=== PATIENT | male | born 1990 | race Caucasian/White ===

== ENCOUNTER 2021-03-24 16:54 | Emergency (ER) | payer OTHER, SELFPAY ==
[2021-03-24 17:04] VITALS: BP 128/80; PULSE 120; RESP 20; TEMP 36.6; O2SAT 99; BMI 28.7
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
--- NOTE | 2021-03-24 19:49 | PC.NURSE ---
Per PA, pt is a N consult. Pt resting in chair, eating/drinking without difficulty, sitter at bedside. This RN faxing to [facility].
--- NOTE | 2021-03-24 20:43 | PC.NURSE ---
PT ambulated to pod with steady gait. Calm and cooperative. PT needs crisis consult.
[2021-03-24 21:54] LABS: MANUAL DIFF FLAG NO
[2021-03-24] MEDS: Benztropine Mesylate 1 MG TABLET PO (21:55)
[2021-03-24] MEDS: LORazepam 1 MG TABLET 2 MG PO (21:55)
[2021-03-24] MEDS: risperiDONE 2 MG TABLET PO (21:56)
[2021-03-24 21:59] LABS: Basophils Absolute Auto 0.1 X10*3/uL (0.0-0.2); Basophils Percent Auto 0.4 % (0-2); Eosinophils Absolute Auto 0.1 X10*3/uL (0.0-0.4); Eosinophils Percent Auto 0.8 % (0-4); Hematocrit 41.7 % (42-52); Hemoglobin 14.5 g/dl (14.0-18.0); Imm Gran Abs Auto 0.03 X10*3/uL (0.00-0.03); Imm Gran Pct Auto 0.2 % (0.0-0.4); Lymphocytes Absolute Auto 2.6 X10*3/uL (1.2-4.9); Lymphocytes Percent Auto 19.1 % (20-40); Mean Corpuscular HGB Conc 34.8 g/dl (31.0-36.0); Mean Corpuscular Hemoglobin 31.7 pg (27.0-33.0); Mean Corpuscular Volume 91.2 fL (80-98); Mean Platelet Volume 10.4 fL (9.4-12.4); Monocytes Absolute Auto 1.2 X10*3/uL (0.1-1.2); Monocytes Percent Auto 8.6 % (2-11); Neutrophils Absolute Auto 9.5 X10*3/uL (2.0-8.3); Neutrophils Percent Auto 70.9 % (45-73); Platelet Count 200 X10*3/uL (160-400); Red Blood Count 4.57 X10*6/uL (4.60-5.80); White Blood Count 13.3 X10*3/uL (4.8-10.8)
[2021-03-24 22:26] LABS: Ethanol < 10 mg/dL
[2021-03-24 22:32] LABS: Alanine Aminotransferase 33 U/L (0-40); Albumin Level 4.7 g/dL (3.5-5.0); Alkaline Phosphatase 105 U/L (39-117); Anion Gap 17 (12-20); Aspartate Amino Transferase 31 U/L (5-37); Bilirubin Direct 0.2 mg/dL (0.0-0.5); Bilirubin Total 0.4 mg/dL (0.0-1.0); Blood Urea Nitrogen 7 mg/dL (9-16); Calcium 9.8 mg/dL (8.4-10.2); Carbon Dioxide 21 mmol/L (22-29); Chloride 105 mmol/L (96-108); Creatinine Clr Calc Pharmacy 109.2; Estimated Glomerular Filt Rate > 60; Glucose Random 125 mg/dL (60-115); Sodium 139 mmol/L (135-145); Total Protein 7.2 g/dL (6.5-8.0)
[2021-03-24] MEDS: Nicotine Polacrilex 2 MG GUM BUCCAL (23:33)
[2021-03-24 23:48] LABS: Glucose Urine UA NEG (NEG); Leukocyte Esterase Urine NEG (NEG); Nitrite Urine NEG (NEG); Specific Gravity - Urine <= 1.005 (1.005-1.025); Urine Blood NEG (NEG); Urine Ketones NEG (NEG); Urine Protein NEG (NEG-TRACE)
[2021-03-24 23:51] LABS: Appearance Urine CLEAR; Color Urine COLORLESS; UACC CULT NO
[2021-03-24 23:55] LABS: RBC Urine 0 /HPF (0); WBC Urine 0 /HPF (0-4)
[2021-03-25 00:15] LABS: Amphetamine Screen Urine Not Detected (Not Detect); Barbiturates, Urine Not Detected (Not Detect); Benzodiazepines Screen Urine Not Detected (Not Detect); Cannabinoid Screen Urine Not Detected (Not Detect); Cocaine Screen Urine Not Detected (Not Detect); Opiate Screen Urine Not Detected (Not Detect); Phencyclidine Screen Urine Not Detected (Not Detect)
[2021-03-25 00:36] LABS: COVID-19 Test Negative (Negative)
[2021-03-25 00:50] VITALS: BP 114/61; PULSE 108; RESP 18; TEMP 36.7; O2SAT 99
--- NOTE | 2021-03-25 00:57 | PC.NURSE ---
Patient just got transferred from main ED, [facility] consult ordered, per care team patient will be seen by N in the morning, patient swabbed for covid/compliant, no distress reported at this time, will continue to monitor.
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
--- NOTE | 2021-03-25 06:53 | PC.NURSE ---
Report received. PT currently sleeping, respirations even and unlabored, in no apparent distress. PT is inpatient bedsearch.
[2021-03-25] MEDS: Nicotine Polacrilex 2 MG GUM BUCCAL ×3 (07:38→14:36)
[2021-03-25] MEDS: Benztropine Mesylate 1 MG TABLET PO (09:02)
[2021-03-25 09:24] VITALS: BP 121/74; PULSE 103; RESP 16; TEMP 37.1; O2SAT 99
[2021-03-25] MEDS: Ibuprofen 800 MG TABLET PO (11:17)
== END 2021-03-25 15:16 ==
PROVIDERS: Nurse Practitioner Family; Physician Assistant; Emergency Provider Emergency Medicine Emergency Medical Services; PCP Family Medicine
DX: F20.9 Schizophrenia, unspecified (principal); F06.0 Psychotic disorder with hallucinations due to known physiological condition; R45.850 Homicidal ideations; F41.9 Anxiety disorder, unspecified; Z20.822 Contact with and (suspected) exposure to COVID-19; Z91.5 Personal history of self-harm; Z79.899 Other long term (current) drug therapy
CPT/HCPCS: 36415; 80053; 80076; 80307; 80320; 81001; 82248; 85025; 87635; 99285

== ENCOUNTER 2021-05-21 18:35 | Inpatient (IN) | payer OTHER, SELFPAY ==
[2021-05-21 18:49] VITALS: BP 128/93; PULSE 91; RESP 18; TEMP 36.3; O2SAT 98; BMI 26.9
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
--- NOTE | 2021-05-21 19:22 | PC.NURSE ---
BROTHER ROCIO [phone]
[2021-05-21 19:54] LABS: Amphetamine Screen Urine Not Detected (Not Detect); Barbiturates, Urine Not Detected (Not Detect); Benzodiazepines Screen Urine Not Detected (Not Detect); Cannabinoid Screen Urine Not Detected (Not Detect); Cocaine Screen Urine Not Detected (Not Detect); Opiate Screen Urine Not Detected (Not Detect); Phencyclidine Screen Urine Not Detected (Not Detect)
[2021-05-21 20:01] LABS: COVID-19 Test Negative (Negative)
--- NOTE | 2021-05-21 21:46 | PC.NURSE ---
Patient calm and quiet, no distress observed/reported, [facility] referral completed via smart-sheet, called [facility] intake personal, spoke with Aviva, NO Clinician ETA at this time, will continue to monitor.
[2021-05-22] MEDS: risperiDONE 2 MG TABLET PO ×3 (01:00→20:40)
[2021-05-22] MEDS: Benztropine Mesylate 1 MG TABLET PO ×3 (01:00→20:40)
[2021-05-22 01:57] VITALS: BP 111/82; PULSE 68; RESP 16; TEMP 36.8; O2SAT 99
--- NOTE | 2021-05-22 02:03 | PC.NURSE ---
Patient in bed resting at this time, compliant with night time medication, Care team assessed the patient, disposition section 12 inpatient bed search, will continue to monitor.
--- NOTE | 2021-05-22 05:51 | PC.NURSE ---
Patient slept through the night, no distress observed/reported, good behavioral control awhile awake, will continue to monitor.
[2021-05-22 08:06] VITALS: BP 127/64; PULSE 81; RESP 17; TEMP 36.7
--- NOTE | 2021-05-22 08:30 | ECG_ITS ---
Test Reason : MEDICAL CLEARANCE Blood Pressure : / mmHG Vent. Rate : 055 BPM Atrial Rate : 055 BPM P-R Int : 120 ms QRS Dur : 086 ms QT Int : 434 ms P-R-T Axes : -18 067 062 degrees QTc Int : 415 ms Sinus bradycardia Early repolarization Otherwise normal ECG When compared with ECG of 21-NOV-2018 21:39, No significant change was found Referred By: Rajni Arce Electronically Signed By:Nader Bailey
[2021-05-22 08:58] LABS: MANUAL DIFF FLAG NO
[2021-05-22 09:01] LABS: Basophils Percent Auto 0.5 % (0-2); Eosinophils Absolute Auto 0.4 X10*3/uL (0.0-0.4); Eosinophils Percent Auto 6.3 % (0-4); Hematocrit 40.2 % (42-52); Hemoglobin 13.7 g/dl (14.0-18.0); Imm Gran Abs Auto 0.01 X10*3/uL (0.00-0.03); Imm Gran Pct Auto 0.2 % (0.0-0.4); Lymphocytes Absolute Auto 1.8 X10*3/uL (1.2-4.9); Lymphocytes Percent Auto 29.4 % (20-40); Mean Corpuscular HGB Conc 34.1 g/dl (31.0-36.0); Mean Corpuscular Hemoglobin 31.1 pg (27.0-33.0); Mean Corpuscular Volume 91.4 fL (80-98); Mean Platelet Volume 10.5 fL (9.4-12.4); Monocytes Absolute Auto 0.7 X10*3/uL (0.1-1.2); Monocytes Percent Auto 11.2 % (2-11); Neutrophils Absolute Auto 3.3 X10*3/uL (2.0-8.3); Neutrophils Percent Auto 52.4 % (45-73); Platelet Count 176 X10*3/uL (160-400); Red Cell Distribution Width 12.3 % (11.0-16.0); White Blood Count 6.2 X10*3/uL (4.8-10.8)
[2021-05-22 09:05] LABS: INTERNATIONAL NORM RATIO 1.1 (0.9-1.1); Prothrombin Time 13.1 SEC (10.8-13.0)
[2021-05-22 09:26] LABS: Alanine Aminotransferase 21 U/L (0-40); Albumin Level 4.3 g/dL (3.5-5.0); Alkaline Phosphatase 87 U/L (39-117); Anion Gap 10 (12-20); Aspartate Amino Transferase 15 U/L (5-37); Bilirubin Total 0.4 mg/dL (0.0-1.0); Blood Urea Nitrogen 9 mg/dL (9-16); Calcium 9.5 mg/dL (8.4-10.2); Carbon Dioxide 29 mmol/L (22-29); Chloride 106 mmol/L (96-108); Creatinine Clr Calc Pharmacy 101.4; Estimated Glomerular Filt Rate > 60; Glucose Random 84 mg/dL (60-115); Potassium 4.6 mmol/L (3.3-5.1); Sodium 140 mmol/L (135-145); Total Protein 6.4 g/dL (6.5-8.0)
--- NOTE | 2021-05-22 11:43 | PC.NURSE ---
pt has been calm, requested nicotine lozenges which was provided, pt will be admitted to at some point today
--- NOTE | 2021-05-22 12:30 | PC.NURSE ---
received report from prior nurse, client seems guarded, patient appears in no distress
[2021-05-22 16:09] VITALS: BP 116/59; PULSE 76; RESP 15; TEMP 37.1; O2SAT 100
--- NOTE | 2021-05-22 19:43 | PC.NURSE ---
RN to RN report given to JESÚS Billy on M3. Plan for admission to room 307-1. Will continue to monitor.
--- NOTE | 2021-05-22 20:24 | PC.NURSE ---
Pt pending admission/transfer to M3 upon entering orders. Unable to admit until admission orders are entered. M3 also aware.
[2021-05-22 21:30] VITALS: BP 120/68; PULSE 72; RESP 16; TEMP 36.9; O2SAT 99
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
[2021-05-23 07:33] LABS: Cholesterol 176 mg/dL; HDL Cholesterol 36 mg/dL; LDL Cholesterol Calculated 122 mg/dl; Triglycerides 93 mg/dL
[2021-05-23 07:53] LABS: Thyroid Stimulating Hormone 0.58 uIU/mL (0.32-4.0)
[2021-05-23 07:54] LABS: Estimated Average Glucose 103 mg/dL; Hemoglobin A1c % 5.2 %
[2021-05-23 08:02] VITALS: BP 101/55; PULSE 72; RESP 18; TEMP 36.6; O2SAT 100
[2021-05-23] MEDS: Benztropine Mesylate 1 MG TABLET PO ×2 (08:05→21:10)
[2021-05-23] MEDS: risperiDONE 2 MG TABLET PO ×2 (08:05→21:10)
--- NOTE | 2021-05-23 13:14 | P.HPPS_ITS ---
HPI Chief Complaint: SI Sources of Information: patient interviewed, chart reviewed and crisis/core team assessment reviewed HPI Subjective Notes: Conditional Voluntary Narrative: Mr. Orozco is a 30 year-old male with hx of schizophrenia who was brought [place] [facility] [place] after mother called 911 due to pt endorsing suicidal ideation with plan to jump out of window. Pt also reported several delusional content including thinking that he has a daughter that he has never met and voices telling him that many bad things will happen to him. In the ED his utox was negative. On the unit, pt continues to endorse depressed mood, suicidal ideation prompted by increase paranoid delusions thinking that he will soon as voices are telling him and that he has a daughter. He reports taking medications as prescribed. He reports fair sleep/appetite. He also reports thinking that neighbors were talking about him and could hear his conversations with his family. He reports not feeling safe anywhere. He currently denies any plan or intent to hurt himself. Medical Evaluation Reviewed: Yes Inpatient: 02/2021 at [facility], multiple other admissions. OP: YUSUF Singh Past trials: risperiodne Suicide attempts: none [facility] Medical History Schizoaffective disorder Family History: none Social History: lives with parents. No children. 2 brothers and one sister. Substance History: none Trauma History: denies Diagnostics Vital Signs (24Hr): Vital Signs - 24 hr 05/23/21 19:40 05/24/21 07:48 Temperature 98.2 F 98.2 F Pulse Rate 81 86 Respiratory Rate 17 Blood Pressure 119/69 105/57 L Pulse Oximetry 99 95 Body Mass Index 26.9 Labs Results: 05/22/21 08:55 05/22/21 08:55 Labs: Laboratory Results - last 48 hr 05/23/21 05/23/21 06:50 06:51 Estimat Average Glucose 103 Hemoglobin A1c % 5.2 Triglycerides 93 Cholesterol 176 LDL Cholesterol, Calc 122 HDL Cholesterol 36 TSH 0.58 Meds/Allergies Meds Home Medications Acetaminophen (Acetaminophen 325 Mg Tablet) 650 mg PO Q6H PRN PRN Reason: Headache/Pain Mild Scale (1-3) Al Hydroxide/Mg Hydroxide (Magnesium Hydrox/Alum Hydrox 30 Ml Oral.Susp) 30 ml PO Q6H PRN PRN Reason: Heartburn/Nausea Benztropine Mesylate (Benztropine Mesylate 1 Mg Tablet) 1 mg PO BID [facility] Last Admin: 05/24/21 07:49 Dose: 1 mg Documented by: Haloperidol (Haloperidol 5 Mg Tablet) 5 mg PO BID [facility] Hydroxyzine HCl (Hydroxyzine Hcl 25 Mg Tablet) 25 mg PO BEDTIME PRN PRN Reason: Anxiety Lorazepam (Lorazepam 1 Mg Tablet) 1 mg PO Q4H PRN PRN Reason: Anxiety Magnesium Hydroxide (Milk Of Magnesia 30 Ml Oral.Susp) 30 ml PO DAILY PRN PRN Reason: Constipation Nicotine Polacrilex (Nicotine Polacrilex 4 Mg Lozenge) 4 mg BUCCAL Q2H PRN PRN Reason: smoking craving Last Admin: 05/24/21 13:02 Dose: 4 mg Documented by: Risperidone (Risperidone 2 Mg Tablet) 2 mg PO BID [facility] Last Admin: 05/24/21 07:49 Dose: 2 mg Documented by: Risperidone (Risperidone Microspheres 50 Mg/2 Ml Syringe) 50 mg IM Q14D GRACE Trazodone HCl (Trazodone Hcl 50 Mg Tablet) 50 mg PO BEDTIME PRN PRN Reason: Insomnia Last Admin: 05/23/21 21:10 Dose: 50 mg Documented by: Allergies Allergies Allergy/AdvReac Type Severity Reaction Status Date / Time No Known Allergies Allergy Verified 05/21/21 18:56 [No Known Allergies*] Mental Status Exam Mental Status Exam Narrative: Appearance: casually groomed, fair hygiene, in NAD Behavior: calm, cooperative Psychomotor: no agitation or retardation noted Speech: clear, normal rate/rhythm/volume, spontaneous TP: tangential TC: paranoid/persecutory delusions of neighbors hearing conversations and someone trying to hurt him Mood: anxious Affect:congruent, constricted SI:denies HI:denies AH/VH:AH telling him that he will soon Delusions:paranoid/persecutory delusions Insight/judgment:poor x 2. Memory/cog: alert, oriented x 3. impaired secondary to psychiatric problems. Assessment & Plan Assessment & Plan (1) Chronic schizophrenia: Status: Acute Code(s): F20.9 - Schizophrenia, unspecified Assessment and Plan: 1. continue oral risperidone 2mg po BID- pt also on risperidone consta- will have to verify last dose. 2. Add haldol prn for agitation/psychosis and ativan 1mg po q4h prn anxiety. Reason for continued inpatient stay Substantial Risk for: harm to self and inability to function
[2021-05-23 19:40] VITALS: BP 119/69; PULSE 81; TEMP 36.8; O2SAT 99
[2021-05-23] MEDS: traZODone HCL 50 MG TABLET PO (21:10)
[2021-05-24 07:48] VITALS: BP 105/57; PULSE 86; RESP 17; TEMP 36.8; O2SAT 95
[2021-05-24] MEDS: Benztropine Mesylate 1 MG TABLET PO ×2 (07:49→19:58)
[2021-05-24] MEDS: risperiDONE 2 MG TABLET PO ×2 (07:49→19:58)
--- NOTE | 2021-05-24 13:22 | HO.PSYCHPN ---
Subjective Subjective Date of Service: 05/24/21 Reason For Visit: SI Subjective Notes: Conditional Voluntary Interim History: Pt continues to present as hypervigilant, not feeling safe in the unit thinking that he will soon. He continues to hear voices telling him that he will . He denies SI/HI. He denies any plan or intent to hurt himself. He is open to medications- adding haldol and ativan. Medication Compliance: Yes Side effects from medications: No Review of Systems Review of Systems Constitutional: No Weight loss, No Fever, No Chills, No Night Sweats, No Fatigue, No Malaise ENT/Mouth: No Hearing loss, No Ear Pain, No Nasal Congestion, No Sinus Pain, No Hoarseness, No sore throat, No Rhinorrhea, No Swallowing Difficulty Eyes: No Eye Pain, No Swelling, No Redness, No Foreign Body, No Discharge, No Vision Changes Cardiovascular: No Chest Pain, No SOB, No Dyspnea on Exertion, No Orthopnea, No Edema, No Palpitations Respiratory: No Cough, No Sputum, No Wheezing, No Smoke Exposure, No Dyspnea Gastrointestinal: No Nausea, No Vomiting, No Diarrhea, No Constipation, No abdominal Pain, No Hematochezia, No Melena Genitourinary: no irregular bleeding, No Dysuria, No Urinary Frequency, No Hematuria, No Urinary Incontinence, No Urgency, No Flank Pain, No Urinary Flow Changes, No Hesitancy Musculoskeletal: No joint pain, No Myalgias, No Joint Swelling Skin: No Skin Lesions, No rash Neuro: No Weakness, No Numbness, No Paresthesias, No Loss of Consciousness, No Dizziness, No Headache Psych: As noted per HPI Heme/Lymph: No Bruising, No Bleeding,No Lymphadenopathy Endocrine: No Polyuria, No Polydipsia, No Temperature Intolerance Yes all other systems are reviewed and are negative Mental Status Exam Mental Status Exam Narrative: Appearance: casually groomed, fair hygiene, in NAD Behavior: calm, cooperative Psychomotor: no agitation or retardation noted Speech: clear, normal rate/rhythm/volume, spontaneous TP: tangential TC: paranoid/persecutory delusions of neighbors hearing conversations and someone trying to hurt him Mood: anxious Affect:congruent, constricted SI:denies HI:denies AH/VH:AH telling him that he will soon Delusions:paranoid/persecutory delusions Insight/judgment:poor x 2. Memory/cog: alert, oriented x 3. impaired secondary to psychiatric problems. Diagnostics Vital Signs (24Hr): Vital Signs - 24 hr 05/23/21 19:40 05/24/21 07:48 Temperature 98.2 F 98.2 F Pulse Rate 81 86 Respiratory Rate 17 Blood Pressure 119/69 105/57 L Pulse Oximetry 99 95 Body Mass Index 26.9 Labs Results: 05/22/21 08:55 05/22/21 08:55 Labs: Laboratory Results - last 48 hr 05/23/21 05/23/21 06:50 06:51 Estimat Average Glucose 103 Hemoglobin A1c % 5.2 Triglycerides 93 Cholesterol 176 LDL Cholesterol, Calc 122 HDL Cholesterol 36 TSH 0.58 Medications Medications Current Medications Generic Name Dose Route Start Last Admin Trade Name Freq PRN Reason Stop Dose Admin Acetaminophen 650 mg 05/22/21 20:25 Acetaminophen 325 Mg Tablet PO Q6H PRN Headache/Pain Mild Scale (1-3) Al Hydroxide/Mg Hydroxide 30 ml 05/22/21 20:25 Magnesium Hydrox/Alum Hydrox 30 Ml Oral.Susp PO Q6H PRN Heartburn/Nausea Benztropine Mesylate 1 mg 05/21/21 23:45 05/24/21 07:49 Benztropine Mesylate 1 Mg Tablet PO 1 mg BID GRACE Administration Haloperidol 5 mg 05/24/21 13:05 Haloperidol 5 Mg Tablet PO BID GRACE Hydroxyzine HCl 25 mg 05/22/21 20:25 Hydroxyzine Hcl 25 Mg Tablet PO BEDTIME PRN Anxiety Lorazepam 1 mg 05/24/21 13:05 Lorazepam 1 Mg Tablet PO Q4H PRN Anxiety Magnesium Hydroxide 30 ml 05/22/21 20:25 Milk Of Magnesia 30 Ml Oral.Susp PO DAILY PRN Constipation Nicotine Polacrilex 4 mg 05/22/21 09:22 05/24/21 13:02 Nicotine Polacrilex 4 Mg Lozenge BUCCAL 4 mg Q2H PRN Administration smoking craving Risperidone 2 mg 05/21/21 23:45 05/24/21 07:49 Risperidone 2 Mg Tablet PO 2 mg BID GRACE Administration Risperidone 50 mg 05/21/21 23:45 Risperidone Microspheres 50 Mg/2 Ml Syringe IM Q14D GRACE Trazodone HCl 50 mg 05/22/21 20:25 05/23/21 21:10 Trazodone Hcl 50 Mg Tablet PO 50 mg BEDTIME PRN Administration Insomnia Allergies Allergies Allergy/AdvReac Type Severity Reaction Status Date / Time No Known Allergies Allergy Verified 05/21/21 18:56 [No Known Allergies*] Assessment & Plan Assessment & Plan (1) Chronic schizophrenia: Status: Acute Code(s): F20.9 - Schizophrenia, unspecified Assessment and Plan: 1. continue oral risperidone 2mg po BID- pt also on risperidone consta- will have to verify last dose. 2. Add haldol prn for agitation/psychosis and ativan 1mg po q4h prn anxiety. Greater than 50% of the session was spent on counseling and/or coordination of care Reason for contiued inpatient stay Substantial Risk for: harm to self and inability to function
[2021-05-24] MEDS: HaloperidoL 5 MG TABLET PO ×2 (13:30→19:58)
[2021-05-24 19:50] VITALS: BP 106/64; PULSE 74; RESP 16; TEMP 36.7; O2SAT 97
[2021-05-24] MEDS: traZODone HCL 50 MG TABLET PO (19:58)
[2021-05-24] MEDS: hydrOXYzine HCL 25 MG TABLET PO (21:06)
[2021-05-25 04:05] LABS: Folate 5.3 ng/mL (> or = 4.0); Vitamin B12 196 pg/mL (200-900)
[2021-05-25 08:16] VITALS: BP 118/58; PULSE 66; RESP 16; O2SAT 97
[2021-05-25] MEDS: Benztropine Mesylate 1 MG TABLET PO ×2 (08:19→20:10)
[2021-05-25] MEDS: risperiDONE 2 MG TABLET PO ×2 (08:19→20:10)
[2021-05-25] MEDS: HaloperidoL 5 MG TABLET PO ×2 (08:19→20:10)
[2021-05-25] MEDS: Acetaminophen 325 MG TABLET 650 MG PO ×2 (12:59→18:54)
--- NOTE | 2021-05-25 14:17 | HO.PSYCHPN ---
Subjective Subjective Date of Service: 05/25/21 Reason For Visit: SI Subjective Notes: Conditional Voluntary Healthcare Proxy: No Guardianship: No Medical Problems Affecting Mental Status: No Interim History: pt is very disorganized and it is difficult to follow his narrative. the only consistent message he communicates is that he would like to discharge from the hospital sooner rather than later. he talks at some length about the TV's being too loud and overhearing people talking when MD asks about AH. he also spends a fair amount of time discoursing on his behaviors in pursuit of the opposite sex, and his frustrations in that department as well. states he is no longer mad at his neighbor and is safe to go home and act normal. 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 he denies SI but does say he is concerned that others may attack him and he is fully prepared to defend himself should that occur. denies AVH but says, but i hear the TV or the nurses talking. or they talk in a low voice if they want to say a secret. he feels the medications he takes help with his voices and decreases the phenomenon he experiences of people throwing their voices, such as making it appear their voice is coming from the bathroom when they are not in the bathroom. he is content with his medications regimen and has no other requests or complaints. MD suggests he could use a bit more time in the hospital to allow the medications to get his thoughts more organized and settled. Medication Compliance: Yes Side effects from medications: No Attending Groups: Yes Mental Status Exam Mental Status Exam Narrative: pt found resting in bed mid-morning. appropriately dressed and groomed. cooperative with interview. speech incr in amount, rate. soft and flattened in prosody. decr latency. thoughts disorganized, loose, tangential. delusions but not much paranoia. affect flexible, appropriate, normo-intense, non-labile. denies AH but from context it appears he likely is experiencing AH. denies SI/HI. Diagnostics Vital Signs (24Hr): Vital Signs - 24 hr 05/24/21 19:50 05/25/21 08:16 Temperature 98.1 F Pulse Rate 74 66 Respiratory Rate 16 16 Blood Pressure 106/64 118/58 L Pulse Oximetry 97 97 Body Mass Index 26.9 Labs Results: 05/22/21 08:55 05/22/21 08:55 Labs: Laboratory Results - last 48 hr 05/23/21 06:51 Vitamin B12 196 L Folate 5.3 Medications Medications Current Medications Generic Name Dose Route Start Last Admin Trade Name Freq PRN Reason Stop Dose Admin Acetaminophen 650 mg 05/22/21 20:25 05/25/21 12:59 Acetaminophen 325 Mg Tablet PO 650 mg Q6H PRN Administration Headache/Pain Mild Scale (1-3) Al Hydroxide/Mg Hydroxide 30 ml 05/22/21 20:25 Magnesium Hydrox/Alum Hydrox 30 Ml Oral.Susp PO Q6H PRN Heartburn/Nausea Benztropine Mesylate 1 mg 05/21/21 23:45 05/25/21 08:19 Benztropine Mesylate 1 Mg Tablet PO 1 mg BID GRACE Administration Haloperidol 5 mg 05/24/21 13:05 05/25/21 08:19 Haloperidol 5 Mg Tablet PO 5 mg BID GRACE Administration Hydroxyzine HCl 25 mg 05/22/21 20:25 05/24/21 21:06 Hydroxyzine Hcl 25 Mg Tablet PO 25 mg BEDTIME PRN Administration Anxiety Lorazepam 1 mg 05/24/21 13:05 Lorazepam 1 Mg Tablet PO Q4H PRN Anxiety Magnesium Hydroxide 30 ml 05/22/21 20:25 Milk Of Magnesia 30 Ml Oral.Susp PO DAILY PRN Constipation Nicotine Polacrilex 4 mg 05/22/21 09:22 05/25/21 14:15 Nicotine Polacrilex 4 Mg Lozenge BUCCAL 4 mg Q2H PRN Administration smoking craving Risperidone 2 mg 05/21/21 23:45 05/25/21 08:19 Risperidone 2 Mg Tablet PO 2 mg BID GRACE Administration Risperidone 50 mg 05/21/21 23:45 Risperidone Microspheres 50 Mg/2 Ml Syringe IM Q14D GRACE Trazodone HCl 50 mg 05/22/21 20:25 05/24/21 19:58 Trazodone Hcl 50 Mg Tablet PO 50 mg BEDTIME PRN Administration Insomnia Allergies Allergies Allergy/AdvReac Type Severity Reaction Status Date / Time No Known Allergies Allergy Verified 05/21/21 18:56 [No Known Allergies*] Assessment & Plan Assessment & Plan (1) Chronic schizophrenia: Status: Acute Code(s): F20.9 - Schizophrenia, unspecified Assessment and Plan: improving but still quite psychotic and delusional. 1. continue oral risperidone 2mg po BID- pt also on risperdal consta- will have to verify last dose. calls put in to [place] [place] today. 2. Added haldol for agitation/psychosis and ativan 1mg po q4h prn anxiety. Greater than 50% of the session was spent on counseling and/or coordination of care Reason for contiued inpatient stay Substantial Risk for: harm to others, inability to function and rapid decompensation
[2021-05-25 19:48] VITALS: BP 131/73; PULSE 78; RESP 18; TEMP 36.7; O2SAT 97
[2021-05-25] MEDS: traZODone HCL 50 MG TABLET PO (20:10)
[2021-05-26 07:50] LABS: Glucose, Whole Blood 96 mg/dL (60-115)
[2021-05-26] MEDS: HaloperidoL 5 MG TABLET PO ×2 (08:12→20:30)
[2021-05-26] MEDS: risperiDONE 2 MG TABLET PO ×2 (08:13→20:30)
[2021-05-26] MEDS: Benztropine Mesylate 1 MG TABLET PO ×2 (08:13→20:30)
[2021-05-26 08:38] VITALS: BP 118/65; PULSE 62; RESP 18; TEMP 35.8; O2SAT 99
--- NOTE | 2021-05-26 12:24 | HE.PHANOTE ---
Patient Own Med: Risperdal Consta Dose due 06/02/2021, patient will bring in if still inpatient Nurse and MD are aware Arianna Esteban, PharmD
--- NOTE | 2021-05-26 16:16 | HO.PSYCHPN ---
Subjective Subjective Date of Service: 05/26/21 Reason For Visit: SI Interim History: pt reports he slept well last evening, feels comfortable on the unit and around other people today. denies SI or HI. feeling calm, says he can be at home around his neighbors. he is not sure if they were targeting him, but he no longer has any urges to get back at them and just wants to stay in his room and watch TV and play video games. per staff, pt has been active and appropriate, however isolative. showered. AH improved. watching TV in a separate area from everyone else. Mental Status Exam Mental Status Exam Narrative: pt found standing at the nursing station mid-morning. appropriately dressed and groomed. cooperative with interview. speech incr in amount, nml rate. soft and flattened in prosody. decr latency. thoughts more linear and organized than yesterday. questioning his delusions, paranoia not terribly salient. affect flexible, appropriate, normo-intense, non-labile. denies SI/HI. Diagnostics Vital Signs (24Hr): Vital Signs - 24 hr 05/25/21 19:48 05/26/21 08:38 Temperature 98.1 F 96.4 F L Pulse Rate 78 62 Respiratory Rate 18 18 Blood Pressure 131/73 118/65 Pulse Oximetry 97 99 Body Mass Index 26.9 Labs Results: 05/22/21 08:55 05/22/21 08:55 Labs: Laboratory Results - last 48 hr 05/23/21 05/26/21 06:51 07:46 POC Glucose 96 Vitamin B12 196 L Folate 5.3 Medications Medications Current Medications Generic Name Dose Route Start Last Admin Trade Name Vidalq PRN Reason Stop Dose Admin Acetaminophen 650 mg 05/22/21 20:25 05/25/21 18:54 Acetaminophen 325 Mg Tablet PO 650 mg Q6H PRN Administration Headache/Pain Mild Scale (1-3) Al Hydroxide/Mg Hydroxide 30 ml 05/22/21 20:25 Magnesium Hydrox/Alum Hydrox 30 Ml Oral.Susp PO Q6H PRN Heartburn/Nausea Benztropine Mesylate 1 mg 05/21/21 23:45 05/26/21 08:13 Benztropine Mesylate 1 Mg Tablet PO 1 mg BID GRACE Administration Haloperidol 5 mg 05/24/21 13:05 05/26/21 08:12 Haloperidol 5 Mg Tablet PO 5 mg BID GRACE Administration Hydroxyzine HCl 25 mg 05/22/21 20:25 05/24/21 21:06 Hydroxyzine Hcl 25 Mg Tablet PO 25 mg BEDTIME PRN Administration Anxiety Lorazepam 1 mg 05/24/21 13:05 Lorazepam 1 Mg Tablet PO Q4H PRN Anxiety Magnesium Hydroxide 30 ml 05/22/21 20:25 Milk Of Magnesia 30 Ml Oral.Susp PO DAILY PRN Constipation Nicotine Polacrilex 4 mg 05/22/21 09:22 05/26/21 14:55 Nicotine Polacrilex 4 Mg Lozenge BUCCAL 4 mg Q2H PRN Administration smoking craving Patient Own 1 each 06/02/21 09:00 Medication ( SUBCUT Risperdal Conerta) Q14D GRACE Risperidone 2 mg 05/21/21 23:45 05/26/21 08:13 Risperidone 2 Mg Tablet PO 2 mg BID GRACE Administration Trazodone HCl 50 mg 05/22/21 20:25 05/25/21 20:10 Trazodone Hcl 50 Mg Tablet PO 50 mg BEDTIME PRN Administration Insomnia Allergies Allergies Allergy/AdvReac Type Severity Reaction Status Date / Time No Known Allergies Allergy Verified 05/21/21 18:56 [No Known Allergies*] Assessment & Plan Assessment & Plan (1) Chronic schizophrenia: Status: Acute Code(s): F20.9 - Schizophrenia, unspecified Assessment and Plan: psychosis improving daily. 1. continue oral risperidone 2mg po BID- pt also on risperdal consta- last dose 05/19, next due 06/02. 2. Added haldol for agitation/psychosis and ativan 1mg po q4h prn anxiety. Greater than 50% of the session was spent on counseling and/or coordination of care Reason for contiued inpatient stay Substantial Risk for: harm to self, inability to function and rapid decompensation
[2021-05-26 17:53] VITALS: BP 123/73; PULSE 87; RESP 16; TEMP 37.2; O2SAT 98
[2021-05-26] MEDS: traZODone HCL 50 MG TABLET PO (20:29)
[2021-05-26 22:00] VITALS: BP 120/56; PULSE 70; TEMP 36.7; O2SAT 100
[2021-05-27 06:00] VITALS: BP 103/51; PULSE 71; TEMP 36.7; O2SAT 97
[2021-05-27] MEDS: HaloperidoL 5 MG TABLET PO ×2 (08:14→20:08)
[2021-05-27] MEDS: risperiDONE 2 MG TABLET PO ×2 (08:14→20:08)
[2021-05-27] MEDS: Benztropine Mesylate 1 MG TABLET PO ×2 (08:14→20:08)
--- NOTE | 2021-05-27 10:58 | HO.PSYCHPN ---
Subjective Subjective Date of Service: 05/27/21 Reason For Visit: SI Interim History: pt reports he slept well last evening, feels comfortable on the unit and around other people today. somewhat slow to respond to some questions about his paranoia and AH, not convincing in his denials of them. pt remains hopeful of discharge by tuesday. he has no other complaints or requests for MD. per staff, pt has been active and appropriate on the unit. visible in the milieu, c/o anxiety, odd affect. calm and pleasant. attending groups. per collateral from his mother, he has been telling her he continues to hear voices and thinks people are out to get him. she believes he is not at his baseline. Mental Status Exam Mental Status Exam Narrative: pt found in his room shortly after he had taken a shower. appropriately dressed and groomed. cooperative with interview. speech nml in amount, incr in rate. soft and flattened in prosody. nml to incr latency. thoughts continue more linear and organized than 2 days prior. does not express any over delusions, does appear mistrustful of MD and hesitant in his responses. affect moderately flexible, appropriate, normo-intense, non-labile. denies SI/HI. Diagnostics Vital Signs (24Hr): Vital Signs - 24 hr 05/26/21 17:53 05/26/21 22:00 05/27/21 06:00 Temperature 99.0 F 98.1 F 98.1 F Pulse Rate 87 70 71 Respiratory Rate 16 Blood Pressure 123/73 120/56 L 103/51 L Pulse Oximetry 98 100 97 Body Mass Index 26.9 Labs Results: 05/22/21 08:55 05/22/21 08:55 Labs: Laboratory Results - last 48 hr 05/26/21 07:46 POC Glucose 96 Medications Medications Current Medications Generic Name Dose Route Start Last Admin Trade Name Freq PRN Reason Stop Dose Admin Acetaminophen 650 mg 05/22/21 20:25 05/25/21 18:54 Acetaminophen 325 Mg Tablet PO 650 mg Q6H PRN Administration Headache/Pain Mild Scale (1-3) Al Hydroxide/Mg Hydroxide 30 ml 05/22/21 20:25 Magnesium Hydrox/Alum Hydrox 30 Ml Oral.Susp PO Q6H PRN Heartburn/Nausea Benztropine Mesylate 1 mg 05/21/21 23:45 05/27/21 08:14 Benztropine Mesylate 1 Mg Tablet PO 1 mg BID GRACE Administration Haloperidol 5 mg 05/24/21 13:05 05/27/21 08:14 Haloperidol 5 Mg Tablet PO 5 mg BID GRACE Administration Hydroxyzine HCl 25 mg 05/22/21 20:25 05/24/21 21:06 Hydroxyzine Hcl 25 Mg Tablet PO 25 mg BEDTIME PRN Administration Anxiety Lorazepam 1 mg 05/24/21 13:05 Lorazepam 1 Mg Tablet PO Q4H PRN Anxiety Magnesium Hydroxide 30 ml 05/22/21 20:25 Milk Of Magnesia 30 Ml Oral.Susp PO DAILY PRN Constipation Nicotine Polacrilex 4 mg 05/22/21 09:22 05/27/21 10:23 Nicotine Polacrilex 4 Mg Lozenge BUCCAL 4 mg Q2H PRN Administration smoking craving Patient Own 1 each 06/02/21 09:00 Medication ( SUBCUT Risperdal Conerta) Q14D GRACE Risperidone 2 mg 05/21/21 23:45 05/27/21 08:14 Risperidone 2 Mg Tablet PO 2 mg BID GRACE Administration Trazodone HCl 50 mg 05/22/21 20:25 05/26/21 20:29 Trazodone Hcl 50 Mg Tablet PO 50 mg BEDTIME PRN Administration Insomnia Allergies Allergies Allergy/AdvReac Type Severity Reaction Status Date / Time No Known Allergies Allergy Verified 05/21/21 18:56 [No Known Allergies*] Assessment & Plan Assessment & Plan (1) Chronic schizophrenia: Status: Acute Code(s): F20.9 - Schizophrenia, unspecified Assessment and Plan: psychosis improved from admission. 1. continue oral risperidone 2mg po BID- pt also on risperdal consta- last dose 05/19, next due 06/02. 2. Added haldol 5 BID scheduled for agitation/psychosis and ativan 1mg po q4h prn anxiety. Greater than 50% of the session was spent on counseling and/or coordination of care Reason for contiued inpatient stay Substantial Risk for: harm to others, inability to function and rapid decompensation
[2021-05-27] MEDS: Acetaminophen 325 MG TABLET 650 MG PO (14:31)
[2021-05-27 20:42] VITALS: BP 122/58; PULSE 92; TEMP 37.1; O2SAT 99
[2021-05-27] MEDS: traZODone HCL 50 MG TABLET PO (21:16)
[2021-05-28 06:00] VITALS: BP 127/58; PULSE 67; RESP 16; TEMP 36.9; O2SAT 98
[2021-05-28 07:00] VITALS: BMI 26.9
[2021-05-28] MEDS: Benztropine Mesylate 1 MG TABLET PO ×2 (08:51→20:00)
[2021-05-28] MEDS: HaloperidoL 5 MG TABLET PO ×2 (08:51→20:00)
[2021-05-28] MEDS: risperiDONE 2 MG TABLET PO ×2 (08:51→20:00)
--- NOTE | 2021-05-28 11:25 | HO.PSYCHPN ---
Subjective Subjective Date of Service: 05/28/21 Reason For Visit: SI Interim History: pt reports he slept well last evening, feels comfortable on the unit and around other people today. excessive eye contact and somewhat anxious affect appearing forced or put-on. pt reports he is keeping himself busy with groups, painting, and TV; remains hopeful of discharge tomorrow. he has no other complaints or requests for MD. per staff, pt has been active and cooperative on the unit. visible in the milieu, odd affect possibly RIS and laughing at odd moments. attending groups. Mental Status Exam Mental Status Exam Narrative: pt found walking the [place]. appropriately dressed and groomed. cooperative with interview; excessive eye contact and decreased blink. speech incr in amount, nml in rate. soft and flattened in prosody. nml to incr latency. thoughts less linear and more disorganized than yesterday; on being asked about his mood went on a tangential monologue about his breakfast experience this morning. does not express any overt delusions, does appear anxious and hesitant in his responses despite informing MD he feels fine and is experiencing no psychotic Sx. affect flexible but anxious appearing, tense, non-labile. denies SI/AVH. Diagnostics Vital Signs (24Hr): Vital Signs - 24 hr 05/27/21 20:42 05/28/21 06:00 Temperature 98.7 F 98.5 F Pulse Rate 92 67 Respiratory Rate 16 Blood Pressure 122/58 L 127/58 L Pulse Oximetry 99 98 Body Mass Index 26.9 Labs Results: 05/22/21 08:55 05/22/21 08:55 Medications Medications Current Medications Generic Name Dose Route Start Last Admin Trade Name Freq PRN Reason Stop Dose Admin Acetaminophen 650 mg 05/22/21 20:25 05/27/21 14:31 Acetaminophen 325 Mg Tablet PO 650 mg Q6H PRN Administration Headache/Pain Mild Scale (1-3) Al Hydroxide/Mg Hydroxide 30 ml 05/22/21 20:25 Magnesium Hydrox/Alum Hydrox 30 Ml Oral.Susp PO Q6H PRN Heartburn/Nausea Benztropine Mesylate 1 mg 05/21/21 23:45 05/28/21 08:51 Benztropine Mesylate 1 Mg Tablet PO 1 mg BID GRACE Administration Haloperidol 5 mg 05/24/21 13:05 05/28/21 08:51 Haloperidol 5 Mg Tablet PO 5 mg BID GRACE Administration Hydroxyzine HCl 25 mg 05/22/21 20:25 05/24/21 21:06 Hydroxyzine Hcl 25 Mg Tablet PO 25 mg BEDTIME PRN Administration Anxiety Lorazepam 1 mg 05/24/21 13:05 Lorazepam 1 Mg Tablet PO Q4H PRN Anxiety Magnesium Hydroxide 30 ml 05/22/21 20:25 Milk Of Magnesia 30 Ml Oral.Susp PO DAILY PRN Constipation Nicotine Polacrilex 4 mg 05/22/21 09:22 05/28/21 11:00 Nicotine Polacrilex 4 Mg Lozenge BUCCAL 4 mg Q2H PRN Administration smoking craving Patient Own 1 each 06/02/21 09:00 Medication ( SUBCUT Risperdal Conerta) Q14D GRACE Risperidone 2 mg 05/21/21 23:45 05/28/21 08:51 Risperidone 2 Mg Tablet PO 2 mg BID GRACE Administration Trazodone HCl 50 mg 05/22/21 20:25 05/27/21 21:16 Trazodone Hcl 50 Mg Tablet PO 50 mg BEDTIME PRN Administration Insomnia Allergies Allergies Allergy/AdvReac Type Severity Reaction Status Date / Time No Known Allergies Allergy Verified 05/21/21 18:56 [No Known Allergies*] Assessment & Plan Assessment & Plan (1) Chronic schizophrenia: Status: Acute Code(s): F20.9 - Schizophrenia, unspecified Assessment and Plan: psychosis improved from admission. 1. continue oral risperidone 2mg po BID- pt also on risperdal consta- last dose 05/19, next due 06/02. 2. Added haldol 5 BID scheduled for agitation/psychosis and ativan 1mg po q4h prn anxiety. 3. relying on collateral input from pt's mother re improvement to baseline as pt appears to not be forthcoming about his Sx. Greater than 50% of the session was spent on counseling and/or coordination of care Reason for contiued inpatient stay Substantial Risk for: harm to others, inability to function and rapid decompensation
[2021-05-28] MEDS: Acetaminophen 325 MG TABLET 650 MG PO (16:31)
[2021-05-28 17:01] VITALS: BP 116/70; PULSE 64; RESP 16; TEMP 37.3; O2SAT 100
[2021-05-28] MEDS: traZODone HCL 50 MG TABLET PO (20:00)
[2021-05-29 06:00] VITALS: BP 115/58; PULSE 73; RESP 16; TEMP 36.8; O2SAT 95
[2021-05-29] MEDS: Benztropine Mesylate 1 MG TABLET PO (08:49)
[2021-05-29] MEDS: risperiDONE 2 MG TABLET PO (08:49)
[2021-05-29] MEDS: HaloperidoL 5 MG TABLET PO (08:49)
--- NOTE | 2021-05-29 13:07 | P.DS_ITS ---
DS: Providers Provider Date of Service: 05/29/21 Date of admission: 05/22/21 20:25 Date of discharge: 05/29/21 Primary care physician: [facility] DS: Diagnosis Discharge Diagnosis (1) Chronic schizophrenia: Status: Acute DS: Medications Discharge Medications Home Medications: Home Medications Medication Instructions Recorded Confirmed Risperdal Consta 1 syringe IM Q2W 05/21/21 05/21/21 benztropine 1 tab PO BID 05/21/21 05/21/21 risperidone 2 mg PO BID 05/21/21 05/21/21 Previous Rx's Medication Instructions Recorded haloperidol 5 mg PO BID 30 Days #60 tab 05/29/21 Discharge Plan Discharge Patient Disposition: Home, Self-Care Discharge Diagnosis: Schizophrenia, Paranoid Type Referrals: Dr. Bowen (psychiatrist) [Other] - 06/02/21 11:20 am (Telehealth appointment) Myesha Hill (therapist) [Other] (Voicemail left requesting appointment, she will call you to schedule) [place] [Primary Care Provider] - 1 Week Discharge Medications: New haloperidol 5 mg Tablet 5 mg PO BID 30 Days Qty: 60 RF: 0 Continued benztropine 1 mg tablet 1 tab PO BID RF: 0 Risperdal Consta 50 mg/2 mL suspension,extended rel recon 1 syringe IM Q2W RF: 0 risperidone 2 mg tablet 2 mg PO BID RF: 0 Diet: advance to usual diet Activity on Discharge: As tolerated Stand Alone Forms: Patient Portal Discharge page Care Plan Goals: maintain independent living Health Concerns: none Plan of Treatment: continue to take medications as prescribed and attend mental health appointments as scheduled Assessment: safe and stable for discharge Discharge Date/Time: 05/29/21 14:55 Mental Status Exam Mental Status Exam Narrative: pt found walking the presley. appropriately dressed and groomed. cooperative with interview; excessive eye contact and decreased blink. speech incr in amount, nml in rate. soft and flattened in prosody. nml latency. thoughts continue somewhat disorganized; on being asked about his mood went on another tangential monologue, as he did yesterday. does not express any overt delusions, does appear anxious and hesitant in his responses despite informing MD he feels fine and is experiencing no psychotic Sx. affect flexible but anxious appearing, tense, non-labile. mood happy. denies SI/AVH. Data Data Completed and Pending Completed studies during hospitalization [Text1]: 05/23/21 05/23/21 05/23/21 06:50 06:51 06:51 POC Glucose Estimat Average Glucose 103 Hemoglobin A1c % 5.2 Triglycerides 93 Cholesterol 176 LDL Cholesterol, Calc 122 HDL Cholesterol 36 Vitamin B12 196 L Folate 5.3 TSH 0.58 05/26/21 07:46 POC Glucose 96 Estimat Average Glucose Hemoglobin A1c % Triglycerides Cholesterol LDL Cholesterol, Calc HDL Cholesterol Vitamin B12 Folate TSH DS: Summary Hospital Course Hospital Course: per 05/23 Yahir H&P: Mr. Orozco is a 30 year-old male with hx of schizophrenia who was brought to [facility] ED after mother called 911 due to pt endorsing suicidal ideation with plan to jump out of window. Pt also reported several delusional content including thinking that he has a daughter that he has never met and voices telling him that many bad things will happen to him. In the ED his utox was negative. On the unit, pt continues to endorse depressed mood, suicidal ideation prompted by increase paranoid delusions thinking that he will soon as voices are telling him and that he has a daughter. He reports taking medications as prescribed. He reports fair sleep/appetite. He also reports thinking that neighbors were talking about him and could hear his conversations with his family. He reports not feeling safe anywhere. He currently denies any plan or intent to hurt himself. Medical Evaluation Reviewed: Yes Inpatient: 02/2021 at [facility], multiple other admissions. OP: YUSUF Singh Past trials: risperiodne Suicide attempts: none per 05/24 Yahir Progress Note: Pt continues to present as hypervigilant, not feeling safe in the unit thinking that he will soon. He continues to hear voices telling him that he will . He denies SI/HI. He denies any plan or intent to hurt himself. He is open to medications- adding haldol and ativan. per 05/25 Jeyson Progress Note: pt is very disorganized and it is difficult to follow his narrative. the only consistent message he communicates is that he would like to discharge from the hospital sooner rather than later. he talks at some length about the TV's being too loud and overhearing people talking when MD asks about AH. he also spends a fair amount of time discoursing on his behaviors in pursuit of the opposite sex, and his frustrations in that department as well. states he is no longer mad at his neighbor and is safe to go home and act normal. 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 he denies SI but does say he is concerned that others may attack him and he is fully prepared to defend himself should that occur. denies AVH but says, but i hear the TV or the nurses talking. or they talk in a low voice if they want to say a secret. he feels the medications he takes help with his voices and decreases the phenomenon he experiences of people throwing their voices, such as making it appear their voice is coming from the bathroom when they are not in the bathroom. he is content with his medications regimen and has no other requests or complaints. MD suggests he could use a bit more time in the hospital to allow the medications to get his thoughts more organized and settled. per 05/26 Jeyson Progress Note: pt reports he slept well last evening, feels comfortable on the unit and around other people today. denies SI or HI. feeling calm, says he can be at home around his neighbors. he is not sure if they were targeting him, but he no longer has any urges to get back at them and just wants to stay in his room and watch TV and play video games. per staff, pt has been active and appropriate, however isolative. showered. AH improved. watching TV in a separate area from everyone else. per 05/27 Jeyson Progress Note: pt reports he slept well last evening, feels comfortable on the unit and around other people today. somewhat slow to respond to some questions about his paranoia and AH, not convincing in his denials of them. pt remains hopeful of discharge by tuesday. he has no other complaints or requests for MD. per staff, pt has been active and appropriate on the unit. visible in the milieu, c/o anxiety, odd affect. calm and pleasant. attending groups. per collateral from his mother, he has been telling her he continues to hear voices and thinks people are out to get him. she believes he is not at his baseline. per 05/28 Jeyson Progress Note: pt reports he slept well last evening, feels comfortable on the unit and around other people today. excessive eye contact and somewhat anxious affect appearing forced or put-on. pt reports he is keeping himself busy with groups, painting, and TV; remains hopeful of discharge tomorrow. he has no other complaints or requests for MD. per staff, pt has been active and cooperative on the unit. visible in the milieu, odd affect possibly RIS and laughing at odd moments. attending groups. 05/29: pt reports he is feeling well today and ready for discharge. per collateral from pt's mother she feels pt is suitable to be discharged to her care today as well. pt reports he is in a happy mood and denies SI/HI/AVH. on being asked his feelings about the neighbors toward whom he had been feeling antagonistic, he replied let them be. per staff report, pt attending groups, pleasant with staff and peers. calm and cooperative. Status at Discharge Functional status at discharge: independent ambulation Overall status at discharge: patient is progressing back to baseline Time Spent with Patient Time attestation: Total time spent providing and/or coordinating discharge services: Time spent: Greater than 30 minutes
--- NOTE | 2021-05-29 15:05 | PC.NURSE ---
Pt is awake and alert throughout the shift, pt offers no specific complaints. Pt denies SI/HI, denies any A/V/H. Pt is excited for discharge, but continues to engage in groups during the morning. Pt left with his grandfather and all belongings.
== END 2021-05-29 14:55 | disposition home or self-care (01) | DRG 885 ==
LOC: HO.ED 05-22 09:16 → HO.PADLT16 05-22 20:53
PROVIDERS: Nurse Practitioner Primary Care; Physician Assistant Medical; Admitting Provider Social Worker; Emergency Provider Emergency Medicine; Visit Provider Psychiatry & Neurology Psychiatry
DX: F20.9 Schizophrenia, unspecified (principal); R45.851 Suicidal ideations; F17.210 Nicotine dependence, cigarettes, uncomplicated; Z71.6 Tobacco abuse counseling; Z20.822 Contact with and (suspected) exposure to COVID-19; Z79.899 Other long term (current) drug therapy
CPT/HCPCS: 36415; 80053; 80061; 80307; 82607; 82746; 82947; 83036; 83735; 84443; 85025; 85610; 87635; 93005; 99285

== ENCOUNTER 2021-06-02 21:47 | Inpatient (IN) | payer OTHER, SELFPAY ==
[2021-06-02 21:50] VITALS: BP 119/76; PULSE 95; RESP 18; TEMP 37; O2SAT 98; BMI 27.0
--- NOTE | 2021-06-02 21:55 | PC.NURSE ---
brother states patient was discharged from on tuesday.
[2021-06-02 22:40] LABS: COVID-19 Test Negative (Negative)
--- NOTE | 2021-06-02 22:51 | ED_ITS ---
HPI - Psych General Chief Complaint: Psychiatric Symptoms Stated Complaint: med reaction Source: patient Mode of arrival: ambulatory Limitations: altered mental status History of Present Illness HPI Narrative: 30-year-old male presents for psychosis After smoking marijuana. Has had several days of auditory and visual hallucinations, and was brought into the emergency department by his mother. Does report suicidal ideation, and states that his auditory visual hallucinations are asking him to stab people that are having sex with his girlfriend. MD complaint: suicidal ideation, altered mental status, homicidal ideation, substance abuse and hallucinations Onset (ago): unknown Duration: getting worse History of same: Yes Exacerbating factors: drug use Context: recent drug abuse Associated psychiatric symptoms: depression, suicidal ideation, homicidal ideation, racing thoughts, auditory hallucinations, visual hallucinations and delusions Associated symptoms: denies other symptoms Treatments prior to arrival: none If self harm: admits thoughts of self harm Related Data Home Medications Medication Instructions Recorded Confirmed Risperdal Consta 1 syringe IM Q2W 05/21/21 06/02/21 benztropine 1 tab PO BID 05/21/21 06/02/21 risperidone 2 mg PO BID 05/21/21 06/02/21 Previous Rx's Medication Instructions Recorded haloperidol 5 mg PO BID 30 Days #60 tab 05/29/21 Allergies Allergy/AdvReac Type Severity Reaction Status Date / Time No Known Allergies Allergy Verified 06/02/21 21:49 [No Known Allergies*] Review of Systems Review of Systems: Constitutional: No Fever, No Chills ENT/Mouth: No Ear Pain, No Nasal Congestion, No sore throat Eyes: No Eye Pain, No Swelling, No Redness Cardiovascular: No Chest Pain, No SOB Respiratory: No Cough, No Sputum, No Dyspnea Gastrointestinal: No Nausea, No Vomiting, No Diarrhea, No Hematochezia, No Melena Genitourinary: No Dysuria, No Urinary Frequency, No Hematuria Musculoskeletal: No Myalgias Skin: No Skin Lesions, No rash Neuro: No Weakness, No Numbness, No Paresthesias, No Dizziness, No Headache Psych: positive Anxiety, positive Depression, positive SI And HI, positive substance use Heme/Lymph: No Lymphadenopathy Endocrine: No Polyuria, No Polydipsia Yes all other systems are reviewed and are negative [facility] Past Medical History Attestation statement: The following information was validated with the patient. Source: old records reviewed Medical History Schizoaffective disorder Social History Social History Household Members: Family Housing: Apartment Do you presently have visiting nurse or other home services: No Patient Tobacco Use Status: Current everyday Tobacco user Tobacco use type: Cigarette Cigarettes Per Day: 10 e-Cigarette/Vaping Use: Never Used Second Hand Smoke Exposure: No Advance Directives: No Advance Directives Information Provided: Yes service: No Sexual orientation: Decline to Answer Physical Exam Vital Signs: Vital Signs: Last Vital Signs Temp 98.6 F 06/02/21 21:50 Pulse 95 06/02/21 21:50 Resp 18 06/02/21 21:50 BP 119/76 06/02/21 21:50 Pulse Ox 98 06/02/21 21:50 Body Mass Index 27.0 Appearance: Alert. Oriented X3. severe psychological distress. Eyes: Pupils equal, round and reactive to light. ENT: Pharynx normal. Neck: Normal inspection. Neck supple. CVS: Normal heart rate and rhythm. Pulses normal. Respiratory: No respiratory distress. Breath sounds normal. Abdomen: Soft and nontender. Skin: Skin warm and dry. Normal skin color. Normal skin turgor. Extremities: No lower extremity edema. moves all extremities against resistance. Neuro: No motor deficit. No sensory deficit. Cranial nerves 2-12 intact. Course Course Course Narrative: 30-year-old male presents with auditory visual hallucinations, suicidal ideation and homicidal ideation. He has been smoking marijuana, lives with his mother and has been taking his medications as directed. Patient is not forthcoming with information, answers questions slowly with pressured answers. Will order labs, BHN consult, and psych consult. patient is section 12. MDM - Psych Differential Diagnosis Differential diagnosis: Likely acute psychosis, homicidal ideation, suicidal ideation, bipolar disorder, depression, drug-induced psychotic disorder, acute anxiety, post-traumatic stress disorder, substance abuse, mood disorder and schizoaffective disorder Medical Records Attestation: I reviewed the patient's medical records. Lab Data Attestation: I reviewed the patient's lab results. Labs: Lab Results 06/02/21 06/02/21 Range/Units 22:18 22:18 Urine Opiates Screen Not Detected (Not Detect) Ur Barbiturates Screen Not Detected (Not Detect) Ur Phencyclidine Scrn Not Detected (Not Detect) Ur Amphetamines Screen Not Detected (Not Detect) U Benzodiazepines Scrn Not Detected (Not Detect) Urine Cocaine Screen Not Detected (Not Detect) U Marijuana (THC) Screen Not Detected (Not Detect) COVID-19 (EITAN) Negative (Negative) COVID-19 Clin Com See Note Discharge Plan Discharge Clinical Impression: Acute psychosis, Suicidal ideation, Bipolar disorder, Drug-induced psychotic disorder Prescriptions: No Action benztropine 1 mg tablet 1 tab PO BID RF: 0 Risperdal Consta 50 mg/2 mL suspension,extended rel recon 1 syringe IM Q2W RF: 0 risperidone 2 mg tablet 2 mg PO BID RF: 0 haloperidol 5 mg Tablet 5 mg PO BID 30 Days Qty: 60 RF: 0
[2021-06-02 22:56] LABS: Amphetamine Screen Urine Not Detected (Not Detect); Barbiturates, Urine Not Detected (Not Detect); Benzodiazepines Screen Urine Not Detected (Not Detect); Cannabinoid Screen Urine Not Detected (Not Detect); Cocaine Screen Urine Not Detected (Not Detect); Opiate Screen Urine Not Detected (Not Detect); Phencyclidine Screen Urine Not Detected (Not Detect)
[2021-06-02] MEDS: LORazepam 1 MG TABLET 2 MG PO (23:01)
--- NOTE | 2021-06-03 06:12 | PC.NURSE ---
Patient slept through the night, no distress observed/reported, no behavioral issues and concerns, VSS, compliant with medication, patient continues delusional and at time psychotic, N referral completed via smart-sheet, N called and spoke with [facility] adult specialist, confirmed receipt of referral, patient will be seen by N in the morning, psych consult was ordered by provider, will continue to monitor.
[2021-06-03 06:22] VITALS: BP 104/55; PULSE 75; RESP 16; TEMP 36.6; O2SAT 99
--- NOTE | 2021-06-03 07:08 | PC.NURSE ---
patient appears to remain at rest at present with even unlabored breaths, patient appears in no distress
--- NOTE | 2021-06-03 12:07 | ECG_ITS ---
Test Reason : MEDICAL CLEARANCE Blood Pressure : / mmHG Vent. Rate : 080 BPM Atrial Rate : 080 BPM P-R Int : 126 ms QRS Dur : 080 ms QT Int : 380 ms P-R-T Axes : 058 072 054 degrees QTc Int : 438 ms Normal sinus rhythm Possible Left atrial enlargement Borderline ECG When compared with ECG of 22-MAY-2021 09:03, No significant change was found Referred By: Javon Hazel Electronically Signed By:MEDINA JJ
--- NOTE | 2021-06-03 18:23 | PC.NURSE ---
Pt has been calm and resting since this RN arrival at 1500. Calmly asks for food etc and is aware of plan for admission to [facility].
[2021-06-03 18:47] LABS: MANUAL DIFF FLAG NO
[2021-06-03 18:49] LABS: Basophils Percent Auto 0.4 % (0-2); Eosinophils Absolute Auto 0.4 X10*3/uL (0.0-0.4); Eosinophils Percent Auto 4.4 % (0-4); Hematocrit 39.5 % (42-52); Hemoglobin 13.6 g/dl (14.0-18.0); Imm Gran Abs Auto 0.02 X10*3/uL (0.00-0.03); Imm Gran Pct Auto 0.2 % (0.0-0.4); Lymphocytes Absolute Auto 3.1 X10*3/uL (1.2-4.9); Lymphocytes Percent Auto 30.6 % (20-40); Mean Corpuscular HGB Conc 34.4 g/dl (31.0-36.0); Mean Corpuscular Hemoglobin 31.3 pg (27.0-33.0); Mean Platelet Volume 10.3 fL (9.4-12.4); Monocytes Absolute Auto 0.9 X10*3/uL (0.1-1.2); Monocytes Percent Auto 9.3 % (2-11); Neutrophils Absolute Auto 5.5 X10*3/uL (2.0-8.3); Neutrophils Percent Auto 55.1 % (45-73); Platelet Count 204 X10*3/uL (160-400); Red Blood Count 4.34 X10*6/uL (4.60-5.80); Red Cell Distribution Width 12.1 % (11.0-16.0)
[2021-06-03 19:13] LABS: Alanine Aminotransferase 33 U/L (0-40); Albumin Level 4.2 g/dL (3.5-5.0); Alkaline Phosphatase 82 U/L (39-117); Anion Gap 14 (12-20); Aspartate Amino Transferase 17 U/L (5-37); Bilirubin Total 0.2 mg/dL (0.0-1.0); Blood Urea Nitrogen 9 mg/dL (9-16); Calcium 9.1 mg/dL (8.4-10.2); Carbon Dioxide 23 mmol/L (22-29); Chloride 106 mmol/L (96-108); Creatinine Clr Calc Pharmacy 98.5; Estimated Glomerular Filt Rate > 60; Glucose Random 128 mg/dL (60-115); Sodium 139 mmol/L (135-145); Total Protein 6.4 g/dL (6.5-8.0)
[2021-06-03] MEDS: hydrOXYzine HCL 25 MG TABLET PO (20:52)
[2021-06-03] MEDS: Benztropine Mesylate 1 MG TABLET PO (22:27)
[2021-06-03] MEDS: risperiDONE 2 MG TABLET PO (22:28)
[2021-06-03] MEDS: HaloperidoL 5 MG TABLET PO (22:28)
--- NOTE | 2021-06-03 22:32 | PC.ADMIT ---
Addendum entered by Dee Bernabe RN 06/03/21 22:55: PT. DENIED CURRENT SI, SH, HI THOUGHTS. HE AGREED TO SEEK STAFF IF ANY UNSAFE THOUGHTS WILL ARISE Original Note: PT. IS A 30 YEAR OLD SPANISH SPEAKING MALE WHO PRESENTS FROM [facility] ED AT APPROX. 20:45 ON A CV STATUS. PT. IS COVID NEG, UTOX POS. FOR MARIJUANA. PT. REPORTED HE WAS AT [facility] ABOUT 10 YEARS AGO. PT. WAS ASSESSED BY [facility], AFTER HE REPORTED COMMAND AH/ TO STAB ANYONE THAT IS TRYING TO HAVE SEX WITH HIS GIRLFRIEND. THIS WAS ALSO REPORTED BY PT. DURING THE ADMISSION ASSESSMENT. PT. STATED THAT VOICES ARE TELLING HIM TO PROTECT HIS GIRLFRIEND. PT. ENDORSES SI, PRESENTS WITH PSYCHOSIS AFTER SMOKING MARIJUANA. PT. WAS COOPERATIVE DURING ADMISSION, AFFECT AT TIMES BIZARRE DUE TO INTENSE EYE CONTACT. WHEN ASK ABOUT CURRENT WOUNDS/SKIN INTEGRITY HE POINTED TO OLD SCARS FROM [employer] 10 YEARS AGO. PT. IS A SMOKER, NICOTINE REPLACEMENT WAS ORDERED, PT. WAS HS MED. COMPLIANT, HE IS ON 15 MIN. SAFETY CHECKS, HE WAS UNIT ORIENTED, WHEN ASK IF HE WOULD LIKE A SNACK HE STATED i JUST WANT TO SLEEP .
[2021-06-04 07:00] VITALS: BMI 26.9
[2021-06-04] MEDS: HaloperidoL 5 MG TABLET PO ×2 (08:24→20:10)
[2021-06-04] MEDS: Nicotine 14 MG PATCH.TD24 TRANSDERMA (08:25)
[2021-06-04] MEDS: Benztropine Mesylate 1 MG TABLET PO ×2 (08:25→20:10)
[2021-06-04] MEDS: risperiDONE 2 MG TABLET PO ×2 (08:25→20:10)
[2021-06-04 09:49] VITALS: BP 107/55; PULSE 89; RESP 16; TEMP 36.2; O2SAT 98
--- NOTE | 2021-06-04 13:49 | P.HPPS_ITS ---
HPI Chief Complaint: Psychosis Sources of Information: patient interviewed, chart reviewed and crisis/core team assessment reviewed HPI Subjective Notes: Conditional Voluntary Narrative: Mr. Orozco is a 30 year-old male with hx of schizophrenia who was recently discharged from on 05/04/2021 after being treated for increased delusions, AH and SI with plan to jump off window. He was started on Haldol 5mg po BID, in addition to risperidone consta. This time Mr. Orozco self presented to [facility] reporting increase CAH, HI towards anyone who talks with GF. He re ported having muscle stiffness with medications right after discharge. In the ED, his utox was negative. On the unit, pt appears guarded, minimally providing detail related to events leading to re-hospitalization. He reports hearing voices, not feeling safe at home. He continues to believe he has a daughter with a woman he has never met. He denies SI in the unit, but also appears not fully forthcoming. He responds I don't know to most other questions related to his mood and situation at home that could have triggered him. He reports sleep and appetite are okay. Unclear if at home taking medications as prescribed. Past Psychiatric History: Inpatient: multiple in past, most recent one 05/04/2021 OP: NATALIYA Duckworth Past medication trials: risperidone consta, haldol Medical Evaluation Reviewed: Yes [facility] Medical History Schizoaffective disorder Family History: none Social History: lives with parents. No children. 2 brothers and one sister. Substance History: past hx of cannabis, tamia dust. no current Trauma History: denies Diagnostics Vital Signs (24Hr): Vital Signs - 24 hr 06/04/21 09:49 Temperature 97.2 F Pulse Rate 89 Respiratory Rate 16 Blood Pressure 107/55 L Pulse Oximetry 98 Body Mass Index 26.9 Labs Results: 06/03/21 18:44 06/03/21 18:44 Labs: Laboratory Results - last 48 hr 06/02/21 06/02/21 06/03/21 22:18 22:18 18:44 WBC 10.0 RBC 4.34 L Hgb 13.6 L Hct 39.5 L MCV 91.0 MCH 31.3 MCHC 34.4 RDW 12.1 Plt Count 204 MPV 10.3 Immature Gran % (Auto) 0.2 Neut % (Auto) 55.1 Lymph % (Auto) 30.6 [place] % (Auto) 9.3 Eos % (Auto) 4.4 H Baso % (Auto) 0.4 Lymph # (Auto) 3.1 [place] # (Auto) 0.9 Eos # (Auto) 0.4 Baso # (Auto) 0.0 Abs Immat Gran (auto) 0.02 Absolute Neuts (auto) 5.5 Absolute Nucleated RBC 0.000 Nucleated RBC % (auto) 0.0 Sodium Potassium Chloride Carbon Dioxide Anion Gap BUN Creatinine Estim Creat Clear Calc Estimated GFR Random Glucose Calcium Total Bilirubin AST ALT Alkaline Phosphatase Total Protein Albumin Urine Opiates Screen Not Detected Ur Barbiturates Screen Not Detected Ur Phencyclidine Scrn Not Detected Ur Amphetamines Screen Not Detected U Benzodiazepines Scrn Not Detected Urine Cocaine Screen Not Detected U Marijuana (THC) Screen Not Detected COVID-19 (EITAN) Negative COVID-19 [employer] Com See Note 06/03/21 18:44 WBC RBC Hgb Hct MCV MCH MCHC RDW Plt Count MPV Immature Gran % (Auto) Neut % (Auto) Lymph % (Auto) [place] % (Auto) Eos % (Auto) Baso % (Auto) Lymph # (Auto) [place] # (Auto) Eos # (Auto) Baso # (Auto) Abs Immat Gran (auto) Absolute Neuts (auto) Absolute Nucleated RBC Nucleated RBC % (auto) Sodium 139 Potassium 4.0 Chloride 106 Carbon Dioxide 23 Anion Gap 14 BUN 9 Creatinine 1.06 Estim Creat Clear Calc 98.5 Estimated GFR > 60 Random Glucose 128 H D Calcium 9.1 Total Bilirubin 0.2 AST 17 ALT 33 Alkaline Phosphatase 82 Total Protein 6.4 L Albumin 4.2 Urine Opiates Screen Ur Barbiturates Screen Ur Phencyclidine Scrn Ur Amphetamines Screen U Benzodiazepines Scrn Urine Cocaine Screen U Marijuana (THC) Screen COVID-19 (EITAN) COVID-19 Clin Com Meds/Allergies Meds Home Medications Acetaminophen (Acetaminophen 325 Mg Tablet) 650 mg PO Q6H PRN PRN Reason: Headache/Pain Mild Scale (1-3) Al Hydroxide/Mg Hydroxide (Magnesium Hydrox/Alum Hydrox 30 Ml Oral.Susp) 30 ml PO Q6H PRN PRN Reason: Heartburn/Nausea Benztropine Mesylate (Benztropine Mesylate 1 Mg Tablet) 1 mg PO BID [facility] Last Admin: 06/04/21 08:25 Dose: 1 mg Documented by: Haloperidol (Haloperidol 5 Mg Tablet) 5 mg PO BID [facility] Last Admin: 06/04/21 08:24 Dose: 5 mg Documented by: Hydroxyzine HCl (Hydroxyzine Hcl 25 Mg Tablet) 25 mg PO BEDTIME PRN PRN Reason: Anxiety Last Admin: 06/03/21 20:52 Dose: 25 mg Documented by: Magnesium Hydroxide (Milk Of Magnesia 30 Ml Oral.Susp) 30 ml PO DAILY PRN PRN Reason: Constipation Nicotine (Nicotine 14 Mg Patch.Td24) 14 mg TRANSDERMA DAILY [facility] Last Admin: 06/04/21 08:25 Dose: 14 mg Documented by: Nicotine Polacrilex (Nicotine Polacrilex 2 Mg Gum) 4 mg BUCCAL Q2H PRN PRN Reason: Nicotine Cravings Risperidone (Risperidone 2 Mg Tablet) 2 mg PO BID [facility] Last Admin: 06/04/21 08:25 Dose: 2 mg Documented by: Trazodone HCl (Trazodone Hcl 50 Mg Tablet) 50 mg PO BEDTIME PRN PRN Reason: Insomnia Allergies Allergies Allergy/AdvReac Type Severity Reaction Status Date / Time No Known Allergies Allergy Verified 06/02/21 21:49 [No Known Allergies*] Mental Status Exam Mental Status Exam Narrative: Appearance: casually groomed, fair hygiene, in NAD Behavior: calm, cooperative Psychomotor: no agitation or retardation noted Speech: clear, normal rate/rhythm/volume, spontaneous TP: tangential TC: paranoid/persecutory delusions of neighbors hearing conversations and someone trying to hurt him Mood: anxious Affect:congruent, constricted SI:denies HI:denies AH/VH:AH telling him that he will soon Delusions:paranoid/persecutory delusions Insight/judgment:poor x 2. Memory/cog: alert, oriented x 3. impaired secondary to psychiatric problems. Assessment & Plan Assessment & Plan (1) Schizophrenia, paranoid, chronic with acute exacerbation: Status: Acute Code(s): F20.0 - Paranoid schizophrenia Assessment and Plan: 1. continue current medications- risperidone and haldol 2. obtain collateral information 3. Coordinate care-aftercare planning. Reason for continued inpatient stay Substantial Risk for: harm to self and inability to function
[2021-06-04 16:19] VITALS: BP 125/59; PULSE 72; RESP 18; TEMP 36.3; O2SAT 99
[2021-06-04] MEDS: Nicotine Polacrilex 2 MG GUM 4 MG BUCCAL ×2 (16:32→20:09)
[2021-06-05 06:00] VITALS: BP 103/58; PULSE 67; RESP 16; TEMP 36.8; O2SAT 97
[2021-06-05] MEDS: Benztropine Mesylate 1 MG TABLET PO ×2 (08:04→20:09)
[2021-06-05] MEDS: Nicotine 14 MG PATCH.TD24 TRANSDERMA (08:04)
[2021-06-05] MEDS: HaloperidoL 5 MG TABLET PO ×2 (08:04→20:08)
[2021-06-05] MEDS: risperiDONE 2 MG TABLET PO ×2 (08:04→20:08)
[2021-06-05 09:25] LABS: Folate 4.7 ng/mL (> or = 4.0); Vitamin B12 190 pg/mL (200-900)
[2021-06-05] MEDS: Nicotine Polacrilex 2 MG GUM 4 MG BUCCAL ×2 (16:17→20:08)
--- NOTE | 2021-06-05 16:18 | HO.PSYCHPN ---
Subjective Subjective Date of Service: 06/05/21 Reason For Visit: Psychosis Subjective Notes: Conditional Voluntary Interim History: Pt presents with brighter affect although intense eye contact. He reports he feels better in that he is less anxious. He denies hearing voices but appears internally preoccupied at times. He denies SI/HI. He continues to report having telepathic relationship with women and thinks he had daughter with someone he has never met. He has been more visible in the unit. Taking medications as prescribed. NO cogwheel noted on exam. Mild involuntary tongue movement noted. Review of Systems Review of Systems Constitutional: No Fever, No Chills ENT/Mouth: No Ear Pain, No Nasal Congestion, No sore throat Eyes: No Eye Pain, No Swelling, No Redness Cardiovascular: No Chest Pain, No SOB Respiratory: No Cough, No Sputum, No Dyspnea Gastrointestinal: No Nausea, No Vomiting, No Diarrhea, No Hematochezia, No Melena Genitourinary: No Dysuria, No Urinary Frequency, No Hematuria Musculoskeletal: No Myalgias Skin: No Skin Lesions, No rash Neuro: No Weakness, No Numbness, No Paresthesias, No Dizziness, No Headache Psych: positive Anxiety, positive Depression, positive SI And HI, positive substance use Heme/Lymph: No Lymphadenopathy Endocrine: No Polyuria, No Polydipsia Yes all other systems are reviewed and are negative Mental Status Exam Mental Status Exam Narrative: Appearance: casually groomed, fair hygiene, in NAD Behavior: calm, cooperative Psychomotor: no agitation or retardation noted Speech: clear, normal rate/rhythm/volume, spontaneous TP: tangential TC: paranoid/persecutory delusions of neighbors hearing conversations and someone trying to hurt him Mood: anxious Affect:congruent, constricted SI:denies HI:denies AH/VH:AH telling him that he will soon Delusions:paranoid/persecutory delusions Insight/judgment:poor x 2. Memory/cog: alert, oriented x 3. impaired secondary to psychiatric problems. Diagnostics Vital Signs (24Hr): Vital Signs - 24 hr 06/04/21 16:19 06/05/21 06:00 Temperature 97.3 F 98.3 F Pulse Rate 72 67 Respiratory Rate 18 16 Blood Pressure 125/59 L 103/58 L Pulse Oximetry 99 97 Body Mass Index 26.9 Labs Results: 06/03/21 18:44 06/03/21 18:44 Labs: Laboratory Results - last 48 hr 06/03/21 06/03/21 06/05/21 18:44 18:44 08:03 WBC 10.0 RBC 4.34 L Hgb 13.6 L Hct 39.5 L MCV 91.0 MCH 31.3 MCHC 34.4 RDW 12.1 Plt Count 204 MPV 10.3 Immature Gran % (Auto) 0.2 Neut % (Auto) 55.1 Lymph % (Auto) 30.6 [place] % (Auto) 9.3 Eos % (Auto) 4.4 H Baso % (Auto) 0.4 Lymph # (Auto) 3.1 [place] # (Auto) 0.9 Eos # (Auto) 0.4 Baso # (Auto) 0.0 Abs Immat Gran (auto) 0.02 Absolute Neuts (auto) 5.5 Absolute Nucleated RBC 0.000 Nucleated RBC % (auto) 0.0 Sodium 139 Potassium 4.0 Chloride 106 Carbon Dioxide 23 Anion Gap 14 BUN 9 Creatinine 1.06 Estim Creat Clear Calc 98.5 Estimated GFR > 60 Random Glucose 128 H D Calcium 9.1 Total Bilirubin 0.2 AST 17 ALT 33 Alkaline Phosphatase 82 Total Protein 6.4 L Albumin 4.2 Vitamin B12 190 L Folate 4.7 Medications Medications Current Medications Generic Name Dose Route Start Last Admin Trade Name Vidalq PRN Reason Stop Dose Admin Acetaminophen 650 mg 06/03/21 19:53 Acetaminophen 325 Mg Tablet PO Q6H PRN Headache/Pain Mild Scale (1-3) Al Hydroxide/Mg Hydroxide 30 ml 06/03/21 19:53 Magnesium Hydrox/Alum Hydrox 30 Ml Oral.Susp PO Q6H PRN Heartburn/Nausea Benztropine Mesylate 1 mg 06/03/21 21:00 06/05/21 08:04 Benztropine Mesylate 1 Mg Tablet PO 1 mg BID GRACE Administration Cyanocobalamin 1,000 mcg 06/06/21 09:00 Cyanocobalamin (Vitamin B-12) 1,000 Mcg Tablet PO DAILY GRACE Haloperidol 5 mg 06/03/21 21:00 06/05/21 08:04 Haloperidol 5 Mg Tablet PO 5 mg BID GRACE Administration Hydroxyzine HCl 25 mg 06/03/21 19:53 06/03/21 20:52 Hydroxyzine Hcl 25 Mg Tablet PO 25 mg BEDTIME PRN Administration Anxiety Magnesium Hydroxide 30 ml 06/03/21 19:53 Milk Of Magnesia 30 Ml Oral.Susp PO DAILY PRN Constipation Nicotine 14 mg 06/04/21 09:00 06/05/21 08:04 Nicotine 14 Mg Patch.Td24 TRANSDERMA 14 mg DAILY GRACE Administration Nicotine Polacrilex 4 mg 06/03/21 19:53 06/05/21 16:17 Nicotine Polacrilex 2 Mg Gum BUCCAL 4 mg Q2H PRN Administration Nicotine Cravings Risperidone 2 mg 06/03/21 21:00 06/05/21 08:04 Risperidone 2 Mg Tablet PO 2 mg BID GRACE Administration Trazodone HCl 50 mg 06/03/21 19:53 Trazodone Hcl 50 Mg Tablet PO BEDTIME PRN Insomnia Allergies Allergies Allergy/AdvReac Type Severity Reaction Status Date / Time No Known Allergies Allergy Verified 06/02/21 21:49 [No Known Allergies*] Assessment & Plan Assessment & Plan (1) Schizophrenia, paranoid, chronic with acute exacerbation: Status: Acute Code(s): F20.0 - Paranoid schizophrenia Assessment and Plan: 1. continue current medications- risperidone and haldol 2. obtain collateral information 3. Coordinate care-aftercare planning. Greater than 50% of the session was spent on counseling and/or coordination of care Reason for contiued inpatient stay Substantial Risk for: inability to function
[2021-06-05 18:00] VITALS: BP 107/55; PULSE 78; TEMP 36.4
[2021-06-06 06:00] VITALS: BP 91/50; PULSE 71; RESP 14; TEMP 36.9; O2SAT 99
[2021-06-06] MEDS: risperiDONE 2 MG TABLET PO ×2 (08:31→20:26)
[2021-06-06] MEDS: Nicotine 14 MG PATCH.TD24 TRANSDERMA (08:31)
[2021-06-06] MEDS: HaloperidoL 5 MG TABLET PO ×2 (08:31→20:26)
[2021-06-06] MEDS: Benztropine Mesylate 1 MG TABLET PO ×2 (08:31→20:25)
[2021-06-06] MEDS: Cyanocobalamin (Vitamin B-12) 1,000 MCG TABLET 1000 MCG PO (08:31)
--- NOTE | 2021-06-06 09:40 | HO.PSYCHPN ---
Subjective Subjective Date of Service: 06/06/21 Reason For Visit: Psychosis Interim History: Patient seen, chart reviewed, case discussed with nursing staff Patient reports that his mood is ?good? and describes how he can tell by saying that he got out of bed, showered and went to group. He reports the group was about not sharing medication and that he appreciated it. He denies any AH since being admitted, that it has resolved. He denies SI or hi and reports good sleep period he has no complaints and no requests Medication Compliance: Yes Side effects from medications: No Attending Groups: Yes Mental Status Exam Mental Status Exam Narrative: Appearance: casually groomed, good hygiene, in NAD Behavior: calm, cooperative Psychomotor: no agitation or retardation noted Speech: a little soft but clear, normal rate/rhythm, spontaneous TP: goal directed TC: no paranoid/persecutory delusions expressed; Mood: good Affect:congruent, a little constricted SI:denies HI:denies AH/VH:reports resolved Delusions:recent paranoid/persecutory delusions Insight/judgment:impaired. Memory/cog: alert, oriented x 3. impaired secondary to psychiatric problems. Diagnostics Vital Signs (24Hr): Vital Signs - 24 hr 06/05/21 18:00 06/06/21 06:00 Temperature 97.6 F 98.5 F Pulse Rate 78 71 Respiratory Rate 14 Blood Pressure 107/55 L 91/50 L Pulse Oximetry 99 Body Mass Index 26.9 Labs Results: 06/03/21 18:44 06/03/21 18:44 Labs: Laboratory Results - last 48 hr 06/05/21 08:03 Vitamin B12 190 L Folate 4.7 Medications Medications Current Medications Generic Name Dose Route Start Last Admin Trade Name Freq PRN Reason Stop Dose Admin Acetaminophen 650 mg 06/03/21 19:53 Acetaminophen 325 Mg Tablet PO Q6H PRN Headache/Pain Mild Scale (1-3) Al Hydroxide/Mg Hydroxide 30 ml 06/03/21 19:53 Magnesium Hydrox/Alum Hydrox 30 Ml Oral.Susp PO Q6H PRN Heartburn/Nausea Benztropine Mesylate 1 mg 06/03/21 21:00 06/06/21 08:31 Benztropine Mesylate 1 Mg Tablet PO 1 mg BID GRACE Administration Cyanocobalamin 1,000 mcg 06/06/21 09:00 06/06/21 08:31 Cyanocobalamin (Vitamin B-12) 1,000 Mcg Tablet PO 1,000 mcg DAILY GRACE Administration Haloperidol 5 mg 06/03/21 21:00 06/06/21 08:31 Haloperidol 5 Mg Tablet PO 5 mg BID GRACE Administration Hydroxyzine HCl 25 mg 06/03/21 19:53 06/03/21 20:52 Hydroxyzine Hcl 25 Mg Tablet PO 25 mg BEDTIME PRN Administration Anxiety Magnesium Hydroxide 30 ml 06/03/21 19:53 Milk Of Magnesia 30 Ml Oral.Susp PO DAILY PRN Constipation Nicotine 14 mg 06/04/21 09:00 06/06/21 08:31 Nicotine 14 Mg Patch.Td24 TRANSDERMA 14 mg DAILY GRACE Administration Nicotine Polacrilex 4 mg 06/03/21 19:53 06/05/21 20:08 Nicotine Polacrilex 2 Mg Gum BUCCAL 4 mg Q2H PRN Administration Nicotine Cravings Risperidone 2 mg 06/03/21 21:00 06/06/21 08:31 Risperidone 2 Mg Tablet PO 2 mg BID GRACE Administration Trazodone HCl 50 mg 06/03/21 19:53 Trazodone Hcl 50 Mg Tablet PO BEDTIME PRN Insomnia Allergies Allergies Allergy/AdvReac Type Severity Reaction Status Date / Time No Known Allergies Allergy Verified 06/02/21 21:49 [No Known Allergies*] Assessment & Plan Assessment & Plan (1) Schizophrenia, paranoid, chronic with acute exacerbation: Status: Acute Code(s): F20.0 - Paranoid schizophrenia Assessment and Plan: 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 continue current medications- risperidone and haldol 2. obtain collateral information 3. Coordinate care-aftercare planning. Greater than 50% of the session was spent on counseling and/or coordination of care Reason for contiued inpatient stay Substantial Risk for: rapid decompensation
[2021-06-06 16:56] VITALS: BP 112/69; PULSE 74; RESP 18; TEMP 36.3; O2SAT 99
--- NOTE | 2021-06-06 22:14 | PC.NURSE ---
PT. SIGNED THIS EVENING A 3 DAY NOTICE, UP Tuesday06/10/21
[2021-06-07] MEDS: Cyanocobalamin (Vitamin B-12) 1,000 MCG TABLET 1000 MCG PO (08:50)
[2021-06-07] MEDS: Benztropine Mesylate 1 MG TABLET PO ×2 (08:50→20:23)
[2021-06-07] MEDS: HaloperidoL 5 MG TABLET PO ×2 (08:50→20:13)
[2021-06-07] MEDS: Nicotine 14 MG PATCH.TD24 TRANSDERMA (08:50)
[2021-06-07] MEDS: risperiDONE 2 MG TABLET PO ×2 (08:50→20:13)
[2021-06-07 08:51] VITALS: BP 129/62; PULSE 83; RESP 14; TEMP 36.4; O2SAT 99
[2021-06-07 16:25] VITALS: BP 98/56; PULSE 70; TEMP 36.6
--- NOTE | 2021-06-07 17:09 | P.PNPSI_ITS ---
Subjective Subjective Date of Service: 06/07/21 Reason For Visit: Psychosis Interim History: Patient seen, chart reviewed, case discussed with nursing staff Patient reports that good. he denies any S hi or hi it's going to be also denies a VH. 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 He reports that going to groups is helping that change and it's working. Patient denies side effects from medications Mental Status Exam Mental Status Exam Narrative: Appearance: casually groomed, good hygiene, in NAD Behavior: calm, cooperative Psychomotor: no agitation or retardation noted Speech: a little soft but clear, normal rate/rhythm, spontaneous TP: goal directed TC: denies SI/HI; denies paranoid/persecutory delusions; Mood: good Affect:kind of a fixed smile regardless of conversation SI:denies HI:denies AH/VH:reports resolved Delusions:denies paranoid/persecutory delusions Insight/judgment:improved? . Memory/cog: alert, oriented x 3. impaired secondary to psychiatric problems. Diagnostics Vital Signs (24Hr): Vital Signs - 24 hr 06/07/21 08:51 Temperature 97.5 F Pulse Rate 83 Respiratory Rate 14 Blood Pressure 129/62 Pulse Oximetry 99 Body Mass Index 26.9 Labs Results: 06/03/21 18:44 06/03/21 18:44 Medications Medications Current Medications Generic Name Dose Route Start Last Admin Trade Name Freq PRN Reason Stop Dose Admin Acetaminophen 650 mg 06/03/21 19:53 Acetaminophen 325 Mg Tablet PO Q6H PRN Headache/Pain Mild Scale (1-3) Al Hydroxide/Mg Hydroxide 30 ml 06/03/21 19:53 Magnesium Hydrox/Alum Hydrox 30 Ml Oral.Susp PO Q6H PRN Heartburn/Nausea Benztropine Mesylate 1 mg 06/03/21 21:00 06/07/21 08:50 Benztropine Mesylate 1 Mg Tablet PO 1 mg BID GRACE Administration Cyanocobalamin 1,000 mcg 06/06/21 09:00 06/07/21 08:50 Cyanocobalamin (Vitamin B-12) 1,000 Mcg Tablet PO 1,000 mcg DAILY GRACE Administration Haloperidol 5 mg 06/03/21 21:00 06/07/21 08:50 Haloperidol 5 Mg Tablet PO 5 mg BID GRACE Administration Hydroxyzine HCl 25 mg 06/03/21 19:53 06/03/21 20:52 Hydroxyzine Hcl 25 Mg Tablet PO 25 mg BEDTIME PRN Administration Anxiety Magnesium Hydroxide 30 ml 06/03/21 19:53 Milk Of Magnesia 30 Ml Oral.Susp PO DAILY PRN Constipation Nicotine 14 mg 06/04/21 09:00 06/07/21 08:50 Nicotine 14 Mg Patch.Td24 TRANSDERMA 14 mg DAILY GRACE Administration Nicotine Polacrilex 4 mg 06/03/21 19:53 06/05/21 20:08 Nicotine Polacrilex 2 Mg Gum BUCCAL 4 mg Q2H PRN Administration Nicotine Cravings Risperidone 2 mg 06/03/21 21:00 06/07/21 08:50 Risperidone 2 Mg Tablet PO 2 mg BID GRACE Administration Trazodone HCl 50 mg 06/03/21 19:53 Trazodone Hcl 50 Mg Tablet PO BEDTIME PRN Insomnia Allergies Allergies Allergy/AdvReac Type Severity Reaction Status Date / Time No Known Allergies Allergy Verified 06/02/21 21:49 [No Known Allergies*] Assessment & Plan Assessment & Plan (1) Schizophrenia, paranoid, chronic with acute exacerbation: Status: Acute Code(s): F20.0 - Paranoid schizophrenia 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 continue current medications- risperidone and haldol 2. obtain collateral information 3. Coordinate care-aftercare planning. Greater than 50% of the session was spent on counseling and/or coordination of care Reason for contiued inpatient stay Substantial Risk for: rapid decompensation
[2021-06-07] MEDS: Acetaminophen 325 MG TABLET 650 MG PO (18:52)
[2021-06-07] MEDS: LORazepam 1 MG TABLET PO (18:52)
[2021-06-08 06:39] VITALS: BP 104/54; PULSE 63; RESP 16; TEMP 36.2; O2SAT 96
[2021-06-08] MEDS: risperiDONE 2 MG TABLET PO ×2 (09:04→20:11)
[2021-06-08] MEDS: HaloperidoL 5 MG TABLET PO ×2 (09:04→20:11)
[2021-06-08] MEDS: Cyanocobalamin (Vitamin B-12) 1,000 MCG TABLET 1000 MCG PO (09:04)
[2021-06-08] MEDS: Nicotine 14 MG PATCH.TD24 TRANSDERMA (09:05)
[2021-06-08] MEDS: Benztropine Mesylate 1 MG TABLET PO ×2 (09:11→20:10)
--- NOTE | 2021-06-08 14:13 | P.PNPSI_ITS ---
Subjective Subjective Date of Service: 06/08/21 Reason For Visit: Psychosis Interim History: Patient seen, chart reviewed, case discussed with nursing staff Pt presents with somewhat of an expansive affect, reporting he feels much better I don't have negative thoughts. when asked about which negative thoughts, he reports related to wanting to hurt neighbors as he thought they could hear him. He has been more visible in the unit and has attended some groups. He appears with inappropriate smile. He reports he thinks he has relationship with women telepathically, which in the past has led to him becoming paranoid towards men who he thinks are trying to take women away from him. He also continues to believe he has daughter with woman he has never met. He denies SI/HI. Review of Systems Review of Systems Constitutional: No Fever, No Chills ENT/Mouth: No Ear Pain, No Nasal Congestion, No sore throat Eyes: No Eye Pain, No Swelling, No Redness Cardiovascular: No Chest Pain, No SOB Respiratory: No Cough, No Sputum, No Dyspnea Gastrointestinal: No Nausea, No Vomiting, No Diarrhea, No Hematochezia, No Melena Genitourinary: No Dysuria, No Urinary Frequency, No Hematuria Musculoskeletal: No Myalgias Skin: No Skin Lesions, No rash Neuro: No Weakness, No Numbness, No Paresthesias, No Dizziness, No Headache Psych: positive Anxiety, positive Depression, positive SI And HI, positive substance use Heme/Lymph: No Lymphadenopathy Endocrine: No Polyuria, No Polydipsia Yes all other systems are reviewed and are negative Mental Status Exam Mental Status Exam Narrative: Appearance: casually groomed, good hygiene, in NAD Behavior: calm, cooperative Psychomotor: no agitation or retardation noted Speech: a little soft but clear, normal rate/rhythm, spontaneous TP: goal directed TC: denies SI/HI; denies paranoid/persecutory delusions; Mood: good Affect:somewhat expansive at times SI:denies HI:denies AH/VH:reports resolved but appears internally preoccupied. Delusions:denies paranoid/persecutory delusions Insight/judgment:poor x 2. Memory/cog: alert, oriented x 3. impaired secondary to psychiatric problems. Diagnostics Vital Signs (24Hr): Vital Signs - 24 hr 06/07/21 16:25 06/08/21 06:39 Temperature 97.8 F 97.1 F Pulse Rate 70 63 Respiratory Rate 16 Blood Pressure 98/56 L 104/54 L Pulse Oximetry 96 Body Mass Index 26.9 Labs Results: 06/03/21 18:44 06/03/21 18:44 Medications Medications Current Medications Generic Name Dose Route Start Last Admin Trade Name Freq PRN Reason Stop Dose Admin Acetaminophen 650 mg 06/03/21 19:53 06/07/21 18:52 Acetaminophen 325 Mg Tablet PO 650 mg Q6H PRN Administration Headache/Pain Mild Scale (1-3) Al Hydroxide/Mg Hydroxide 30 ml 06/03/21 19:53 Magnesium Hydrox/Alum Hydrox 30 Ml Oral.Susp PO Q6H PRN Heartburn/Nausea Benztropine Mesylate 1 mg 06/03/21 21:00 06/08/21 09:11 Benztropine Mesylate 1 Mg Tablet PO 1 mg BID GRACE Administration Cyanocobalamin 1,000 mcg 06/06/21 09:00 06/08/21 09:04 Cyanocobalamin (Vitamin B-12) 1,000 Mcg Tablet PO 1,000 mcg DAILY GRACE Administration Haloperidol 5 mg 06/03/21 21:00 06/08/21 09:04 Haloperidol 5 Mg Tablet PO 5 mg BID GRACE Administration Hydroxyzine HCl 25 mg 06/03/21 19:53 06/03/21 20:52 Hydroxyzine Hcl 25 Mg Tablet PO 25 mg BEDTIME PRN Administration Anxiety Magnesium Hydroxide 30 ml 06/03/21 19:53 Milk Of Magnesia 30 Ml Oral.Susp PO DAILY PRN Constipation Nicotine 14 mg 06/04/21 09:00 06/08/21 09:05 Nicotine 14 Mg Patch.Td24 TRANSDERMA 14 mg DAILY GRACE Administration Nicotine Polacrilex 4 mg 06/03/21 19:53 06/05/21 20:08 Nicotine Polacrilex 2 Mg Gum BUCCAL 4 mg Q2H PRN Administration Nicotine Cravings Risperidone 2 mg 06/03/21 21:00 06/08/21 09:04 Risperidone 2 Mg Tablet PO 2 mg BID GRACE Administration Trazodone HCl 50 mg 06/03/21 19:53 Trazodone Hcl 50 Mg Tablet PO BEDTIME PRN Insomnia Allergies Allergies Allergy/AdvReac Type Severity Reaction Status Date / Time No Known Allergies Allergy Verified 06/02/21 21:49 [No Known Allergies*] Assessment & Plan Assessment & Plan (1) Schizophrenia, paranoid, chronic with acute exacerbation: Status: Acute Code(s): F20.0 - Paranoid schizophrenia Assessment and Plan: 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 Duckworth who agrees that lately pt has been presenting with more expansive, sexualize behaviors/delusions. Agreed to start mood stabilizer. 1. continue current medications- risperidone and haldol 2. Start lithium 300mg po BID. 3. Coordinate care-aftercare planning. Greater than 50% of the session was spent on counseling and/or coordination of care Reason for contiued inpatient stay Substantial Risk for: harm to self, harm to others and inability to function
[2021-06-08 19:10] VITALS: BP 129/82; PULSE 86; TEMP 36.6
[2021-06-08] MEDS: Lithium Carbonate 300 MG CAPSULE PO (20:10)
[2021-06-08] MEDS: traZODone HCL 50 MG TABLET PO (22:40)
[2021-06-09 06:00] VITALS: BP 94/52; PULSE 64; RESP 16; TEMP 36; O2SAT 94
[2021-06-09] MEDS: Benztropine Mesylate 1 MG TABLET PO ×2 (08:47→20:11)
[2021-06-09] MEDS: Nicotine 14 MG PATCH.TD24 TRANSDERMA (08:47)
[2021-06-09] MEDS: risperiDONE 2 MG TABLET PO ×2 (08:47→20:11)
[2021-06-09] MEDS: Lithium Carbonate 300 MG CAPSULE PO ×2 (08:47→20:11)
[2021-06-09] MEDS: Cyanocobalamin (Vitamin B-12) 1,000 MCG TABLET 1000 MCG PO (08:47)
[2021-06-09] MEDS: HaloperidoL 5 MG TABLET PO ×2 (08:48→20:11)
--- NOTE | 2021-06-09 11:43 | P.PNPSI_ITS ---
Subjective Subjective Date of Service: 06/10/21 Reason For Visit: Psychosis Interim History: Patient seen, chart reviewed, case discussed with nursing staff Pt presents with somewhat of an expansive affect, reporting he feels much better I don't have negative thoughts. when asked about which negative thoughts, he reports related to wanting to hurt neighbors as he thought they could hear him. He has been more visible in the unit and has attended some groups. He appears with inappropriate smile. He reports he thinks he has relationship with women telepathically, which in the past has led to him becoming paranoid towards men who he thinks are trying to take women away from him. He also continues to believe he has daughter with woman he has never met. He denies SI/HI. Review of Systems Review of Systems Constitutional: No Fever, No Chills ENT/Mouth: No Ear Pain, No Nasal Congestion, No sore throat Eyes: No Eye Pain, No Swelling, No Redness Cardiovascular: No Chest Pain, No SOB Respiratory: No Cough, No Sputum, No Dyspnea Gastrointestinal: No Nausea, No Vomiting, No Diarrhea, No Hematochezia, No Melena Genitourinary: No Dysuria, No Urinary Frequency, No Hematuria Musculoskeletal: No Myalgias Skin: No Skin Lesions, No rash Neuro: No Weakness, No Numbness, No Paresthesias, No Dizziness, No Headache Psych: positive Anxiety, positive Depression, positive SI And HI, positive substance use Heme/Lymph: No Lymphadenopathy Endocrine: No Polyuria, No Polydipsia Yes all other systems are reviewed and are negative Mental Status Exam Mental Status Exam Narrative: Appearance: casually groomed, good hygiene, in NAD Behavior: calm, cooperative Psychomotor: no agitation or retardation noted Speech: a little soft but clear, normal rate/rhythm, spontaneous TP: goal directed TC: denies SI/HI; denies paranoid/persecutory delusions; Mood: good Affect:somewhat expansive at times SI:denies HI:denies AH/VH:reports resolved but appears internally preoccupied. Delusions:denies paranoid/persecutory delusions Insight/judgment:poor x 2. Memory/cog: alert, oriented x 3. impaired secondary to psychiatric problems. Diagnostics Vital Signs (24Hr): Vital Signs - 24 hr 06/09/21 16:53 06/10/21 06:00 Temperature 97.8 F 98.3 F Pulse Rate 85 74 Respiratory Rate 18 16 Blood Pressure 108/52 L 100/55 L Pulse Oximetry 100 93 Body Mass Index 26.9 Labs Results: 06/03/21 18:44 06/03/21 18:44 Medications Medications Current Medications Generic Name Dose Route Start Last Admin Trade Name Freq PRN Reason Stop Dose Admin Acetaminophen 650 mg 06/03/21 19:53 06/07/21 18:52 Acetaminophen 325 Mg Tablet PO 650 mg Q6H PRN Administration Headache/Pain Mild Scale (1-3) Al Hydroxide/Mg Hydroxide 30 ml 06/03/21 19:53 Magnesium Hydrox/Alum Hydrox 30 Ml Oral.Susp PO Q6H PRN Heartburn/Nausea Benztropine Mesylate 1 mg 06/03/21 21:00 06/10/21 08:24 Benztropine Mesylate 1 Mg Tablet PO 1 mg BID GRACE Administration Cyanocobalamin 1,000 mcg 06/06/21 09:00 06/10/21 08:24 Cyanocobalamin (Vitamin B-12) 1,000 Mcg Tablet PO 1,000 mcg DAILY GRACE Administration Haloperidol 5 mg 06/03/21 21:00 06/10/21 08:24 Haloperidol 5 Mg Tablet PO 5 mg BID GRACE Administration Hydroxyzine HCl 25 mg 06/03/21 19:53 06/03/21 20:52 Hydroxyzine Hcl 25 Mg Tablet PO 25 mg BEDTIME PRN Administration Anxiety [place] Carbonate 300 mg 06/08/21 21:00 06/10/21 08:24 [place] Carbonate 300 Mg Capsule PO 300 mg BID GRACE Administration Magnesium Hydroxide 30 ml 06/03/21 19:53 Milk Of Magnesia 30 Ml Oral.Susp PO DAILY PRN Constipation Nicotine 14 mg 06/04/21 09:00 06/10/21 08:24 Nicotine 14 Mg Patch.Td24 TRANSDERMA 14 mg DAILY GRACE Administration Nicotine Polacrilex 4 mg 06/03/21 19:53 06/05/21 20:08 Nicotine Polacrilex 2 Mg Gum BUCCAL 4 mg Q2H PRN Administration Nicotine Cravings Risperidone 2 mg 06/03/21 21:00 06/10/21 08:24 Risperidone 2 Mg Tablet PO 2 mg BID GRACE Administration Trazodone HCl 50 mg 06/03/21 19:53 06/09/21 21:26 Trazodone Hcl 50 Mg Tablet PO 50 mg BEDTIME PRN Administration Insomnia Allergies Allergies Allergy/AdvReac Type Severity Reaction Status Date / Time No Known Allergies Allergy Verified 06/02/21 21:49 [No Known Allergies*] Assessment & Plan Assessment & Plan (1) Schizophrenia, paranoid, chronic with acute exacerbation: Status: Acute Code(s): F20.0 - Paranoid schizophrenia 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 Duckworth who agrees that lately pt has been presenting with more expansive, sexualize behaviors/delusions. Agreed to start mood stabilizer. 1. continue current medications- risperidone and haldol 2. Start lithium 300mg po BID. 3. Coordinate care-aftercare planning. Greater than 50% of the session was spent on counseling and/or coordination of care Reason for contiued inpatient stay Substantial Risk for: inability to function
[2021-06-09 16:53] VITALS: BP 108/52; PULSE 85; RESP 18; TEMP 36.6; O2SAT 100
[2021-06-09] MEDS: traZODone HCL 50 MG TABLET PO (21:26)
[2021-06-10 06:00] VITALS: BP 100/55; PULSE 74; RESP 16; TEMP 36.8; O2SAT 93
[2021-06-10] MEDS: Nicotine 14 MG PATCH.TD24 TRANSDERMA (08:24)
[2021-06-10] MEDS: HaloperidoL 5 MG TABLET PO (08:24)
[2021-06-10] MEDS: Benztropine Mesylate 1 MG TABLET PO (08:24)
[2021-06-10] MEDS: Lithium Carbonate 300 MG CAPSULE PO (08:24)
[2021-06-10] MEDS: risperiDONE 2 MG TABLET PO (08:24)
[2021-06-10] MEDS: Cyanocobalamin (Vitamin B-12) 1,000 MCG TABLET 1000 MCG PO (08:24)
--- NOTE | 2021-06-10 11:51 | PM.PSYDC ---
DS: Providers Provider Date of Service: 06/10/21 Date of admission: 06/03/21 19:53 Primary care physician: Unknown Physician DS: Diagnosis Discharge Diagnosis (1) Schizophrenia, paranoid, chronic with acute exacerbation: Status: Acute DS: Medications Discharge Medications Home Medications: Previous Rx's Medication Instructions Recorded Risperdal Consta 1 syringe IM Q2W #1 ea 06/10/21 benztropine 1 mg PO BID #30 tab 06/10/21 cyanocobalamin (vitamin B-12) 1,000 mcg PO DAILY #30 tab 06/10/21 [Vitamin B-12] haloperidol 5 mg PO BID #60 tab 06/10/21 lithium carbonate 300 mg PO BID #60 cap 06/10/21 nicotine 14 mg TRANSDERMAL DAILY #28 ea 06/10/21 trazodone 50 mg PO BEDTIME PRN #30 tab 06/10/21 Mental Status Exam Mental Status Exam Narrative: Appearance: casually groomed, good hygiene, in NAD Behavior: calm, cooperative Psychomotor: no agitation or retardation noted Speech: a little soft but clear, normal rate/rhythm, spontaneous TP: goal directed TC: denies SI/HI; denies paranoid/persecutory delusions; Mood: good Affect:somewhat expansive at times SI:denies HI:denies AH/VH:reports resolved but appears internally preoccupied. Delusions:denies paranoid/persecutory delusions Insight/judgment:poor x 2. Memory/cog: alert, oriented x 3. impaired secondary to psychiatric problems. Data Data Completed and Pending Completed studies during hospitalization [Text1]: 06/03/21 06/03/21 06/05/21 18:44 18:44 08:03 WBC 10.0 RBC 4.34 L Hgb 13.6 L Hct 39.5 L MCV 91.0 MCH 31.3 MCHC 34.4 RDW 12.1 Plt Count 204 MPV 10.3 Immature Gran % (Auto) 0.2 Neut % (Auto) 55.1 Lymph % (Auto) 30.6 Laurel % (Auto) 9.3 Eos % (Auto) 4.4 H Baso % (Auto) 0.4 Lymph # (Auto) 3.1 Laurel # (Auto) 0.9 Eos # (Auto) 0.4 Baso # (Auto) 0.0 Abs Immat Gran (auto) 0.02 Absolute Neuts (auto) 5.5 Absolute Nucleated RBC 0.000 Nucleated RBC % (auto) 0.0 Sodium 139 Potassium 4.0 Chloride 106 Carbon Dioxide 23 Anion Gap 14 BUN 9 Creatinine 1.06 Estim Creat Clear Calc 98.5 Estimated GFR > 60 Random Glucose 128 H D Calcium 9.1 Total Bilirubin 0.2 AST 17 ALT 33 Alkaline Phosphatase 82 Total Protein 6.4 L Albumin 4.2 Vitamin B12 190 L Folate 4.7 DS: Summary Hospital Course Hospital Course: Mr. Orozco is a 30 year-old male with hx of schizophrenia who was recently discharged from on 05/04/2021 after being treated for increased delusions, AH and SI with plan to jump off window. He was started on Haldol 5mg po BID, in addition to risperidone consta. This time Mr. Orozco self presented to [facility] reporting increase CAH, HI towards anyone who talks with GF. He reported having muscle stiffness with medications right after discharge.? In the ED, his utox was negative. On the unit, pt appears guarded, minimally providing detail related to events leading to re-hospitalization. He reports hearing voices, not feeling safe at home. He continues to believe he has a daughter with a woman he has never met. He denies SI in the unit, but also appears not fully forthcoming. He responds I don't know to most other questions related to his mood and situation at home that could have triggered him. He reports sleep and appetite are okay. Unclear if at home taking medications as prescribed. Past Psychiatric History: Inpatient: multiple in past, most recent one 05/04/2021 OP: [place] Fermín Duckworth Past medication trials: risperidone consta, haldol HOSPITAL COURSE On the unit, Mr. Orozco presented with somewhat of an expansive mood, which is not his usual. He typically presents as guarded and highly suspicious and hypervigilant. He reported having telepathic relationship with women who easily fall in love with him. He also reported some paranoid ideas of neighbors trying to hurt him. However, this time he was more visible in unit, inense eye contact especially with female staff and pt. Collateral 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 Duckworth was gathered, who agreed that pt was presenting with more expansive affect this time and recommended adding mood stabilizer to antipsychotic. Pt has been on risperidone consta for about one or two years after admission to [facility], however, risperidone has not been fully effective at treating his paranoid delusions and psychosis. Last admission at [facility], pt started on haldol in addition to risperidone. 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 He agreed to continue risperidone consta. Haldol was increased to 5mg po BID. He was started on lithium. I would recommend halfway to try him monotherapy on haldol with option of MENENDEZ or consider clozaril although complaince may be limiting factor. Pt presented less guarded, less expansive affect and less intense eye contact, less rumination about having telepathy GF. He was sleeping and eating well. There were no incidences of disruptive behaviors nor use of restraints. Time spent discussing smoking cessation with patient: 3 to 10 minutes Status at Discharge Cognitive/behavioral status at discharge: Pt less paranoid, less AH/VH. He denied SI/HI. No signs of aggression towards self or others. Functional status at discharge: independent ambulation Time Spent with Patient Time attestation: Total time spent providing and/or coordinating discharge services: Discharge Plan Discharge Patient Disposition: Home, Self-Care Discharge Diagnosis: Schizoaffective disorder Referrals: [facility] RN [Other] - 06/11/21 ([phone]iting RN to restart following D/C- on 06/11/21. ) Dr. Bowen (psychiatrist) [Other] - 06/12/21 11:00 am (Telehealth appointment) Myesha Hill (therapist) [Other] (voicemail left for appointment, she will follow up to schedule) Nevaeh Salas MD [Physician] - 06/25/21 2:45 pm (VIA PHONE) Discharge Medications: New nicotine 14 mg/24 hr Patch 24 Hour 14 mg transdermal DAILY Qty: 28 RF: 0 trazodone 50 mg Tablet 50 mg PO BEDTIME PRN (Reason: Insomnia) Qty: 30 RF: 0 cyanocobalamin (vitamin B-12) [Vitamin B-12] 1,000 mcg Tablet 1,000 mcg PO DAILY Qty: 30 RF: 0 lithium carbonate 300 mg Capsule 300 mg PO BID Qty: 60 RF: 0 haloperidol 5 mg Tablet 5 mg PO BID Qty: 60 RF: 0 benztropine 1 mg Tablet 1 mg PO BID Qty: 30 RF: 0 Continued Risperdal Consta 50 mg/2 mL suspension,extended rel recon 1 syringe IM Q2W Qty: 1 RF: 0 Discontinued benztropine 1 mg tablet 1 tab PO BID RF: 0 risperidone 2 mg tablet 2 mg PO BID RF: 0 haloperidol 5 mg Tablet 5 mg PO BID 30 Days Qty: 60 RF: 0 Discharge Orders: Discharge Order (Routine); Ordered 06/10/21 Ordered By: Mita Sinclair Diet: regular diet Activity on Discharge: As tolerated Stand Alone Forms: Patient Portal Discharge page, Community Support Care Plan Goals: 1. Maintain mood 2. No SI/HI Health Concerns: 1. Follow up with PCP Plan of Treatment: 1. Take medications as prescribed. 2. Follow up with appointments 3. Go to ED or call 911 in event of emergency Assessment: Pt is less paranoid, no SI/HI. No aggression towards self or others. Discharge Date/Time: 06/10/21 13:10
== END 2021-06-10 13:10 | disposition home or self-care (01) | DRG 885 ==
LOC: HO.ED 06-03 19:36 → HO.PM5 06-03 20:10
PROVIDERS: Nurse Practitioner Family; Admitting Provider Psychiatry & Neurology Psychiatry; Emergency Provider Emergency Medicine; Visit Provider Social Worker
DX: F20.0 Paranoid schizophrenia (principal); R45.851 Suicidal ideations; F17.210 Nicotine dependence, cigarettes, uncomplicated; Z71.6 Tobacco abuse counseling; Z20.822 Contact with and (suspected) exposure to COVID-19; Z79.899 Other long term (current) drug therapy
CPT/HCPCS: 36415; 80053; 80307; 82607; 82746; 85025; 87635; 93005; 99284

== ENCOUNTER 2022-12-04 10:33 | Outpatient (REF) | payer OTHER, SELFPAY ==
[2022-12-04 10:51] LABS: MANUAL DIFF FLAG NO
[2022-12-04 11:05] LABS: Basophils Percent Auto 0.5 % (0-2); Eosinophils Absolute Auto 0.4 X10*3/uL (0.0-0.4); Eosinophils Percent Auto 4.5 % (0-4); Hematocrit 41.6 % (42.0-52.0); Hemoglobin 13.9 g/dl (14.0-18.0); Imm Gran Abs Auto 0.02 X10*3/uL (0.00-0.03); Imm Gran Pct Auto 0.3 % (0.0-0.4); Lymphocytes Absolute Auto 2.1 X10*3/uL (1.2-4.9); Lymphocytes Percent Auto 26.7 % (20-40); Mean Corpuscular HGB Conc 33.4 g/dl (31.0-36.0); Mean Corpuscular Hemoglobin 31.7 pg (27.0-33.0); Monocytes Absolute Auto 0.6 X10*3/uL (0.1-1.2); Monocytes Percent Auto 7.3 % (2-11); Neutrophils Absolute Auto 4.8 x10*3/uL (2.0-8.3); Neutrophils Percent Auto 60.7 % (45-73); Platelet Count 166 X10*3/uL (160-400); Red Blood Count 4.38 X10*6/uL (4.60-5.80); Red Cell Distribution Width 12.6 % (11.0-16.0); White Blood Count 7.8 X10*3/uL (4.8-10.8)
[2022-12-04 11:22] LABS: Lithium 0.38 mmol/L (0.60-1.20)
[2022-12-04 11:34] LABS: Alanine Aminotransferase 13 U/L (0-40); Albumin Level 4.6 g/dL (3.5-5.0); Alkaline Phosphatase 80 U/L (39-117); Anion Gap 13 (12-20); Aspartate Amino Transferase 17 U/L (5-37); Bilirubin Total 0.8 mg/dL (0.0-1.0); Blood Urea Nitrogen 7 mg/dL (9-16); Calcium 9.8 mg/dL (8.4-10.2); Carbon Dioxide 23 mmol/L (22-29); Chloride 108 mmol/L (96-108); Estimated Glomerular Filt Rate > 60; Glucose Random 106 mg/dL (60-115); Potassium 4.3 mmol/L (3.3-5.1); Sodium 140 mmol/L (135-145); Total Protein 6.9 g/dL (6.5-8.0)
[2022-12-04 11:56] LABS: Thyroid Stimulating Hormone 1.23 uIU/mL (0.32-4.0)
== END 2022-12-04 10:34 | disposition home or self-care (01) ==
LOC: HO.LAB 10:33
PROVIDERS: PCP Family Medicine; Visit Provider Psychiatry & Neurology Psychiatry
DX: Z79.899 Other long term (current) drug therapy (principal)
CPT/HCPCS: 36415; 80053; 80178; 84443; 85025

== ENCOUNTER 2023-06-08 09:08 | Outpatient (REF) | payer OTHER, SELFPAY ==
[2023-06-08 11:22] LABS: MANUAL DIFF FLAG NO
[2023-06-08 11:33] LABS: Basophils Percent Auto 0.5 % (0-2); Eosinophils Absolute Auto 0.4 X10*3/uL (0.0-0.4); Eosinophils Percent Auto 5.6 % (0-4); Hematocrit 42.5 % (42.0-52.0); Hemoglobin 14.4 g/dl (14.0-18.0); Imm Gran Abs Auto 0.01 X10*3/uL (0.00-0.03); Imm Gran Pct Auto 0.1 % (0.0-0.4); Lymphocytes Absolute Auto 2.2 X10*3/uL (1.2-4.9); Lymphocytes Percent Auto 29.2 % (20-40); Mean Corpuscular HGB Conc 33.9 g/dl (31.0-36.0); Mean Corpuscular Hemoglobin 31.7 pg (27.0-33.0); Mean Corpuscular Volume 93.6 fL (80.0-98.0); Mean Platelet Volume 11.3 fL (9.4-12.4); Monocytes Absolute Auto 0.7 X10*3/uL (0.1-1.2); Neutrophils Absolute Auto 4.3 x10*3/uL (2.0-8.3); Neutrophils Percent Auto 55.6 % (45-73); Platelet Count 178 X10*3/uL (160-400); Red Blood Count 4.54 X10*6/uL (4.60-5.80); Red Cell Distribution Width 12.5 % (11.0-16.0); White Blood Count 7.7 X10*3/uL (4.8-10.8)
[2023-06-08 12:46] LABS: Alanine Aminotransferase 10 U/L (0-40); Albumin Level 4.2 g/dL (3.5-5.0); Alkaline Phosphatase 80 U/L (39-117); Anion Gap 13 (12-20); Aspartate Amino Transferase 12 U/L (5-37); Bilirubin Total 0.4 mg/dL (0.0-1.0); Blood Urea Nitrogen 8 mg/dL (9-16); Calcium 9.9 mg/dL (8.4-10.2); Carbon Dioxide 23 mmol/L (22-29); Chloride 109 mmol/L (96-108); Estimated Glomerular Filt Rate > 60; Glucose Random 98 mg/dL (60-115); Potassium 3.8 mmol/L (3.3-5.1); Sodium 141 mmol/L (135-145); Total Protein 6.6 g/dL (6.5-8.0)
[2023-06-08 12:47] LABS: Thyroid Stimulating Hormone 2.13 uIU/mL (0.32-4.0)
== END 2023-06-08 09:09 | disposition home or self-care (01) ==
LOC: HO.HHCL 09:08
PROVIDERS: Visit Provider Psychiatry & Neurology Psychiatry
DX: Z79.899 Other long term (current) drug therapy (principal)
CPT/HCPCS: 36415; 80053; 80178; 84443; 85025

== ENCOUNTER 2024-03-27 10:08 | Outpatient (REF) | payer OTHER, SELFPAY ==
[2024-03-27 11:41] LABS: MANUAL DIFF FLAG NO
[2024-03-27 12:00] LABS: Basophils Absolute Auto 0.1 X10*3/uL (0.0-0.2); Eosinophils Absolute Auto 0.4 X10*3/uL (0.0-0.4); Eosinophils Percent Auto 6.2 % (0-4); Hematocrit 41.5 % (42.0-52.0); Imm Gran Abs Auto 0.01 X10*3/uL (0.00-0.03); Imm Gran Pct Auto 0.2 % (0.0-0.4); Lymphocytes Absolute Auto 1.8 X10*3/uL (1.2-4.9); Lymphocytes Percent Auto 28.6 % (20-40); Mean Corpuscular HGB Conc 33.7 g/dl (31.0-36.0); Mean Corpuscular Hemoglobin 32.3 pg (27.0-33.0); Mean Corpuscular Volume 95.6 fL (80.0-98.0); Mean Platelet Volume 11.5 fL (9.4-12.4); Monocytes Absolute Auto 0.5 X10*3/uL (0.1-1.2); Monocytes Percent Auto 7.9 % (2-11); Neutrophils Absolute Auto 3.4 x10*3/uL (2.0-8.3); Neutrophils Percent Auto 56.1 % (45-73); Platelet Count 169 X10*3/uL (160-400); Red Blood Count 4.34 X10*6/uL (4.60-5.80); Red Cell Distribution Width 12.4 % (11.0-16.0); White Blood Count 6.1 X10*3/uL (4.8-10.8)
[2024-03-27 12:29] LABS: Lithium 0.56 mmol/L (0.60-1.20)
[2024-03-27 12:59] LABS: Alanine Aminotransferase 10 U/L (0-40); Albumin Level 4.4 g/dL (3.5-5.0); Alkaline Phosphatase 72 U/L (39-117); Anion Gap 9 (12-20); Aspartate Amino Transferase 11 U/L (5-37); Bilirubin Direct 0.2 mg/dL (0.0-0.5); Bilirubin Total 0.5 mg/dL (0.0-1.0); Blood Urea Nitrogen 8 mg/dL (9-16); Calcium 9.6 mg/dL (8.4-10.2); Carbon Dioxide 25 mmol/L (22-29); Chloride 108 mmol/L (96-108); Estimated Glomerular Filt Rate > 60; Glucose Fasting 107 mg/dL (60-99); Glucose Random 107 mg/dL (60-115); Potassium 4.1 mmol/L (3.3-5.1); Sodium 138 mmol/L (135-145); Thyroid Stimulating Hormone 1.09 uIU/mL (0.32-4.0); Total Protein 6.9 g/dL (6.5-8.0)
== END 2024-03-27 10:09 | disposition home or self-care (01) ==
LOC: HO.HHCL 10:08
PROVIDERS: Visit Provider Psychiatry & Neurology Psychiatry
DX: Z79.899 Other long term (current) drug therapy (principal)
CPT/HCPCS: 36415; 80053; 80178; 82248; 84443; 85025

== ENCOUNTER 2024-06-23 10:50 | Outpatient (REF) | payer OTHER, SELFPAY ==
[2024-06-23 11:07] LABS: MANUAL DIFF FLAG NO
[2024-06-23 11:15] LABS: Basophils Percent Auto 0.4 % (0-2); Eosinophils Absolute Auto 0.4 X10*3/uL (0.0-0.4); Eosinophils Percent Auto 5.2 % (0-4); Hematocrit 41.4 % (42.0-52.0); Hemoglobin 14.1 g/dl (14.0-18.0); Imm Gran Abs Auto 0.02 X10*3/uL (0.00-0.03); Imm Gran Pct Auto 0.3 % (0.0-0.4); Lymphocytes Percent Auto 28.3 % (20-40); Mean Corpuscular HGB Conc 34.1 g/dl (31.0-36.0); Mean Corpuscular Volume 94.1 fL (80.0-98.0); Mean Platelet Volume 10.5 fL (9.4-12.4); Monocytes Absolute Auto 0.6 X10*3/uL (0.1-1.2); Monocytes Percent Auto 8.6 % (2-11); Neutrophils Percent Auto 57.2 % (45-73); Platelet Count 170 X10*3/uL (160-400); Red Cell Distribution Width 12.8 % (11.0-16.0); White Blood Count 7.1 X10*3/uL (4.8-10.8)
[2024-06-23 11:52] LABS: Lithium 0.42 mmol/L (0.60-1.20)
[2024-06-23 12:08] LABS: Alanine Aminotransferase 11 U/L (0-40); Albumin Level 4.6 g/dL (3.5-5.0); Alkaline Phosphatase 87 U/L (39-117); Anion Gap 11 (12-20); Aspartate Amino Transferase 12 U/L (5-37); Bilirubin Total 0.5 mg/dL (0.0-1.0); Blood Urea Nitrogen 7 mg/dL (9-16); Calcium 9.9 mg/dL (8.4-10.2); Carbon Dioxide 23 mmol/L (22-29); Chloride 110 mmol/L (96-108); Cholesterol 184 mg/dL (<200); Estimated Glomerular Filt Rate > 60; Glucose Random 102 mg/dL (60-115); HDL Cholesterol 45 mg/dL (>40); LDL Cholesterol Calculated 126 mg/dL (<100); Potassium 4.2 mmol/L (3.3-5.1); Sodium 140 mmol/L (135-145); Triglycerides 68 mg/dL (<150)
[2024-06-23 12:25] LABS: Thyroid Stimulating Hormone 1.33 uIU/mL (0.32-4.0)
== END 2024-06-23 10:51 | disposition home or self-care (01) ==
LOC: HO.LAB 10:50
PROVIDERS: Visit Provider Psychiatry & Neurology Psychiatry
DX: Z79.899 Other long term (current) drug therapy (principal)
CPT/HCPCS: 36415; 80053; 80061; 80178; 84443; 85025

== ENCOUNTER 2025-02-10 11:28 | Emergency (ER) | payer OTHER, SELFPAY ==
[2025-02-10 11:29] VITALS: BP 102/65; PULSE 70; RESP 16; TEMP 36.9; O2SAT 95; BMI 21.3
--- NOTE | 2025-02-10 11:31 | ED_ITS ---
HPI - Back Pain/Injury General Chief Complaint: Back Pain/Injury Stated Complaint: back pain Time Seen by Provider: 02/10/25 11:35 Source: patient Mode of arrival: ambulatory Limitations: no limitations History of Present Illness ED Provider: Rik Gomez PA-C HPI Narrative: 34 yo male with history of paranoid schizophrenia who presents to the ER for evaluation of 1 week of intermittent right middle/lower back pains. 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 the pain is worse when he twists, lifts his right arm or takes a deep breath. he has no pain at rest. no urinary symptoms. no fevers, no chest pain. MD elicited complaint: back pain Onset (ago): week(s) (1) Timing: intermittent Severity: moderate Pain scale (0-10): 7 Similar Symptoms Previously: No Quality: aching and spasming Location: right lower back (middle back) Radiation: none Exacerbating factors: movement Relieving factors: immobilization Context: unknown Associated symptoms: denies other symptoms Related Data Previous Rx's ?Medication ?Instructions ?Recorded benztropine 1 mg tablet 1 mg PO BID #30 tabs 06/10/21 cyanocobalamin (vitamin B-12) 1,000 mcg PO DAILY #30 tabs 06/10/21 1,000 mcg tablet (Vitamin B-12) haloperidol 5 mg tablet 5 mg PO BID #60 tabs 06/10/21 lithium carbonate 300 mg capsule 300 mg PO BID #60 caps 06/10/21 nicotine 14 mg/24 hr daily 14 mg transdermal DAILY #28 ea 06/10/21 transdermal patch risperidone microspheres 50 mg/2 1 syringe IM Q2W #1 ea 06/10/21 mL intramuscular susp,ext release (Risperdal Consta) trazodone 50 mg tablet 50 mg PO BEDTIME PRN Insomnia #30 06/10/21 tabs cyclobenzaprine 10 mg tablet 10 mg PO TID PRN muscle spasm #10 02/10/25 tabs ibuprofen 600 mg tablet 600 mg PO Q8H PRN pain #10 tabs 02/10/25 lidocaine 5 % topical patch 1 patch topical DAILY #15 ea 02/10/25 Allergies Allergy/AdvReac Type Severity Reaction Status Date / Time No Known Allergies Allergy Verified 02/10/25 11:34 [No Known Allergies*] Review of Systems Review of Systems: Yes all other systems are reviewed and are negative [facility] Past Medical History Medical History Schizoaffective disorder Social History Social History Household Members: Family Housing: Apartment Do you presently have visiting nurse or other home services: No Comment: [facility] admission Patient Tobacco Use Status: Current everyday Tobacco user Tobacco use type: Cigarette Cigarette Packs Per Day: 0.5 Cigarettes Per Day: 10.0 e-Cigarette/Vaping Use: Never Used Second Hand Smoke Exposure: No Substance Use Type: Marijuana Advance Directives: No Advance Directives Information Provided: Yes service: No Sexual orientation: did not discuss Physical Exam Vital Signs: Vital Signs: Last Vital Signs Temp 98.5 F 02/10/25 11:29 Pulse 70 02/10/25 11:29 Resp 16 02/10/25 11:29 BP 102/65 02/10/25 11:29 Pulse Ox 95 02/10/25 11:29 O2 Del Method Room Air 02/10/25 11:29 BMI result Body Mass Index 21.3 Appearance: Alert. Oriented X3. No acute distress. HEENT: normal inspection CVS: Normal heart rate and rhythm. Pulses normal. Respiratory: No respiratory distress. lungs are CTAB, speaking in complete sentences Back: normal inspection. soft tissue tenderness in the middle/lower thoracic area. no midline tenderness of the spine Skin: Skin warm and dry. Normal skin color. Normal skin turgor. No rashes. Extremities: normal inspectrion x4, no peripheral edema. passive ROM of the right arm illicits pain in the back Neuro: Oriented X 3. grossly normal, nonfocal, steady gait Medical Decision Making Medical Decision Making MDM Narrative: 34 yo male with history of schizophrenia presenting with right middle/lower back pain for 1 week, worse with movement. exam is reassuring with soft tissue tenderness and palpable spasm. lungs are clear. most likely MSK pain. will treat with NSAID, muscle relaxer, lidoderm. discussed ice/heat/massage as well. stable for d/c home. encouraged outpatient follow up. Differential Diagnosis Differential Diagnoses: The differential diagnosis associated with the presentation includes Inflammatory disorders, malignancy, trauma, osteoporosis, nerve root compression, radiculopathy, plexopathy, degenerative disc disease, disc herniation, muscle spasm, and less likely PE, PNA, infection?like abscess or diskitis Tests considered The following testing was considered but not selected: considered x-ray, no trauma, no bony tenderness Prescription Management I considered prescription management with: Pain Medication Chronic Conditions Patient?s care impacted by: Other (schizophrenia) Critical Care Time Critical Care Time Critical Care Time: No Discharge Plan Discharge Clinical Impression: Muscle spasm Patient Disposition: Home, Self-Care Instructions: Muscle Spasm (ED) Additional Instructions: Your pain is most likely due to muscle strain and spasm. Limit bending, lifting >15 lbs or twisting movement. Use ice several times per day for 20 minutes at a time for the next 48 hours and then change to heat. Take medications as prescribed to help with pain and discomfort. Follow up with your Primary Care Doctor next week. If your pain worsens, if you develop new numbness, tingling, weakness, loss of function or incontinence call 911 or come back to the ER right away for evaluation. Prescriptions: New cyclobenzaprine 10 mg tablet 10 mg PO TID PRN (Reason: muscle spasm) Qty: 10 0RF ibuprofen 600 mg tablet 600 mg PO Q8H PRN (Reason: pain) Qty: 10 0RF lidocaine 5 % adhesive patch,medicated 1 patch topical DAILY Qty: 15 0RF Rx Instructions: leave on most painful area for up to 12 hrs No Action nicotine 14 mg/24 hr Patch 24 Hour 14 mg transdermal DAILY Qty: 28 0RF trazodone 50 mg Tablet 50 mg PO BEDTIME PRN (Reason: Insomnia) Qty: 30 0RF cyanocobalamin (vitamin B-12) [Vitamin B-12] 1,000 mcg Tablet 1,000 mcg PO DAILY Qty: 30 0RF lithium carbonate 300 mg Capsule 300 mg PO BID Qty: 60 0RF Risperdal Consta 50 mg/2 mL suspension,extended rel recon 1 syringe IM Q2W Qty: 1 0RF haloperidol 5 mg Tablet 5 mg PO BID Qty: 60 0RF benztropine 1 mg Tablet 1 mg PO BID Qty: 30 0RF Referrals: Nahomy Storm MD [Primary Care Provider] - Stand Alone Forms: Work/School Release Print Language: Monegasque
[2025-02-10 11:49] VITALS: BP 102/65; PULSE 70; RESP 16; TEMP 36.9; O2SAT 95
== END 2025-02-10 11:49 | disposition home or self-care (01) ==
LOC: HO.ED 11:40
PROVIDERS: Emergency Provider Emergency Medicine; PCP Family Medicine
DX: M62.830 Muscle spasm of back (principal); M54.50 Low back pain, unspecified
CPT/HCPCS: 99282; 99283

== ENCOUNTER 2025-02-23 10:01 | Outpatient (REF) | payer OTHER, SELFPAY ==
[2025-02-23 10:23] LABS: MANUAL DIFF FLAG NO
[2025-02-23 11:13] LABS: Basophils Absolute Auto 0.1 X10*3/uL (0.0-0.2); Basophils Percent Auto 0.6 % (0-2); Eosinophils Absolute Auto 0.3 X10*3/uL (0.0-0.4); Hemoglobin 14.6 g/dl (14.0-18.0); Imm Gran Abs Auto 0.02 X10*3/uL (0.00-0.03); Imm Gran Pct Auto 0.3 % (0.0-0.4); Lymphocytes Absolute Auto 1.8 X10*3/uL (1.2-4.9); Lymphocytes Percent Auto 23.6 % (20-40); Mean Corpuscular HGB Conc 34.8 g/dl (31.0-36.0); Mean Corpuscular Hemoglobin 31.9 pg (27.0-33.0); Mean Corpuscular Volume 91.7 fL (80.0-98.0); Mean Platelet Volume 10.5 fL (9.4-12.4); Monocytes Absolute Auto 0.6 X10*3/uL (0.1-1.2); Monocytes Percent Auto 7.2 % (2-11); Neutrophils Percent Auto 64.3 % (45-73); Platelet Count 219 X10*3/uL (160-400); Red Blood Count 4.58 X10*6/uL (4.60-5.80); Red Cell Distribution Width 12.5 % (11.0-16.0); White Blood Count 7.8 X10*3/uL (4.8-10.8)
[2025-02-23 11:35] LABS: Lithium 0.65 mmol/L (0.60-1.20)
[2025-02-23 11:53] LABS: Alanine Aminotransferase 16 U/L (0-40); Albumin Level 4.6 g/dL (3.5-5.0); Alkaline Phosphatase 87 U/L (39-117); Anion Gap 9 (12-20); Aspartate Amino Transferase 17 U/L (5-37); Bilirubin Direct 0.2 mg/dL (0.0-0.5); Bilirubin Total 0.6 mg/dL (0.0-1.0); Blood Urea Nitrogen 6 mg/dL (9-16); Calcium 9.7 mg/dL (8.4-10.2); Carbon Dioxide 25 mmol/L (22-29); Chloride 109 mmol/L (96-108); Cholesterol 195 mg/dL (<200); Estimated Glomerular Filt Rate > 60; Glucose Random 104 mg/dL (60-115); HDL Cholesterol 46 mg/dL (>40); LDL Cholesterol Calculated 133 mg/dL (<100); Potassium 3.9 mmol/L (3.3-5.1); Sodium 139 mmol/L (135-145); Total Protein 7.4 g/dL (6.5-8.0); Triglycerides 82 mg/dL (<150)
[2025-02-23 12:10] LABS: Thyroid Stimulating Hormone 1.06 uIU/mL (0.32-4.0); Vitamin D 25-OH Total 21.4 ng/mL (>30)
== END 2025-02-23 10:02 | disposition home or self-care (01) ==
LOC: HO.LAB 10:01
PROVIDERS: Visit Provider Psychiatry & Neurology Psychiatry
DX: Z79.899 Other long term (current) drug therapy (principal)
CPT/HCPCS: 36415; 80053; 80061; 80178; 82248; 82306; 84443; 85025

== ENCOUNTER 2025-04-01 11:57 | Emergency (ER) | payer OTHER, SELFPAY ==
--- NOTE | ~2025-04-01 | XR_ITS ---
EXAMINATION: XR CHEST CLINICAL INFORMATION: abnormal thoracic spine, opacity seen COMPARISON: Thoracic spine radiograph dated earlier same day. Chest radiograph 11/08/2018 TECHNIQUE: 2 views of the chest were obtained. FINDINGS: The cardiac, hilar, and mediastinal contours are normal. There is a healing rib fracture with bony callus involving posterior lateral right sixth rib, accounting for the opacity seen on the thoracic spine examination. The lungs are clear. There is no pneumothorax or pleural effusion. There is no focal osseous or soft tissue abnormality. XR/XR chest 2V IMPRESSION: 1. Healing right posterior lateral fifth rib fracture, accounting for the opacity seen on the thoracic spine examination. 2. No active pulmonary disease. Electronically signed by: Brandan Sherman MD 04/01/2025 02:57 PM EDT
--- NOTE | ~2025-04-01 | XR_ITS ---
EXAMINATION: XR THORACIC SPINE CLINICAL INFORMATION: back pain COMPARISON: None available. TECHNIQUE: 3 views of the thoracic spine were obtained. FINDINGS: S-shaped curvature of the thoracolumbar spine. No acute cortical disruption or malalignment. No lytic or blastic lesions. There is a 6 mm round opacity in the right upper hemithorax. XR/XR thoracic spine 3V IMPRESSION: Mild S-shaped scoliosis. 6 mm round opacity right upper hemithorax. Electronically signed by: Gian Alfonso MD 04/01/2025 01:24 PM EDT
--- NOTE | ~2025-04-01 | XR_ITS ---
EXAMINATION: XR LUMBOSACRAL SPINE CLINICAL INFORMATION: back pain COMPARISON: None available. TECHNIQUE: Three views of the lumbosacral spine. FINDINGS: No acute cortical disruption or malalignment. No lytic or blastic lesions. No metallic or radiopaque foreign body. XR/XR lumbar spine 2-3V IMPRESSION: No acute fracture or listhesis. Negative exam. Electronically signed by: Gian Alfonso MD 04/01/2025 01:23 PM EDT
[2025-04-01 12:07] VITALS: BP 106/69; PULSE 88; RESP 18; TEMP 36.6; O2SAT 98; BMI 27.4
--- NOTE | 2025-04-01 12:28 | ED.GENADULT ---
HPI - General Adult General Chief complaint: Back Pain/Injury Stated complaint: muscle spasm in back Time Seen by Provider: 04/01/25 16:36 Source: patient Mode of arrival: ambulatory Limitations: no limitations History of Present Illness ED Provider: Javon Hazel HPI narrative: 34 yold male with pmh of schizophrenia presents to the ED for right upper back pain that is worse on movement. Patient states history of back spasm. Patient denies any recent trauma, fever, chills, abdominal pain, nuasea, vomitting, urinary/bowel incontienence, dysuria, hemautira, IV drug use, or immuno comprmisied diseases. Related Data Previous Rx's ?Medication ?Instructions ?Recorded benztropine 1 mg tablet 1 mg PO BID #30 tabs 06/10/21 cyanocobalamin (vitamin B-12) 1,000 mcg PO DAILY #30 tabs 06/10/21 1,000 mcg tablet (Vitamin B-12) haloperidol 5 mg tablet 5 mg PO BID #60 tabs 06/10/21 lithium carbonate 300 mg capsule 300 mg PO BID #60 caps 06/10/21 nicotine 14 mg/24 hr daily 14 mg transdermal DAILY #28 ea 06/10/21 transdermal patch risperidone microspheres 50 mg/2 1 syringe IM Q2W #1 ea 06/10/21 mL intramuscular susp,ext release (Risperdal Consta) trazodone 50 mg tablet 50 mg PO BEDTIME PRN Insomnia #30 06/10/21 tabs cyclobenzaprine 10 mg tablet 10 mg PO TID PRN muscle spasm #10 02/10/25 tabs ibuprofen 600 mg tablet 600 mg PO Q8H PRN pain #10 tabs 02/10/25 lidocaine 5 % topical patch 1 patch topical DAILY #15 ea 02/10/25 naproxen 500 mg tablet 500 mg PO BID PRN pain #14 tabs 04/01/25 Allergies Allergy/AdvReac Type Severity Reaction Status Date / Time No Known Allergies Allergy Verified 04/01/25 12:09 [No Known Allergies*] Review of Systems Review of Systems: back pain Yes all other systems are reviewed and are negative PMFSH Past Medical History Medical History Schizoaffective disorder Social History Social History Household Members: Family Housing: Apartment Do you presently have visiting nurse or other home services: No Comment: [facility] admission Patient Tobacco Use Status: Current everyday Tobacco user Tobacco use type: Cigarette Cigarette Packs Per Day: 0.5 Cigarettes Per Day: 10.0 e-Cigarette/Vaping Use: Never Used Second Hand Smoke Exposure: No Substance Use Type: Marijuana Advance Directives: No Advance Directives Information Provided: No Do you have a plan to hurt others: No Plan service: No Sexual orientation: did not discuss Physical Exam ED Vital Signs: Vital Signs - 24 hr 04/01/25 12:07 04/01/25 17:04 Temperature 98 F 98 F Pulse Rate 88 88 Respiratory Rate 18 18 Blood Pressure 106/69 106/69 Pulse Oximetry 98 Oxygen Delivery Method Room Air Room Air BMI result Body Mass Index 27.4 Const General: cooperative, healthy appearing, comfortable, no acute distress, well developed, alert, awake and Physically active Orientation/consciousness: patient oriented x3 HENMT Head: Yes normal to inspection, Yes No palpable skull fracture present, Yes normocephalic, Yes atraumatic and No abrasion Eyes General: appearance normal, both eyes and all related structures Neck Neck: Yes normal visual inspection, Yes full ROM, Yes no lymphadenopathy, Yes no meningeal signs, Yes trachea midline, Yes supple, No anterior neck swelling and No tender Chest Chest palpation & inspection: normal inspection of the chest and normal palpation of entire chest wall Resp Effort & Inspection: normal respiratory effort and able to speak in complete sentences Cardio Jugular venous distension: no JVD Heart sounds: S1 normal heart sound present and S2 normal heart sound present GI Inspection: Yes normal to inspection Palpation (GI): Soft to palpation, not firm, nontender, no guarding and not rigid General: Yes no CVA tenderness Back/Spine/Pelvis Back: no CVA tenderness and back tenderness (right upper back thoracic pain) Skin General skin exam: no rashes or lesions noted, elasticity normal and turgor normal Neuro General: patient oriented x3, gait normal, tone normal, moves all extremities, Normal light touch and pain sensation, no meningeal signs, no focal motor deficits and CN's II-XI intact bilaterally Extrem General: Yes normal to inspection, Yes full ROM and Yes capillary refill normal Psych Appearance: grossly normal, well kempt and not disheveled Course Course Course Narrative: RME: 34-year-old male presents to ED for upper back pain that is worse on movement. Patient denies any trauma, IV drug use, urinary/bowel incontinence or any immunocompromise diseases. Patient denies abdominal pain, nausea, vomiting or genitourinary symptoms. X-rays ordered. Mild thoracic lumbar tenderness on palpation Medical Decision Making Medical Decision Making MDM Narrative: 34 yold male presents to the ED upper back pain. patient states pmh of back upper spasm. Patient denies any recent trauma, fever, chills, immuno compromised diseases or any IV drug use. patient denies any immuocomprimised diseases. Opacity on thoracic x-rays only healed rib fracture on chest x-ray. Patient denies any recent trauma. Patient denies any urinary/bowel incontinence or any genitourinary symptoms. Patient denies any nausea vomiting fever or chills. Patient not suspecting epidural abscess, caudina syndrome, osteomylititis, kidney stones, pyeloneprhitits, PE, PR, or any other life threatening etioloogy. Differential Diagnosis Differential Diagnoses: The differential diagnosis associated with the presentation includes (Back pain) Admission/Observation Consideration of admission/observation: Escalation of care including admission/observation considered Independent Interpretation I performed an independent interpretation of an: Plain X-Ray Radiology Impression Discussion of test interpretation with radiology: I have reviewed the radiologist's reading. Independent Historian Clinical information obtained from an independent historian. History obtained from or confirmed by: Other (patient) Prescription Management I considered prescription management with: Pain Medication Discharge Plan Discharge Clinical Impression: Back pain Patient Disposition: Home, Self-Care Instructions: Back Pain (ED) Additional Instructions: Recommend follow-up with primary care provider. Return to the ED immediately for any worsening back pain, urinary/bowel incontinence, fever, chills, dysuria, hematuria, flank pain, paralysis of lower extremities, weakness, nausea, vomiting, any other concerning symptoms. EXAMINATION: XR THORACIC SPINE CLINICAL INFORMATION: back pain COMPARISON: None available. TECHNIQUE: 3 views of the thoracic spine were obtained. FINDINGS: S-shaped curvature of the thoracolumbar spine. No acute cortical disruption or malalignment. No lytic or blastic lesions. There is a 6 mm round opacity in the right upper hemithorax. XR/XR thoracic spine 3V IMPRESSION: Mild S-shaped scoliosis. 6 mm round opacity right upper hemithorax. Electronically signed by: Gian Alfonso MD 04/01/2025 01:24 PM EDT RP EXAMINATION: XR CHEST CLINICAL INFORMATION: abnormal thoracic spine, opacity seen COMPARISON: Thoracic spine radiograph dated earlier same day. Chest radiograph 11/08/2018 TECHNIQUE: 2 views of the chest were obtained. FINDINGS: The cardiac, hilar, and mediastinal contours are normal. There is a healing rib fracture with bony callus involving posterior lateral right sixth rib, accounting for the opacity seen on the thoracic spine examination. The lungs are clear. There is no pneumothorax or pleural effusion. There is no focal osseous or soft tissue abnormality. XR/XR chest 2V IMPRESSION: 1. Healing right posterior lateral fifth rib fracture, accounting for the opacity seen on the thoracic spine examination. 2. No active pulmonary disease. Electronically signed by: Branadn Sherman MD 04/01/2025 02:57 PM EDT RP [place] [id number] XRay Report Signed Patient: Enio Orozco MR#: [id number] : 1990 Acct:[id number] Age/Sex: 34 / M ADM Date: 04/01/25 Loc: HO.ED Attending Dr: Ordering Physician: Javon Hazel Date of Service: 04/01/25 Procedure(s): XR lumbar spine 2-3V Accession Number(s): [id number] cc: Javon Hazel; Nevaeh Salas MD~ EXAMINATION: XR LUMBOSACRAL SPINE CLINICAL INFORMATION: back pain COMPARISON: None available. TECHNIQUE: Three views of the lumbosacral spine. FINDINGS: No acute cortical disruption or malalignment. No lytic or blastic lesions. No metallic or radiopaque foreign body. XR/XR lumbar spine 2-3V IMPRESSION: No acute fracture or listhesis. Negative exam. Electronically signed by: Gian Alfonso MD 04/01/2025 01:23 PM EDT RP Prescriptions: New naproxen 500 mg tablet 500 mg PO BID PRN (Reason: pain) Qty: 14 0RF No Action nicotine 14 mg/24 hr Patch 24 Hour 14 mg transdermal DAILY Qty: 28 0RF trazodone 50 mg Tablet 50 mg PO BEDTIME PRN (Reason: Insomnia) Qty: 30 0RF cyanocobalamin (vitamin B-12) [Vitamin B-12] 1,000 mcg Tablet 1,000 mcg PO DAILY Qty: 30 0RF lithium carbonate 300 mg Capsule 300 mg PO BID Qty: 60 0RF Risperdal Consta 50 mg/2 mL suspension,extended rel recon 1 syringe IM Q2W Qty: 1 0RF haloperidol 5 mg Tablet 5 mg PO BID Qty: 60 0RF benztropine 1 mg Tablet 1 mg PO BID Qty: 30 0RF cyclobenzaprine 10 mg tablet 10 mg PO TID PRN (Reason: muscle spasm) Qty: 10 0RF ibuprofen 600 mg tablet 600 mg PO Q8H PRN (Reason: pain) Qty: 10 0RF lidocaine 5 % adhesive patch,medicated 1 patch topical DAILY Qty: 15 0RF Rx Instructions: leave on most painful area for up to 12 hrs Stand Alone Forms: Work/School Release Interventions: ED Discharge Assessment Last Done: 04/01/25 17:04 Discharge Date/Time: 04/01/25 17:04 Print Language: Greek
--- NOTE | 2025-04-01 16:51 | PC.NURSE ---
patient was seen and placed up for discharge by [facility] provider
[2025-04-01 17:04] VITALS: BP 106/69; PULSE 88; RESP 18; TEMP 36.6
--- OUTSIDE RECORDS SUMMARY | 2025-04-01 17:48 | XMS_ITS | Clinical Summary ---
Author Organization [facility] Address [address] [place] [address] Phone Care Team Providers Care Emanations Analysis Technician Name Role Phone Ralph Hadley Primary Care Provider [phone] Immunizations Immunization Administration Dates Next Due DTP 12/01/1995, 2,09/04/1991,07/02,03/22/1991 Hep B, ped/adol 02/23/2005, 4,11/04/2003,09/17 Hib (PRP-T) 04/15/1992, 1,07/02/1991,03/22 MMR 12/01/1995,04/15/1992 Meningococcal Conj (Menactra) MCV4P 12/12/2008 OPV 12/01/1995, 2,07/02/1991,03/22 Td (adult) (MBL), 2 Lf tetan us toxoid, PF, adsorbed 05/09/2003 Tdap 12/12/2008 Unknown Vaccine 11/28/1995,12/18/1991 Family History Relation Name Status Comments Father Alive Father: Alive a nd well, Diabetes mellitus Mother Alive Mother: Alive a nd well Social History Tobacco Use Types Packs/Day Years Used Date Smoking Tobacco: Never Assessed Sex and Gender Information Value Date Recorded Sex Assigned at Not on file Legal Sex Male 4:34 PM EDT Gender Identity Not on file Sexual Orientation Not on file Last Filed Vital Signs Vital Sign Reading Time Taken Comments Blood Pressure - - Pulse - - Temperature 36.2 ??C (97.1 ??F) 08/27/2010 12:00 AM E DT Respiratory Rate - - Oxygen Saturation - - Inhaled Oxygen Concentration - - Weight 62.6 kg (138 lb) 08/27/2010 12:00 AM EDT Height - - Body Mass Index - - Plan of Treatment Health Maintenance Due Date Last Done Comments Varicella Vaccines (1 of 2 - 13+ 2-dose series) 2003 DTaP,Tdap,and Td Vaccines (7 - Td or Tdap) 12/12/2018 12/12/2008, 05/09/2003, 12/01/1995, Additional history exists Influenza Vaccines (#1) 2024 COVID-19 Vaccine ( season) 2024 HIB Vaccines Completed 04/15/1992, 06/1991, 07/02/1991, Additional history exists IPV Vaccines Completed 12/01/1995, 05/28, 07/02/1991, Additional history exists MMR Vaccines Completed 12/01/1995, 04/15/1992 Hepatitis B Vaccines Completed 02/23/2005, 04/22/2004, 11/04/2003, Additional history exists Meningococcal Vaccine Completed 12/12/2008 HPV Vaccines Aged Out No longer eligi ble based on patient's age to complete this topic Hepatitis A Vaccines Aged Out No long er eligible based on patient's age to complete this topic Men B Vaccine Aged Out No longer elig ible based on patient's age to complete this topic Pneumococcal Vaccine Aged Out No long er eligible based on patient's age to complete this topic Care Teams Emanations Analysis Technician Relationship Specialty Start Date End Date Ralph Hadley [address] [place] [address] PCP - General 07/08/17
--- OUTSIDE RECORDS SUMMARY | 2025-04-01 17:48 | XMS_ITS | Encounter Summary ---
Author Organization [facility] Address [address] [place] [address] Phone Care Team Providers Care Part Time Receptionist Name Role Phone Ralph Hadley Primary Care Provider [phone] Encounter Details Date Type Department Care Team (Late st Contact Info) Description 07/14/2017 Conversion Encounter [facility] [place] [address] [place] [address] Social History Tobacco Use Types Packs/Day Years Used Date Smoking Tobacco: Never Assessed Sex and Gender Information Value Date Recorded Sex Assigned at Not on file Legal Sex Male 4:34 PM EDT Gender Identity Not on file Sexual Orientation Not on file documented as of this encounter Plan of Treatment Not on file documented as of this encounter Visit Diagnoses Not on filedocumented in this encounter Care Teams Part Time Receptionist Relationship Specialty Start Date End Date Ralph Hadley [address] [place] [address] PCP - General 07/08/17 documented as of this encounter
--- OUTSIDE RECORDS SUMMARY | 2025-04-01 17:48 | XMS_ITS | Encounter Summary ---
Author Organization [facility] Address [address] [place] [address] Phone Care Team Providers Care Stallion Manager Name Role Phone Ralph Hadley Primary Care Provider [phone] Encounter Details Date Type Department Care Team (Late st Contact Info) Description 03/23/2011 Documentation EM Family Medicine [address] [place] [address] Family Medicine, Physician [address] [place], [place] [phone] Social History Tobacco Use Types Packs/Day Years [...] on filedocumented in this encounter Care Teams Stallion Manager Relationship Specialty Start Date End Date Ralph Hadley [address] [place] [address] PCP - General 07/08/17 documented as of this encounter
--- OUTSIDE RECORDS SUMMARY | 2025-04-01 17:48 | XMS_ITS | Encounter Summary ---
Author Organization [facility] Address [address] [place] [address] Phone Care Team Providers Care Rock Mason Apprentice Name Role Phone Ralph Hadley Primary Care Provider [phone] Encounter Details Date Type Department Care Team (Late st Contact Info) Description 07/27/2011 Documentation EM Family Medicine [address] [place] [address] Family Medicine, Physician [address] [place], [place] [phone] Social History Tobacco Use Types Packs/Day Years [...] on filedocumented in this encounter Care Teams Rock Mason Apprentice Relationship Specialty Start Date End Date Ralph Hadley [address] [place] [address] PCP - General 07/08/17 documented as of this encounter
--- OUTSIDE RECORDS SUMMARY | 2025-04-01 17:48 | XMS_ITS | Encounter Summary ---
Author Organization [facility] Address [address] [place] [address] Phone Care Team Providers Care Litigation Manager Name Role Phone Ralph Hadley Primary Care Provider [phone] Encounter Details Date Type Department Care Team (Late st Contact Info) Description 04/21/2010 Documentation EM Family Medicine [address] [place] [address] Family Medicine, Physician [address] [place], [place] [phone] Social History Tobacco Use Types Packs/Day Years [...] on filedocumented in this encounter Care Teams Litigation Manager Relationship Specialty Start Date End Date Ralph Hadley [address] [place] [address] PCP - General 07/08/17 documented as of this encounter
--- OUTSIDE RECORDS SUMMARY | 2025-04-01 17:48 | XMS_ITS | Clinical Summary ---
Author Organization [employer] Address [address] [place] [address] [address] [place] [address] Care Team Providers Care Ferry Boat Captain Name Role Phone Unavailable Primary Care Provider Unavailabl e Active Problems Problem Noted Date Diagnosed Date Chronic paranoid schizophrenia 06/22/2012 Encounters Date Type Department Care Team Description 03/21/2025 Telephone [facility] [address] [place] [address] Kar Dias MD from Last 3 Months Immunizations Name Administration Dates Next Due DTP 12/01/1995, 2,09/04/1991,07/02/19 91,03/22/1991 Hep B, adult 11/02/2011, 5,08/23/2004,11/04/20 03 MMR 12/09/2011,12/01/1995,07/02/1991 Pneumococcal Polysaccharide PPSV23 06/13/2011 Social History Tobacco Use Types Packs/Day Years Used Date Smoking Tobacco: Never Assessed Sex and Gender Information Value Date Recorded Sex Assigned at Male 09/27/2022 10:21 AM EDT Legal Sex Male 10:21 AM EDT Gender Identity Male 09/27/2022 10:21 AM EDT Sexual Orientation Straight 09/27/2022 10 :21 AM EDT Last Filed Vital Signs Vital Sign Reading Time Taken Comments Blood Pressure 110/68 03/03/2022 12:04 AM EDT Pulse 64 03/03/2022 12:04 AM EDT Temperature - - Respiratory Rate - - Oxygen Saturation - - Inhaled Oxygen Concentration - - Weight 81.7 kg (180 lb 3.2 oz) 03/03/2022 12:04 AM EDT Height 175.3 cm (5' 9 ) 03/03/2022 12:04 AM EDT Body Mass Index 26.61 03/03/2022 12:04 AM EDT Plan of Treatment Health Maintenance Due Date Last Done Comments Depression Screening 1990 SDOH Screening 1990 Alcohol/Substance Use Screening 2002 Tobacco Screening 2002 Family Planning (PISQ) 2005 Hepatitis C Screening 2008 DTaP/Tdap/Td Vaccines (8 - Td or Tdap) 12/09/2021 12/09/2011, 12/12/2008, 05/09/2003, Additional history exists COVID-19 Vaccine ( season) 2024 05/18/2021, 03/20/2021 Influenza Vaccine (#1) 2024 9, 01/22/2019, 11/17/2016, Additional history exists Zoster Vaccines (1 of 2) 2040 RSV Patients and Patients Aged 60 years or older (1 - 1-dose 75+ series) 2065 HIB Vaccines Completed 04/15/1992, 06/1991, 07/02/1991, Additional history exists IPV Vaccines Completed 12/01/1995, 05/28, 07/02/1991, Additional history exists Meningococcal Vaccine Aged Out 12/12/2008, 009 No longer eligible based on patient's age to complete this topic Pneumococcal Vaccine: Pediatrics (0 to 5 Years) and At-Risk Patients (6 to 49) Years) Aged Out 06/13/2011 No longer eligible based on patient's age to complete this topic Hepatitis A Vaccines Aged Out 11/02/2011 No long er eligible based on patient's age to complete this topic Hepatitis B Vaccines Completed 12/09/2011, 11/02/2011, 02/23/2005, Additional history exists HIV Screening Completed 06/19/2021 HPV Vaccines Aged Out No longer eligi ble based on patient's age to complete this topic RSV under 20 months Aged Out No longe r eligible based on patient's age to complete this topic Rotavirus Vaccines Aged Out No longer eligible based on patient's age to complete this topic Procedures Procedure Name Priority Date/Time Associated Diagnosis Comments HIV 1/2 ANTIGEN/ANTIBODY, FOURTH GENERATION W/RFL Routine 06/19/2021 3:46 PM EDT from Last 3 Months or Most Recently Relevant to Health Maintenance Results * HIV 1/2 ANTIGEN/ANTIBODY,FOURTH GENERATION W/RFL (06/19/2021 3:46 PM EDT) Pathologist [facility] HIV-1/2 ANTIGEN AND ANTIBODIES, 4TH GENERATION W/ REFLEX NON-REACT DARVIN NON-REACT DARVIN [facility] Comment: HIV-1 antigen and HIV-1/HIV-2 antibodies were not detected. There is no laboratory evidence of HIV infection. ?? PLEASE NOTE: This information has been disclosed to you from records whose confidentiality may be protected by state law. ??If your state requires such protection, then the state law prohibits you from making any further disclosure of the information without the specific written consent of the person to whom it pertains, or as otherwise permitted by law. A general authorization for the release of medical or other information is NOT sufficient for this purpose. ? For additional information please refer to http://education.[employer]/faq/NAU157 (This link is being provided for informational/ educational purposes only.) ? The performance of this assay has not been clinically validated in patients less than 2 years old. ?? 06/19/2021 3:46 PM EDT Nevaeh Good MD LAB BLOOD ORDERABLES Final Result [facility] [address] from Last 3 Months or Most Recently Relevant to Health Maintenance Insurance [facility] ONE CARE < 65 [place] [id number]
--- OUTSIDE RECORDS SUMMARY | 2025-04-01 17:48 | XMS_ITS | Encounter Summary ---
Author Organization [facility] Address [address] [place] [address] Phone Care Team Providers Care Territory Development Manager Name Role Phone Ralph Hadley Primary Care Provider [phone] Encounter Details Date Type Department Care Team (Late st Contact Info) Description 07/27/2011 Documentation EM Family Medicine [address] [place] [address] Family Medicine, Physician [address] [place], [place] [phone] Social History Tobacco Use Types Packs/Day Years [...] on filedocumented in this encounter Care Teams Territory Development Manager Relationship Specialty Start Date End Date Ralph Hadley [address] [place] [address] PCP - General 07/08/17 documented as of this encounter
== END 2025-04-01 17:04 | disposition home or self-care (01) ==
PROVIDERS: Emergency Provider Emergency Medicine; PCP Internal Medicine
DX: M62.830 Muscle spasm of back (principal); R07.89 Other chest pain; M54.6 Pain in thoracic spine; M54.50 Low back pain, unspecified; F17.210 Nicotine dependence, cigarettes, uncomplicated
CPT/HCPCS: 71046; 72072; 72100; 99282; 99283

== ENCOUNTER → 2025-04-01 12:27 | Outpatient (BNV) | payer OTHER, SELFPAY | PROVIDERS: PCP Internal Medicine; Visit Provider Radiology Diagnostic Radiology | DX: M54.50 Low back pain, unspecified (principal); M54.6 Pain in thoracic spine; R93.89 Abnormal findings on diagnostic imaging of other specified body structures | CPT/HCPCS: 71046; 72072; 72100 ==

== ENCOUNTER 2025-10-05 10:07 | Outpatient (REF) | payer OTHER, SELFPAY ==
--- OUTSIDE RECORDS SUMMARY | 2025-10-05 10:11 | XMS_ITS | Encounter Summary ---
Author Organization [employer] Address [address] [place] [address] [place] [address] Care Team Providers Care Relations Specialist Name Role Phone Unavailable Primary Care Provider Unavailabl e Reason for Visit * Reason Onset Date Comments CHW - New Patient Assistance 09/23/2025 Encounter Details Date Type Department Care Team (Late Contact Info) Description 09/23/2025 Telephone [facility] [address] [place] [address] Kar Dias MD [address] [place] [address] CHW - New Patient Assistance Social History Tobacco Use Types Packs/Day Years Used Date Smoking Tobacco: Never Assessed Sex and Gender Information Value Date Recorded Sex Assigned at Male 09/27/2022 10:21 AM EDT Legal Sex Male 10:21 AM EDT Gender Identity Male 09/27/2022 10:21 AM EDT Sexual Orientation Straight 09/27/2022 10 :21 AM EDT documented as of this encounter Miscellaneous Notes * Telephone Encounter - Padmini Govea - 09/23/2025 2:28 PM EDT Tc from Edie Villaseñor at [facility] pt respiratory care assistant requesting to schedule pt DIRECTOR FIELD SERVICES apt . She says due to pt mental diagnosis he does not answer so she does not think he seen call in April. Contact Edie santos [phone] documented in this encounter Plan of Treatment Upcoming Encounters Date Type Department Care Team (Late Contact Info) Description 11/13/2025 9:15 AM EST Office Visit [facility] [address] [place] [address] Nevaeh Nice MD [address] [place], [place] [phone] documented as of this encounter Visit Diagnoses Not on filedocumented in this encounter
--- OUTSIDE RECORDS SUMMARY | 2025-10-05 10:11 | XMS_ITS | Encounter Summary ---
Author Organization [employer] Address [address] [place] [address] Care Team Providers Care [facility] Worker Name Role Phone Unavailable Primary Care Provider Unavailabl e Reason for Visit * Reason Onset Date Comments MEDICAL SUPPLY TECHNICIAN 09/30/2025 Encounter Details Date Type Department Care Team (Late st Contact Info) Description 09/30/2025 Telephone [facility] [address] [place] [phone] Nevaeh Salas MD [address] [place] [address] [phone] MEDICAL SUPPLY TECHNICIAN Social History Tobacco Use Types Packs/Day Years Used Date Smoking Tobacco: Never Assessed Sex and Gender Information Value Date Recorded Sex Assigned at Male 09/27/2022 10:21 AM EDT Legal Sex Male 10:21 AM EDT Gender Identity Male 09/27/2022 10:21 AM EDT Sexual Orientation Straight 09/27/2022 10 :21 AM EDT documented as of this encounter Miscellaneous Notes * Telephone Encounter - Jessica Scott - 09/30/2025 1:01 PM EST Patient walked in, interested in becoming a MEDICAL SUPPLY TECHNICIAN/ Patient was given MEDICAL SUPPLY TECHNICIAN line and advised to call. Patient chart was updated. documented in this encounter Plan of Treatment Upcoming Encounters Date Type Department Care Team (Late st Contact Info) Description 11/13/2025 9:15 AM EST Office Visit [facility] [address] [place] [address] [phone] Nevaeh Nice MD [address] [place] [address] documented as of this encounter Visit Diagnoses Not on filedocumented in this encounter
--- OUTSIDE RECORDS SUMMARY | 2025-10-05 10:11 | XMS_ITS | Clinical Summary ---
Author Organization [employer] Address [address] [place] [address] [address] [place] [address] Care Team Providers Care Wood Stock Blank Handler Name Role Phone Unavailable Primary Care Provider Unavailabl e Active Problems Problem Noted Date Diagnosed Date Chronic paranoid schizophrenia (CMS/HCC) 012 Encounters Date Type Department Care Team Description 09/30/2025 Telephone [facility] [address] [place] [address] Nevaeh Salas MD BUCKLE STRAP PUNCHER 09/23/2025 Telephone [facility] [address] [place] [address] Kar Dias MD CHW - New Patient Assistance from Last 3 Months Immunizations Immunization Administration Dates Next Due DTP 12/01/1995, 2,09/04/1991,07/02/19 [...] 03/03/2022 12:04 AM EDT Plan of Treatment Upcoming Encounters Date Type Department Care Team (Late st Contact Info) Description 11/13/2025 9:15 AM EST Office Visit [facility] [address] [place], [place] [phone] Nevaeh Nice MD [address] [place], [place] [phone] Health Maintenance Due Date Last Done Comments Depression Screening 1990 SDOH Screening 1990 Disability Screening 1990 Alcohol/Substance Use Screening 2002 Tobacco Screening 2002 Family Planning (PISQ) 2005 HPV Vaccines (1 - Male 3-dose series) 2005 Hepatitis C Screening 2008 DTaP/Tdap/Td Vaccines (8 - Td or Tdap) 12/09/2021 12/09/2011, 12/12/2008, 05/09/2003, Additional history exists COVID-19 Vaccine (3 - season) 2025 05/18/2021, 03/20/2021 Influenza Vaccine (#1) 2025 9, 01/22/2019, 11/17/2016, Additional history exists Zoster [...] Years) and At-Risk Patients (6 to 49) Years Aged Out 06/13/2011 No longer eligible based on patient's age to complete this topic Hepatitis A Vaccines Aged Out 11/02/2011 No long er eligible based on patient's age to complete this topic Hepatitis B Vaccines Completed 12/09/2011, 11/02/2011, 02/23/2005, Additional history exists HIV Screening Completed 06/19/2021 Meningococcal B Vaccine Aged Out No l onger eligible based on patient's age to complete [...] ANTIGEN/ANTIBODY,FOURTH GENERATION W/RFL (06/19/2021 3:46 PM EDT) HIV-1/2 ANTIGEN AND ANTIBODIES, 4TH GENERATION W/ REFLEX NON-REACT DARVIN NON-REACT DARVIN [facility] Comment: HIV-1 antigen and HIV-1/HIV-2 antibodies were not detected. There is no laboratory evidence of HIV infection. PLEASE NOTE: This information has been disclosed to you from records whose confidentiality may be protected by state law. If your state requires such protection, then the state law prohibits you from making any further disclosure of the information without the specific written consent of the person to whom it pertains, or as otherwise permitted by law. A general authorization for the release of medical or other information is NOT sufficient for this purpose. For additional information please refer to http://education.[employer]/faq/IRB788 (This link is being provided for informational/ educational purposes only.) The performance of this assay has not been clinically validated in patients less than 2 years old. 06/19/2021 3:46 PM EDT Nevaeh Good MD LAB BLOOD ORDERABLES Final Result [facility] [address] [place] [phone], from Last 3 Months or Most Recently Relevant to Health Maintenance Insurance [facility] ONE CARE < 65 [place] [id number]
--- OUTSIDE RECORDS SUMMARY | 2025-10-05 10:11 | XMS_ITS | Data Portability ---
Author Organization [facility] Address [address] [place] [address] Care Team Providers Care Net Developer Architect Name Role Phone HIM CCA OTHER Assessment Encounter Date Assessment Date Assessment LastModified by Organization Details LastModified Time 02/12/2025 02/12/2025 Impression: 34yo/m with hx of schizophrenia with several skin lesions. Patient is 34yo/m, no other known chronic medical conditions, no other known dermatologic diagnoses, states has noticed several areas on skin of darkened skin, states occasionally he will try to pop them. Requested evaluation for lesions today. For medic in home patient is awake, alert, well appearing, in no distress. He has no systemic symptoms of illness, no fevers/chills, nausea/vomiting, weakness or fatigue. States he is unclear how long he may have had these lesions and if they have been diagnosed previously. On posterior legs he has several areas of hyperpigmented skin, some of which he has tried to pop . There is no surrounding erythema, warmth, tenderness. There is no purulent drainage or discharge. No overlying fluctuance or masses. Skin lesions are flat without underlying component per medic. No other type of skin lesions today. Patient denies other ROS. Plan: Unclear etiology of patient's skin lesions at this time, there are no signs or symptoms of an obvious infection such as cellulitis, myositis, abscess, necrotizing soft tissue infection. They are not clearly cysts, as there are no underlying components. They do not appear to be related to an acute allergic reaction. Advised patient not try to manipulate lesions any further as this will introduce bacteria and increase risk of infection. He will need PCP evaluation and referral to dermatology as needed for definitive diagnosis. He feels safe remaining at home and following up with outpatient providers. Instructed to seek care immediately with any acute worsening or change in symptoms or signs of infection which he understands. Primary care, consider patient would benefit from in person PCP appointment to evaluate lesions and refer to dermatology as necessary for definitive diagnosis. Disposition: We discussed the diagnostic uncertainty of home visits and the risk associated with this. In this case, the patient and I felt this to be an acceptable and reasonable amount of risk given the benefit of avoiding an ED visit. We discussed the need to seek care urgently/emergent ly in the setting of any new or worsening serious symptoms Not available 02/12/2025 12:41:22 Plan of Treatment Reminders Order Date Submit Date Provider Last Modified By Organization Details Last Modified Time Details Appointments None record ed. Lab None record ed. Referral None record ed. Procedures None record ed. Surgeries None record ed. Imaging None record ed. Medication Orders None record ed. Patient TargetsNo targets recorded. Patient InstructionsNo instructions recorded. Reason for Referral None Reported. Medical Equipment None Reported. Allergies No known drug allergies Medications Name Sig Start Date Stop Date Status Note LastModified by Organization Details LastModified Time cyclobenzapr ine 10 mg tablet active Not Available Not Available Not Available haloperidol 5 mg tablet TAKE 1 TABLET BY MOUTH TWICE A DAY active Not Available Not Available No t Available trazodone 50 mg tablet TAKE 1 TABLET BY MOUTH EVERY NIGHT NEEDED active Not Available Not Available No t Available lithium carbonate 300 mg capsule TAKE 1 CAPSULE BY MOUTH TWICE A DAY active Not Available Not Available No t Available benztropine 1 mg tablet TAKE 1 TABLET BY MOUTH TWICE A DAY active Not Available Not Available No t Available ibuprofen 600 mg tablet active Not Available Not Available Not Available risperidone microspheres ER 50 mg/2 mL intramuscula r susp,ext release INJECT 1 SYRINGE INTRAMUSCUL CHAYO EVERY TWO WEEKS active Not Available Not Available No t Available Vitals Date Recorded Oxygen saturation Oxygen saturation in Arterial blood by Pulse oximetry Body temperature Respiratory rate Heart rate Systolic And Diastolic Provider Name and Address Organization Details Last Updated DateTime 97 % 97 % 97.6 [degF] 16 /min 72 /min 112/61 mm[Hg] Not Available [facility] - production 12:24:43 Social History None recorded. Functional Status None recorded. Mental Status None recorded. Family History Nothing Reported. Medical History No medical history recorded. Past Encounters Encounter ID Performer Location Encounter Start Date Encounter Closed Date Diagnosis/Indication Diagnosis SNOMED-CT Code Diagnosis ICD10 Code Diagnosis IMO Codes Diagnosis Note [id number] Brandan Staley MD [facility] [address] [place] [address] 02/12/2025 12:24:32 02/12/2025 19:40:11 Skin lesion 71963532 L98.9 Health Concerns Section Related Observation LastModified by Organization Detai ls LastModified Time None Recorded Concern Status LastModified by Organization Details LastModified Time None Recorded Advance Directives Directive None Recorded Payers Insurance Date Sequence Insurance Name Policy Number Policy Cardenas Covered Member ID Cardenas Member ID Guarantor Name 02/12/2025 1 [facility] - DOS ON OR AFTER 2023 - DUAL ELIGIBLE - [facility] [employer] AND [employer] (MEDICARE REPLACEMENT/ADV ANTAGE - HMO) Enio Orozco [id number] Enio Orozco Notes Date Note Type Note Provider Name and Address Organization Details Recorded Time 02/12/2025 text/html ROS as noted in the [facility] Nurse Triage Notes (Evelyn Lauren): Reason For Request: Patient has Cysts on the back of her legs with de anda from poping, and painful, wants it checked out. Patient Reports: Abscess Denies: Rausch Flash, circumferential rausch Rausch reported with black tissue to the area Open skin area after a fall with uncontrolled bleeding Abscess/infection with streaking noted, presence of fever or without Chief Complaints: Wound Care PMH: Schizophrenia PMH Reviewed at 02/12/2025:58 Allergies Reviewed at 02/12/2025:58 Comments: Patient reports cyst to gluteal fold and bilateral posterior lower extremities. No known fever/chills. States he has history of frequent cysts which is will squeeze and drain. Not currently on any antibiotics. Education provided on the response time and the member was advised to monitor reported s/s and seek emergency treatment if needed. ..................... ..................... ..................... ..................... ..................... ..................... ............... Mold Inspector Note From Tho Lamb: This 34-year-old male with a history including but not limited to schizophrenia requested a visit today to address multiple cysts on the backs of both of his upper legs. Patient states he's not sure how long they've been there and states he is popped them before but does not recall what type of drainage came out. Patient denies any pain or discomfort as well as fevers, nausea, vomiting, diarrhea. Patient presents awake and alert, in no acute distress and speaking full sentences. His vital signs are reasonably stable and he is afebrile. Nonfocal neurological exam. Normal gait. Lungs are clear throughout auscultation. Abdomen is soft, nontender, nondistended. Patient has eight to 10 cysts on the backs of both of his legs and buttocks, no erythema, edema or warmth. The areas seem to be superficial, no palpable fluid under the skin. No lower extremity edema. We discussed the diagnostic uncertainty of home visits and the risk associated with this. In this case, the patient and I felt this to be an acceptable and reasonable amount of risk given the benefit of avoiding an ED visit. I recommend that in the future he does not pop them. I also recommend that he follows up with his primary care physician to request a possible dermatology referral. I advised him to call back/present to [facility]/ED if the areas become red, hot or he spikes a fever. The patient was given the opportunity to ask questions and is agreeable to this plan. ..................... ..................... ..................... ..................... ..................... ..................... ............... [facility] Consulted: Brandan Staley ..................... ..................... ..................... ..................... ..................... ..................... ............... Disposition: Fulfilled Brandan Staley MD [address] [facility],[address], [place], [address], CAROL - DENNIS HEBERT 02/12/2025 12:41:30
--- OUTSIDE RECORDS SUMMARY | 2025-10-05 10:11 | XMS_ITS | Encounter Summary ---
Author Organization [facility] Address [address] [place] [address] Phone Care Team Providers Care Animal Sitter Name Role Phone Ralph Hadley Primary Care Provider [phone] Encounter Details Date Type Department Care Team (Late st Contact Info) Description 07/27/2011 Documentation EM Family Medicine [address] [place] [address] Family Medicine, Physician [address] [place], [place] [phone] Social History Tobacco Use Types Packs/Day Years [...] on filedocumented in this encounter Care Teams Animal Sitter Relationship Specialty Start Date End Date Ralph Hadley [address] [place] [address] PCP - General 07/08/17 documented as of this encounter
--- OUTSIDE RECORDS SUMMARY | 2025-10-05 10:12 | XMS_ITS | Encounter Summary ---
Author Organization [facility] Address [address] [place] [address] Phone Care Team Providers Care Infection Control Specialist Name Role Phone Ralph Hadley Primary Care Provider [phone] Encounter Details Date Type Department Care Team (Late st Contact Info) Description 07/14/2017 Conversion Encounter [facility] [address] [place] [address] Social History Tobacco Use Types Packs/Day Years [...] on filedocumented in this encounter Care Teams Infection Control Specialist Relationship Specialty Start Date End Date Ralph Hadley [address] [place] [address] PCP - General 07/08/17 documented as of this encounter
--- OUTSIDE RECORDS SUMMARY | 2025-10-05 10:12 | XMS_ITS | Encounter Summary ---
Author Organization [facility] Address [address] [place] [phone] Phone Care Team Providers Care Mine Foreman Name Role Phone Ralph Hadley Primary Care Provider [phone] Encounter Details Date Type Department Care Team (Late st Contact Info) Description 07/27/2011 Documentation EM Family Medicine [address] [place] [address] Family Medicine, Physician [address] [place], [place] [phone] Social History Tobacco Use Types Packs/Day Years [...] on filedocumented in this encounter Care Teams Mine Foreman Relationship Specialty Start Date End Date Ralph Hadley [address] [place] [address] PCP - General 07/08/17 documented as of this encounter
--- OUTSIDE RECORDS SUMMARY | 2025-10-05 10:12 | XMS_ITS | Encounter Summary ---
Author Organization [facility] Address [address] [place] [address] Phone Care Team Providers Care Inspector Firearms Name Role Phone Ralph Hadley Primary Care Provider Encounter Details Date Type Department Care Team (Late st Contact Info) Description 04/21/2010 Documentation EM Family Medicine [address] [place] [address] Family Medicine, Physician [address] [place], [place] [phone] Social History Tobacco Use Types Packs/Day Years [...] on filedocumented in this encounter Care Teams Inspector Firearms Relationship Specialty Start Date End Date Ralph Hadley [address] [place] [address] PCP - General 07/08/17 documented as of this encounter
--- OUTSIDE RECORDS SUMMARY | 2025-10-05 10:12 | XMS_ITS | Encounter Summary ---
Author Organization [facility] Address [address] [place] [address] Phone Care Team Providers Care Machine Cementer Name Role Phone Ralph Hadley Primary Care Provider [phone] Encounter Details Date Type Department Care Team (Late st Contact Info) Description 03/23/2011 Documentation EM Family Medicine [address] [place] [address] Family Medicine, Physician [address] [place], [place] [phone] Social History Tobacco Use Types Packs/Day Years [...] on filedocumented in this encounter Care Teams Machine Cementer Relationship Specialty Start Date End Date Ralph Hadley [address] [place] [address] PCP - General 07/08/17 documented as of this encounter
--- OUTSIDE RECORDS SUMMARY | 2025-10-05 10:12 | XMS_ITS | Clinical Summary ---
Author Organization [facility] Address [address] [place] [address] Phone Care Team Providers Care Algology Teacher Name Role Phone Ralph Hadley Primary Care Provider [phone] Immunizations Immunization Administration Dates Next Due DTP [...] - - Pulse - - Temperature 36.2 C (97.1 F) 08/27/2010 12:00 AM EDT Respiratory Rate - - Oxygen Saturation - - Inhaled Oxygen Concentration - - Weight 62.6 kg (138 lb) 08/27/2010 12:00 AM EDT Height - - Body Mass Index - - Plan of Treatment Health Maintenance Due Date Last Done Comments Varicella Vaccines (1 of 2 - 13+ 2-dose series) 2003 HPV Vaccines (1 - 3-dose SCDM series) 2017 DTaP,Tdap,and Td Vaccines (7 - Td or Tdap) 12/12/2018 12/12/2008, 05/09/2003, 12/01/1995, Additional history exists Influenza Vaccines (#1) 2025 COVID-19 Vaccine ( - 2024- season) 2025 HIB Vaccines Completed 04/15/1992, 06/1991, 07/02/1991, Additional history exists IPV Vaccines Completed 12/01/1995, 05/28, 07/02/1991, Additional history exists MMR Vaccines Completed 12/01/1995, 04/15/1992 Hepatitis B Vaccines Completed 02/23/2005, 04/22/2004, 11/04/2003, Additional history exists Meningococcal Vaccine Completed 12/12/2008 Hepatitis A Vaccines Aged Out No long er eligible based on patient's age to complete this topic Men B Vaccine Aged Out No longer elig ible based on patient's age to complete this topic Pneumococcal Vaccine Aged Out No long er eligible based on patient's age to complete this topic Care Teams Algology Teacher Relationship Specialty Start Date End Date Ralph Hadley [address] [place] [address] PCP - General 07/08/17
[2025-10-05 10:28] LABS: MANUAL DIFF FLAG NO
[2025-10-05 11:42] LABS: Hematocrit 42.3 % (42.0-52.0); Hemoglobin 14.1 g/dl (14.0-18.0); Imm Gran Abs Auto 0.03 X10*3/uL (0.00-0.03); Imm Gran Pct Auto 0.4 % (0.0-0.4); Lymphocytes Absolute Auto 2.4 X10*3/uL (1.2-4.9); Mean Corpuscular HGB Conc 33.3 g/dl (31.0-36.0); Mean Corpuscular Hemoglobin 31.5 pg (27.0-33.0); Mean Corpuscular Volume 94.6 fL (80.0-98.0); NRBC Abs Auto 0.000 X10*3/uL (0.0-0.012); NRBC Pct Auto 0.0 /100WBC (0.0-0.2); Platelet Count 194 X10*3/uL (160-400); Red Blood Count 4.47 X10*6/uL (4.60-5.80); White Blood Count 8.3 X10*3/uL (4.8-10.8)
[2025-10-05 12:05] LABS: Lithium 0.75 mmol/L (0.60-1.20)
[2025-10-05 12:17] LABS: Alanine Aminotransferase 17 U/L (0-40); Albumin Level 4.9 g/dL (3.5-5.0); Alkaline Phosphatase 83 U/L (39-117); Anion Gap 15 (12-20); Aspartate Amino Transferase 22 U/L (5-37); Blood Urea Nitrogen 6 mg/dL (9-16); Calcium 9.7 mg/dL (8.4-10.2); Carbon Dioxide 23 mmol/L (22-29); Chloride 108 mmol/L (96-108); Estimated Glomerular Filt Rate > 60; Potassium 4.3 mmol/L (3.3-5.1); Sodium 142 mmol/L (135-145); Total Protein 7.2 g/dL (6.5-8.0)
[2025-10-05 12:36] LABS: Thyroid Stimulating Hormone 1.45 uIU/mL (0.32-4.0)
== END 2025-10-05 10:08 | disposition home or self-care (01) ==
LOC: HO.LAB 10:07
PROVIDERS: Visit Provider Psychiatry & Neurology Psychiatry
DX: Z79.899 Other long term (current) drug therapy (principal)
CPT/HCPCS: 36415; 80053; 80178; 82306; 84443; 85025

== ENCOUNTER 2025-11-13 10:30 | Outpatient (REF) | payer OTHER, SELFPAY ==
--- OUTSIDE RECORDS SUMMARY | 2025-11-13 09:15 | XMS_ITS | Encounter Summary ---
Author Organization [employer] Address [address] [place] [address] 7 [place] [address] Care Team Providers Care Dietary Supervisor Name Role Phone Nevaeh Nice MD Primary Care Pro vider Encounter Details Date Type Department Care Team (Latest Contact Info) Description 11/13/2025 9:15 AM EST Office Visit [facility] [address] [place] [phone] Nevaeh Nice MD [address] [place] [address] Annual physical exam (Primary Dx); Chronic paranoid schizophrenia (CMS/HCC) (HCC); Encounter for immunization Social History Tobacco Use Types Packs/Day Years Used Date Smoking Tobacco: Every Day Cigarettes Comments:Started smoking at 18 y of age until now -10 cig a day Smokes for 16 years Alcohol Answer Date Recorded How often do you have a drink containing alcohol ? 1 11/13/2025 How many drinks containing a lcohol do you have on a typical day when you are drinking? 0 11/13/2025 How often do you have six or more drinks on one occasion? 0 11/13/2025 Depression Answer Date Recorded Patient Health Questionnaire-9 Score 0 11/13/2025 Patient Health Questionnaire-9 Score 0 11/13/2025 Last PHQ-9: Questionnaire Data Not on file 1 01/14/2025 Housing Stability Answer Date Recorded What is your housing situation today? I have peg fitzgerald 11/13/[address] you li ve. Do you have problems with any of the following? None of the above 11/13/2025 Food Insecurity Answer Date Recorded Within the past 12 months, y ou worried that your food would run out before you got money to buy more: Never True 11/13/2025 Within the past 12 months,th e food you bought just didn't last and you didn't have enough money to get more: Never True Transportation Answer Date Recorded In the past 12 months, has l ack of transportation kept you from medical appts, meetings, work or from getting things needed for daily living? No 11/13/2025 Utilities Answer Date Recorded In the past 12 months, has t he electric, gas, oil or water company threatened to shut off services in your home? No 11/13/2025 Depression Answer Date Recorded Patient Health Questionnaire-2 Score 0 11/13/2025 Internet Access Answer Date Recorded Internet Access Q1 Yes 11/13/2025 Internet Access Q2 Not on file 11/13/2025 Sex and Gender Information Value Date Recorded Sex Assigned at Male 09/27/2022 10:21 AM EDT Legal Sex Male 10:21 AM EDT Gender Identity Male 09/27/2022 10:21 AM EDT Sexual Orientation Straight 09/27/2022 10 :21 AM EDT documented as of this encounter Last Filed Vital Signs Vital Sign Reading Time Taken Comments Blood Pressure 100/64 11/13/2025 9:19 AM EST Pulse 80 11/13/2025 9:19 AM EST Temperature 36.3 C (97.3 F) 11/13/2025 9:19 AM EST Respiratory Rate 20 11/13/2025 9:19 AM EST Oxygen Saturation 96% 11/13/2025 9:19 AM EST Inhaled Oxygen Concentration - - Weight 68.5 kg (151 lb) 11/13/2025 9:19 AM EST Height 172.7 cm (5' 8 ) 11/13/2025 9:19 AM EST Body Mass Index 22.96 11/13/2025 9:19 AM EST documented in this encounter Functional Status * Over the past 2 weeks, how often have you been bothered by any of the following problems? Question Answer Date of Assessment Author Patient Health Questionnaire -2 Score 0 11/13/2025 10:33 AM EST Michaela Rubin MA * Little interest or pleasure in doing things Answer Date of Assessment Author Not at all 11/13/2025 10:33 AM Michaela Velásquez MA * Feeling down, depressed, or hopeless Answer Date of Assessment Author Not at all 11/13/2025 10:33 AM Michaela Velásquez MA * Trouble falling or staying asleep, or sleeping too much Answer Date of Assessment Author Not at all 11/13/2025 10:33 AM Michaela Velásquez MA * Feeling tired or having little energy Answer Date of Assessment Author Not at all 11/13/2025 10:33 AM Michaela Velásquez MA * Poor appetite or overeating Answer Date of Assessment Author Not at all 11/13/2025 10:33 AM Michaela Velásquez MA * Feeling bad about yourself - or that you are a failure or have let yourself or your family down Answer Date of Assessment Author Not at all 11/13/2025 10:33 AM Michaela Velásquez MA * Trouble concentrating on things, such as reading the newspaper or watching television Answer Date of Assessment Author Not at all 11/13/2025 10:33 AM Michaela Velásquez MA * Moving or speaking so slowly that other people could have noticed? Or the opposite - being so fidgety or restless that you have been moving around a lot more than usual. Answer Date of Assessment Author Not at all 11/13/2025 10:33 AM Michaela Velásquez MA * Thoughts that you would be better off or hurting yourself in some way Answer Date of Assessment Author Not at all 11/13/2025 10:33 AM Michaela Velásquez MA * Patient Health Questionnaire-9 Score Answer Date of Assessment Author 0 11/13/2025 10:33 AM Michaela Velásquez MA * Over the last 2 weeks, how often have you been bothered by any of the following problems? Question Answer Date of Assessment Author Feeling nervous, anxious, or on edge 0 11/13/2025 10:33 AM Michaela Velásquez MA Not being able to stop or co ntrol worrying 0 11/13/2025 10:33 AM Michaela Velásquez MA Worrying too much about diff erent things 1 11/13/2025 10:33 AM Michaela Velásquez MA Trouble relaxing 0 11/13/2025 10:33 AM Michaela Velásquez MA Being so restless that it is hard to sit still 0 11/13/2025 10:33 AM Michaela Velásquez MA Becoming easily annoyed or irritable 0 11/13/2025 10:33 AM Michaela Velásquez MA Feeling afraid as if somethi ng awful might happen 0 11/13/2025 10:33 AM Michaela Velásquez MA JOSE DAVID-7 Total Score 1 11/13/2025 10:33 AM Michaela Velásquez MA documented as of this encounter Plan of Treatment Upcoming Encounters Date Type Department Care Team (Late st Contact Info) Description 02/07/2026 2:00 PM EDT Office Visit [facility] [address] [place] [address] Nevaeh Nice MD [address] [place] [address] Scheduled Orders Name Type Priority Associated Diagnoses Orde r Schedule Chlamydia/Trichomonas/Neiss eria gonorrhoeae, PCR, Urine Lab Routine Annual physical exam Ordered: 11/13/2025 Comprehensive Metabolic Panel Lab Routine Annual physical exam Expected: 11/13/2025 (Approximate), Expires: 11/13/2026 Hepatitis B Core Antibody, Total Lab Routine Annual physical exam Expected: 11/13/2025 (Approximate), Expires: 11/13/2026 Hepatitis B Surface Antibody, Qualitative Lab Routine Annual physical exam Expected: 11/13/2025 (Approximate), Expires: 11/13/2026 Hepatitis B surface antigen, EIA Lab Routine Annual physical exam Expected: 11/13/2025 (Approximate), Expires: 11/13/2026 Hepatitis C Antibody with Reflex to HCV, RNA, Quantitative, Real-Time PCR Lab Routine Annual physical exam Expected: 11/13/2025 (Approximate), Expires: 11/13/2026 HIV-1/2 Antigen and Antibodies, Fourth Generation, with Reflexes Lab Routine Annual physical exam Expected: 11/13/2025 (Approximate), Expires: 11/13/2026 Lipid Panel, Standard Lab Routine Annual physical exam Expected: 11/13/2025 (Approximate), Expires: 11/13/2026 Syphilis Screen Lab Routine Annual physical exam Expected: 11/13/2025 (Approximate), Expires: 11/13/2026 TSH with Reflex to Free T4 Lab Routine Annual physical exam Expected: 11/13/2025 (Approximate), Expires: 11/13/2026 Vitamin D, 25-Hydroxy, Total, Immunoassay Lab Routine Annual physical exam Expected: 11/13/2025 (Approximate), Expires: 11/13/2026 documented as of this encounter Procedures Procedure Name Priority Date/Time Associated Diagnosis Comments CBC WITH AUTO DIFFERENTIAL Routine 11/13/2025 10:35 AM EST Annual physical exam HEMOGLOBIN A1C Routine 11/13/2025 10:35 AM EST Annual physical exam documented in this encounter Results * Hemoglobin A1c (11/13/2025 10:35 AM EST) Hemoglobin A1c 4.9 <6.0 % [facility] Comment:Hemoglobin A1C Refer ence Range Adults: 4.8 - 6.0 % Non diabetic: < 6.0 % Goal: < 7.0 %Additional Action Suggested: > 8.0 %Note: Hemoglobin A1c results are invalid for patients with abnormal amounts of HbF. Blood transfusions may impact the HbA1c concentration in the patient sample. Estimated Average Glucose 94 mg/dL [facility] Comment:eAG = Estimated ave rage glucose which is %A1C expressed asaverage glucose, using the formula of the R8S-TdhiresJvzikti Glucose study (ADAG), Diabetes Care, Vol.31,#8,Jun. 2007 Blood Venous blood specimen / Unknown 11/13/2025 10:35 AM EST 11/13/2025 11:28 AM EST us Nevaeh Deutsch MD LAB BLOOD ORDERAB LES Final Result [facility] [address] [place] [address] [phone] * (ABNORMAL) CBC auto differential (11/13/2025 10:35 AM EST) White Blood Count 6.2 4.8 - 10.8 X10*3/uL [facility] Red Blood Count 4.10(L) 4.60 - 5.80 X10*6/uL [facility] Hemoglobin 13.6(L) 14.0 - 18.0 g/dl [facility] Hematocrit 39.5(L) 42.0 - 52.0 % [facility] Mean Corpuscular Volume 96.3 80.0 - 98.0 fL [facility] Mean Corpuscular Hemoglobin 33.2(H) 27.0 - 33.0 pg [facility] Mean Corpuscular HGB Conc 34.4 31.0 - 36.0 g/dl [facility] Red Cell Distribution Width 12.9 11.0 - 16.0 % [facility] Platelet Count 171 160 - 400 X10*3/uL [facility] Mean Platelet Volume 11.1 9.4 - 12.4 fL [facility] Neutrophils Percent Auto 63.7 45 - 73 % [facility] Imm Gran Pct Auto 0.2 0.0 - 0.4 % [facility] Lymphocytes Percent Auto 24.1 20 - 40 % [facility] Monocytes Percent Auto 8.9 2 - 11 % [facility] Eosinophils Percent Auto 2.1 0 - 4 % [facility] Basophils Percent Auto 1.0 0 - 2 % [facility] NRBC Pct Auto 0.0 0.0 - 0.2 /100WBC [facility] Neutrophils Absolute Auto 3.9 2.0 - 8.3 x10*3/uL [facility] Imm Gran Abs Auto 0.01 0.00 - 0.03 X10*3/uL [facility] Lymphocytes Absolute Auto 1.5 1.2 - 4.9 X10*3/uL [facility] Monocytes Absolute Auto 0.6 0.1 - 1.2 X10*3/uL [facility] Eosinophils Absolute Auto 0.1 0.0 - 0.4 X10*3/uL [facility] Basophils Absolute Auto 0.1 0.0 - 0.2 X10*3/uL [facility] NRBC Abs Auto 0.000 0.0 - 0.012 X10*3/uL [facility] Blood Venous blood specimen / Unknown 11/13/2025 10:35 AM EST 11/13/2025 11:28 AM EST us Nevaeh Deutsch MD LAB BLOOD ORDERAB LES Final Result [facility] [address] [place] [address] [phone] documented in this encounter Visit Diagnoses Diagnosis Annual physical exam- Primary Routine general medical examination at a health care facility Chronic paranoid schizophrenia (CMS/HCC) ([facility]) Paranoid schizophrenia, chronic condition Encounter for immunization documented in this encounter Additional Health Concerns Assessment Noted Time PHQ-9 Depression Total Score: 0 11/13/20 10:33 AM EST documented as of this encounter Care Teams Dietary Supervisor Relationship Specialty Start Date End Date Nevaeh Nice MD [address] [place] [phone] PCP - General Internal Medicine 11/13/25 documented as of this encounter
[2025-11-13 11:31] LABS: MANUAL DIFF FLAG NO
[2025-11-13 11:40] LABS: Hematocrit 39.5 % (42.0-52.0); Hemoglobin 13.6 g/dl (14.0-18.0); Imm Gran Abs Auto 0.01 X10*3/uL (0.00-0.03); Imm Gran Pct Auto 0.2 % (0.0-0.4); Lymphocytes Absolute Auto 1.5 X10*3/uL (1.2-4.9); Mean Corpuscular HGB Conc 34.4 g/dl (31.0-36.0); Mean Corpuscular Hemoglobin 33.2 pg (27.0-33.0); Mean Corpuscular Volume 96.3 fL (80.0-98.0); NRBC Abs Auto 0.000 X10*3/uL (0.0-0.012); NRBC Pct Auto 0.0 /100WBC (0.0-0.2); Platelet Count 171 X10*3/uL (160-400); Red Blood Count 4.10 X10*6/uL (4.60-5.80); White Blood Count 6.2 X10*3/uL (4.8-10.8)
--- OUTSIDE RECORDS SUMMARY | 2025-11-13 13:06 | XMS_ITS | Encounter Summary ---
Author Organization [facility] Address [address] [place] [address] Phone Care Team Providers Care Catechist Name Role Phone Raplh Hadley Primary Care Provider [phone] Encounter Details Date Type Department Care Team (Late st Contact Info) Description 07/27/2011 Documentation EM Family Medicine [address] [place] [address] Family Medicine, Physician [address] [place], [place] [phone] Social History Tobacco Use Types Packs/Day Years [...] on filedocumented in this encounter Care Teams Catechist Relationship Specialty Start Date End Date Ralph Hadley [address] [place] [address] PCP - General 07/08/17 documented as of this encounter
--- OUTSIDE RECORDS SUMMARY | 2025-11-13 13:06 | XMS_ITS | Encounter Summary ---
Author Organization [facility] Address [address] [place] [phone] Phone Care Team Providers Care Supervisor Alteration Workroom Name Role Phone Ralph Hadley Primary Care Provider [phone] Encounter Details Date Type Department Care Team (Late st Contact Info) Description 07/27/2011 Documentation EM Family Medicine [address] [place] [address] Family Medicine, Physician [address] [place], [place] [phone] Social History Tobacco Use Types Packs/Day Years [...] on filedocumented in this encounter Care Teams Supervisor Alteration Workroom Relationship Specialty Start Date End Date Ralph Hadley [address] [place] [address] PCP - General 07/08/17 documented as of this encounter
--- OUTSIDE RECORDS SUMMARY | 2025-11-13 13:06 | XMS_ITS | Clinical Summary ---
Author Organization [employer] Address [address] [facility] [address] [place] [address] Care Team Providers Care Circuit Tester Name Role Phone Nevaeh Nice MD Primary Care Pro vider Allergies No known active allergies Medications benztropine (Cogentin) 1 MG tablet Take 1 tablet by mouth 2 times daily. 5 Active D-400 10 MCG (400 UNIT) tablet Take 1 tablet by mouth Once per day. 5 Active haloperidol (Haldol) 5 MG tablet Take 1 tablet by mouth 2 times daily. 5 Active lithium 300 MG capsule Take 1 capsule by mouth 2 times daily. 5 Active RisperDAL Consta 50 MG injection INJECT THE CONTENT OF 1 syringe INTO THE MUSCLE ONCE EVERY 2 WEEKS Active traZODone (Desyrel) 50 MG tablet Take 50 mg by mouth if needed at bedtime. 5 Active nicotine (Nicoderm CQ) 14 MG/24HR patch Place 1 patch on the skin 1 (one) time each day at the same time. 42 patch 1 5 12/13/19 Active nicotine polacrilex (Nicorette) 4 MG gum Chew 1 each (4 mg) every 2 (two) hours if needed for smoking cessation. 100 each 1 5 12/13/19 Active ammonium lactate (Lac-Hydrin) 12 % lotion Apply topically if needed for dry skin. 225 g 2 5 11/13/20 Active benzoyl peroxide 5 % gel Apply topically 2 times daily. 60 g 2 5 11/13/20 Active adapalene (Differin) 0.3 % gel Apply topically at bedtime. 45 g 1 5 11/13/20 Active Active Problems Problem Noted Date Diagnosed Date Chronic paranoid schizophrenia (CMS/HCC) 012 Encounters Date Type Department Care Team Description 11/13/2025 9:15 AM EST Office Visit [facility] [address] [place] [phone] Nevaeh Nice MD Annual physical exam (Primary Dx); Chronic paranoid schizophrenia (CMS/HCC) (HCC); Encounter for immunization 11/13/2025 Refill [facility] [address] [place] [phone] Nevaeh Nice MD 11/13/[address] [address] Nevaeh Nice MD Notes found 11/13/2025 Travel 11/12/2025 Telephone [facility] [address] [place] [phone] Stephanie Cabrera MA 11/05/2025 Patient Outreach [address] [address] Nevaeh Nice MD Pre-visit Planning (Pre-visit planning - LVM ) 09/30/[address] [address] Nevaeh Salas MD SENIOR SCHEDULER 09/23/[address] [phone] Kar Dias MD [facility] - New Patient Assistance from Last 3 Months Immunizations Immunization Administration Dates Next Due DTP 12/01/1995, 2,09/04/1991,07/02,03/22/1991 Hep A, Adult 11/02/2011 Hep B, Adolescent or Pediatric 200 5,04/22/2004,11/04/2003,09/17 Hep B, adult 12/09/2011, 1,02/23/2005,08/23,11/04/2003 Hib (PRP-T) 04/15/1992, 1,07/02/1991,03/22 Influenza injectable quadriv alent preservative free 09/25/2019,01/22/2019,11/17/2016 Influenza, IIV3, injectable 09/09/2011 MMR 12/09/2011, 6,04/15/1992,07/02 Meningococcal MCV4P ACYW-135 12/12/2008 Meningococcal MPSV4 12/12/2008 OPV, Trivalent 12/01/1995, 2,07/02/1991,03/22 Pneumococcal Polysaccharide PPSV23 06/13/2011 TD (adult), 2 Lf tetanus tox oid, preservative free, adsorbed 12/09/2011,05/09/2003 Tdap 11/13/2025,12/12/2008 Family History Medical History Relation Name Comments Schizophrenia Father Relation Name Status Comments Father Social History Tobacco Use Types Packs/Day Years [...] Mass Index 22.96 11/13/2025 9:19 AM EST Plan of Treatment Upcoming Encounters Date Type Department Care Team (Late st Contact Info) Description 02/07/2026 2:00 PM EDT Office Visit [facility] [address] [place] [phone] Nevaeh Nice MD [address] [place], [place] [phone] Health Maintenance Due Date Last Done Comments Lipid Panel 1990 Family Planning (PISQ) 2005 HPV Vaccines (1 - Male 3-dose series) 2005 Hepatitis C Screening 2008 Pneumococcal Vaccine: Pediatrics (0 to 5 Years) and At-Risk Patients (6 to 49) Years (2 of 2 - PCV) 06/13/2012 06/13/2011 COVID-19 Vaccine (3 - season) 2025 05/18/2021, 03/20/2021 Influenza Vaccine (#1) 2025 9, 01/22/2019, 11/17/2016, Additional history exists Alcohol/Substance Use Screening 11/13/2026 11/13/2025 Depression Screening 11/13/2026 11/13/2025, 11/13/20 25 Disability Screening 11/13/2026 11/13/2025 SDOH Screening 11/13/2026 11/13/2025 Tobacco Screening 11/13/2026 11/13/2025 DTaP/Tdap/Td Vaccines (9 - Td or Tdap) 11/13/2035 11/13/2025, 12/09/2011, 12/12/2008, Additional history exists Zoster Vaccines (1 of [...] Procedure Name Priority Date/Time Associated Diagnosis Comments HEMOGLOBIN A1C Routine 11/13/2025 10:35 AM EST Annual physical exam CBC WITH AUTO DIFFERENTIAL Routine 11/13/2025 10:35 AM EST Annual physical exam HIV 1/2 ANTIGEN/ANTIBODY, FOURTH GENERATION W/RFL Routine 06/19/2021 3:46 PM EDT from Last 3 Months or Most Recently Relevant to Health Maintenance Results * (ABNORMAL) CBC auto differential (11/13/2025 10:35 AM EST) White Blood Count 6.2 4.8 - 10.8 X10*3/uL [facility] Red Blood Count 4.10(L) 4.60 - 5.80 X10*6/uL [facility] Hemoglobin 13.6(L) 14.0 - 18.0 g/dl [facility] Hematocrit 39.5(L) 42.0 - 52.0 % [facility] Mean Corpuscular Volume 96.3 80.0 - 98.0 fL [facility] Mean Corpuscular Hemoglobin 33.2(H) 27.0 - 33.0 pg [facility] Mean Corpuscular HGB Conc 34.4 31.0 - 36.0 g/dl [facility] Red Cell Distribution Width 12.9 11.0 - 16.0 % [facility] Platelet Count 171 160 - 400 X10*3/uL [facility] Mean Platelet Volume 11.1 9.4 - 12.4 fL [facility] Neutrophils Percent Auto 63.7 45 - 73 % [facility] Imm Gran Pct Auto 0.2 0.0 - 0.4 % [facility] Lymphocytes Percent Auto 24.1 20 - 40 % [facility] Monocytes Percent Auto 8.9 2 - 11 % [facility] Eosinophils Percent Auto 2.1 0 - 4 % [facility] Basophils Percent Auto 1.0 0 - 2 % [facility] NRBC Pct Auto 0.0 0.0 - 0.2 /100WBC [facility] Neutrophils Absolute Auto 3.9 2.0 - 8.3 x10*3/uL [facility] Imm Gran Abs Auto 0.01 0.00 - 0.03 X10*3/uL [facility] Lymphocytes Absolute Auto 1.5 1.2 - 4.9 X10*3/uL [facility] Monocytes Absolute Auto 0.6 0.1 - 1.2 X10*3/uL [facility] Eosinophils Absolute Auto 0.1 0.0 - 0.4 X10*3/uL [facility] Basophils Absolute Auto 0.1 0.0 - 0.2 X10*3/uL [facility] NRBC Abs Auto 0.000 0.0 - 0.012 X10*3/uL [facility] Blood Venous blood specimen / Unknown 11/13/2025 10:35 AM EST 11/13/2025 11:28 AM EST us Nevaeh Deutsch MD LAB BLOOD ORDERAB LES Final Result Performing Organization Address City/[facility]/ZIP Co de Phone Number [facility] [address] [place] [phone] * Hemoglobin A1c (11/13/2025 10:35 AM EST) Hemoglobin A1c 4.9 <6.0 % [facility] Comment:Hemoglobin A1C Refer ence Range Adults: 4.8 - 6.0 % Non diabetic: < 6.0 % Goal: < 7.0 %Additional Action Suggested: > 8.0 %Note: Hemoglobin A1c results are invalid for patients with abnormal amounts of HbF. Blood transfusions may impact the HbA1c concentration in the patient sample. Estimated Average Glucose 94 mg/dL [facility] Comment:eAG = Estimated ave rage glucose which is %A1C expressed asaverage glucose, using the formula of the T4Q-LfnyhngBlqtmnw Glucose study (ADAG), Diabetes Care, Vol.31,#8,Jun. 2007 Blood Venous blood specimen / Unknown 11/13/2025 10:35 AM EST 11/13/2025 11:28 AM EST us Nevaeh Deutsch MD LAB BLOOD ORDERAB LES Final Result [facility] [address] [place] [address] [phone] * HIV 1/2 ANTIGEN/ANTIBODY,FOURTH GENERATION W/RFL (06/19/2021 3:46 PM EDT) HIV-1/2 ANTIGEN AND ANTIBODIES, 4TH GENERATION W/ REFLEX NON-REACT DARVIN NON-REACT DARVIN [facility] Comment: HIV-1 antigen and HIV-1/HIV-2 [...] purpose. For additional information please refer to http://education.[employer]/faq/VBH925 (This link is being provided for informational/ educational purposes only.) The performance of this assay has not been clinically validated in patients less than 2 years old. 06/19/2021 3:46 PM EDT Nevaeh Good MD LAB BLOOD ORDERABLES Final Result [facility] [address] from Last 3 Months or Most Recently Relevant to Health Maintenance Insurance [facility] ONE CARE < 65 [place] [id number] Care Teams Circuit Tester Relationship Specialty Start Date End Date Nevaeh Nice MD [address] [place] [address] PCP - General Internal Medicine 11/13/25
--- OUTSIDE RECORDS SUMMARY | 2025-11-13 13:06 | XMS_ITS | Encounter Summary ---
Author Organization [facility] Address [address] [place] [phone] Phone Care Team Providers Care Health Information Clerk Name Role Phone Ralph Hadley Primary Care Provider Encounter Details Date Type Department Care Team (Late st Contact Info) Description 07/14/2017 Conversion Encounter [facility] [address] [place] [address] Social History Tobacco Use Types Packs/Day Years [...] on filedocumented in this encounter Care Teams Health Information Clerk Relationship Specialty Start Date End Date Ralph Hadley [address] [place] [address] PCP - General 07/08/17 documented as of this encounter
--- OUTSIDE RECORDS SUMMARY | 2025-11-13 13:06 | XMS_ITS | Encounter Summary ---
Author Organization [employer] Address [address] [place] [id number] Care Team Providers Care Employment Instructional Associate Name Role Phone Nevaeh Nice MD Primary Care Pro vider Reason for Visit * Reason Comments Med Change Request Encounter Details Date Type Department Care Team ([facility] Contact Info) Description 11/13/2025 Refill [facility] [address] [place] [address] Nevaeh Nice MD [address] [place] [address] Social History Tobacco Use Types Packs/Day Years [...] AM EDT documented as of this encounter Functional Status * Over the past 2 weeks, how often have you been bothered by any of the following problems? Question Answer Date of Assessment Author Patient Health Questionnaire -2 Score 0 11/13/2025 10:33 AM Michaela Velásquez MA * Little interest or pleasure in [...] DAVID-7 Total Score 1 11/13/2025 10:33 AM EST Michaela Rubin MA documented as of this encounter Plan of Treatment Upcoming Encounters Date Type Department Care Team (Late st Contact Info) Description 02/07/2026 2:00 PM EDT Office Visit [facility] MED[facility] [address] [place] [address] Nevaeh Nice MD [address] [place] [address] documented as of this encounter Visit Diagnoses Not on filedocumented in this encounter Additional Health Concerns Assessment Noted Time PHQ-9 Depression Total Score: 0 11/13/20 10:33 AM EST documented as of this encounter Care Teams Employment Instructional Associate Relationship Specialty Start Date End Date Nevaeh Nice MD [address] [place] [phone] PCP - General Internal Medicine 11/13/25 documented as of this encounter
--- OUTSIDE RECORDS SUMMARY | 2025-11-13 13:06 | XMS_ITS | Clinical Summary ---
Author Organization [facility] Address [address] [place] [address] Phone Care Team Providers Care Rn Unit Manager Name Role Phone Ralph Hadley Primary Care Provider [phone] Immunizations Immunization Administration Dates Next Due DTP [...] age to complete this topic Care Teams Rn Unit Manager Relationship Specialty Start Date End Date Ralph Hadley [address] [place] [address] PCP - General 07/08/17
--- OUTSIDE RECORDS SUMMARY | 2025-11-13 13:07 | XMS_ITS | Encounter Summary ---
Author Organization [facility] Address [address] [place] [phone] Phone Care Team Providers Care Transplant Rn Name Role Phone Ralph Hadley Primary Care Provider [phone] Encounter Details Date Type Department Care Team (Late st Contact Info) Description 04/21/2010 Documentation [facility] Family Medicine [address] [place] [address] Family Medicine, Physician [address] [place], [place] [id number] Social History Tobacco Use Types Packs/Day Years [...] on filedocumented in this encounter Care Teams Transplant Rn Relationship Specialty Start Date End Date Ralph Hadley [address] [place] [address] PCP - General 07/08/17 documented as of this encounter
--- OUTSIDE RECORDS SUMMARY | 2025-11-13 13:07 | XMS_ITS | Encounter Summary ---
Author Organization [employer] Address [address] [place] [address] Care Team Providers Care Manager Of Regulatory Affairs Name Role Phone Nevaeh Nice MD Primary Care Pro vider Reason for Visit * Reason Onset Date Comments Notes found 11/13/2025 Encounter Details Date Type Department Care Team ([facility] st Contact Info) Description 11/13/2025 Telephone [facility] MEDICINE [address] [place] [address] Nevaeh Nice MD [address] [place] [address] Notes found Social History Tobacco Use Types Packs/Day Years [...] Rubin MA documented as of this encounter Miscellaneous Notes * Telephone Encounter - Michaela Rubin MA - 11/13/2025 10:55 AM EST Full Stack Developer found the Following notes: Back pain/Injury from [facility] date of 04/01/25 Notes left on providers desk Nothing from [facility] Full Stack Developer needs wrist fracture ED note and results Full Stack Developer needs [facility] release form since nothing was found in [facility] or [facility]. documented in this encounter Plan of Treatment Upcoming Encounters Date Type Department Care Team (Late st Contact Info) Description 02/07/2026 2:00 PM EDT Office Visit [facility] MEDICINE [address] [place] [phone] Nevaeh Nice MD [address] [place] [address] documented as of this encounter Visit Diagnoses Not on filedocumented in this encounter Additional Health Concerns Assessment Noted Time PHQ-9 Depression Total Score: 0 11/13/20 10:33 AM EST documented as of this encounter Care Teams Manager Of Regulatory Affairs Relationship Specialty Start Date End Date Nevaeh Nice MD [address] [place] [address] PCP - General Internal Medicine 11/13/25 documented as of this encounter
--- OUTSIDE RECORDS SUMMARY | 2025-11-13 13:07 | XMS_ITS | Encounter Summary ---
Author Organization [employer] Address [address] [facility] [address] [place] [address] Care Team Providers Care Mail Handler Name Role Phone Unavailable Primary Care Provider Unavailabl e Encounter Details Date Type Department Care Team ([facility] st Contact Info) Description 11/12/2025 Telephone [facility] [address] [place] [address] Stephanie Cabrera MA Social History Tobacco Use Types Packs/Day Years Used Date Smoking Tobacco: Never Assessed Alcohol Answer Date Recorded How often do [...] encounter Miscellaneous Notes * Telephone Encounter - Stephanie Cabrera MA - 11/12/2025 12:46 PM EST Chart Prep Labs: not applicable Images: not applicable Referrals: not applicable Vaccines due: Covid, Flu, Tdap, and HPV Screenings: not applicable Overdue care gaps: SBIRT, SDOH, PHQ-9, and Disability screen documented in this encounter Plan of Treatment Upcoming Encounters Date Type Department Care Team (Late st Contact Info) Description 02/07/2026 2:00 PM EDT Office Visit [facility] MEDICINE [address] [place] [address] Nevaeh Nice MD [address] [place] [address] documented as of this encounter Visit Diagnoses Not on filedocumented in this encounter
--- OUTSIDE RECORDS SUMMARY | 2025-11-13 13:07 | XMS_ITS | Encounter Summary ---
Author Organization [employer] Address [address] [facility] [address] [place] [address] Care Team Providers Care Turning Machine Set Up Operator Name Role Phone Nevaeh Nice MD Primary Care Pro vider Encounter Details Date Type Department Care Team (Latest Contact Info) Description 11/13/2025 Travel Social History Tobacco Use Types Packs/Day Years [...] Description 02/07/2026 2:00 PM EDT Office Visit [address] [address] Nevaeh Nice MD [address] [place] [address] documented as of this encounter Visit Diagnoses Not on filedocumented in this encounter Additional Health Concerns Assessment Noted Time PHQ-9 Depression Total Score: 0 11/13/20 10:33 AM EST documented as of this encounter Care Teams Turning Machine Set Up Operator Relationship Specialty Start Date End Date Nevaeh Nice MD [address] [place] [address] PCP - General Internal Medicine 11/13/25 documented as of this encounter
--- OUTSIDE RECORDS SUMMARY | 2025-11-13 13:07 | XMS_ITS | Encounter Summary ---
Author Organization [facility] Address [address] [place] [phone] Phone Care Team Providers Care Family Support Coordinator Name Role Phone Ralph Hadley Primary Care Provider [phone] Encounter Details Date Type Department Care Team (Late st Contact Info) Description 03/23/2011 Documentation EM Family Medicine [address] [place] [address] Family Medicine, Physician [address] [place], [place] [phone] Social History Tobacco Use Types Packs/Day Years [...] on filedocumented in this encounter Care Teams Family Support Coordinator Relationship Specialty Start Date End Date Ralph Hadley [address] [place] [address] PCP - General 07/08/17 documented as of this encounter
[2025-11-13 15:01] LABS: Alanine Aminotransferase 30 U/L (0-40); Albumin Level 5.3 g/dL (3.5-5.0); Alkaline Phosphatase 76 U/L (39-117); Anion Gap 11 (12-20); Aspartate Amino Transferase 62 U/L (5-37); Blood Urea Nitrogen 8 mg/dL (9-16); Calcium 9.9 mg/dL (8.4-10.2); Carbon Dioxide 27 mmol/L (22-29); Chloride 106 mmol/L (96-108); Cholesterol 195 mg/dL (<200); Estimated Glomerular Filt Rate > 60; HDL Cholesterol 49 mg/dL (>40); Potassium 4.7 mmol/L (3.3-5.1); Sodium 139 mmol/L (135-145); Total Protein 7.7 g/dL (6.5-8.0); Triglycerides 113 mg/dL (<150)
[2025-11-13 15:40] LABS: CT PCR Urine NOT DETECTED (Not Detect.); NG PCR Urine NOT DETECTED (Not Detect.)
[2025-11-13 16:46] LABS: Iron 60 mcg/dL (45-160); Percent Iron Saturation 23 % (15-50); Total Iron Binding Capacity 265 mcg/dL (228-428); Unsaturated Iron Binding 205 ug/dL
[2025-11-13 17:01] LABS: Ferritin 78 ng/mL (20-250)
[2025-11-14 04:53] LABS: Syphilis Screen Nonreactive (Nonreactive)
[2025-11-14 04:58] LABS: HBS Num1 0.00 mIU/mL (0-7.99); HBc Num1 0.07 S/CO (0.00-0.79); HIV Num 1 0.08 S/CO (0.00-0.99); ~HepC Num1 0.07 S/CO (0.00-0.79); ~Hepatitis B Surface Antibody NONREACTIVE (Nonreactive); ~Hepatitis C Antibody Nonreactive (Nonreactive)
[2025-11-14 13:38] LABS: HBsAGNum1 0.29 S/CO (0.00-0.99); Hepatitis B Surface Antigen Negative (Negative)
== END 2025-11-13 10:31 | disposition home or self-care (01) ==
LOC: HO.HHCL 10:30
PROVIDERS: Student in an Organized Health Care Education/Training Program; PCP Internal Medicine; Visit Provider Internal Medicine
DX: Z00.00 Encounter for general adult medical examination without abnormal findings (principal); Z11.4 Encounter for screening for human immunodeficiency virus [HIV]; Z20.2 Contact with and (suspected) exposure to infections with a predominantly sexual mode of transmission; Z13.6 Encounter for screening for cardiovascular disorders; Z13.29 Encounter for screening for other suspected endocrine disorder; Z13.1 Encounter for screening for diabetes mellitus; Z13.0 Encounter for screening for diseases of the blood and blood-forming organs and certain disorders involving the immune mechanism; Z13.21 Encounter for screening for nutritional disorder
CPT/HCPCS: 80053; 80061; 82306; 82728; 83036; 83540; 84443; 85025; 86704; 86706; 86780; 86803; 87340; 87389; 87491; 87591